=== PATIENT | female | born 1950 | race Caucasian/White ===

== ENCOUNTER 2016-11-14 11:24 | Outpatient (RCR) ==
[2015-09-01 20:41] VITALS: BMI 50.4
--- NOTE | 2016-11-14 13:02 | RS.OPPTEV2 ---
Date of Note: 11/14/16 Visit #: 1 Date of Evaluation: 11/14/16 Payer Source: MEDICARE Date of Onset/Injury/Change in Status: 09/30/16 Surgery Performed?: No Treatment Diagnosis: Lower back pain History of Condition/Mechanism of Injury:: Pt has had back problems off and on since she was 18 yrs old. Now it is hurting all the time. 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 Now she states that her legs feel like rubber bands and do very little to support her so she uses a WC or office chair for her mobility and feels that she will fall when walking even in her bathroom. Prior Level of Function.....Patient was independent with: ADL's, Self Care, Work /Vocation, Caregiving, Ambulation/Mobility, Community Integration/Access Functional Limitations: Sleep, Self Care, ADL's, Reaching, Pushing, Pulling, Lifting, Carrying, Sitting, Standing, Bending, Squatting, Ambulation, Community Access/Integration Current Subjective/complaints:: Patient uses WC and desk chairs for her mobility. She walks very little and states her legs are very weak. She denies falling in the past year but states she staggers all the time. Medical History Medical History Comments:: Graves disease, COPD, continuous O2 at 2 L/min, a fib , CHF, DM type II, self reported vascular disease. Surgical History: Thoracic Spine Smoking Status: Never smoker Pain Assessment - Pain Description Pain Location: Lower back and BLEs (not sure if this is venous or radicular pain ) Pain Description: Burning, Throbbing Pain Description: Constant pain Current Pain Intensity: 6/10 Worst Pain Intensity: 9/10 Functional Outcome Measure Tinetti: 16 (43% disability) - G Codes & Severity Modifier G Codes & Modifier: Mobility, Moving & Walking Around. Eval - CK. Goal - CJ Source of G Code score: Tinetti Observation - Observation Inspection: Patient is obese, in WC with O2 via NC at 2 L/min. Posture: Increased Lumbar Lordosis Gait - Gait Pattern General Gait Pattern Observation: Antalgic Gait (Patient has severe SOB with ambulation and walked ~ 50' prior to need for sitting rest. pO2 86% with this distance and O2 supplimented.) General Muscle Strength: BLE strength 3+ - 4-/5 throughout with rapid muscle fatigue. - ROM Lumbar Flexion: Hand reach to Mid-Thighs Sidebending to Left: Reach to Mid-thigh Sidebending to Right: Reach to Mid-thigh Lumbar Spine ROM Limitations: Pain Palpation Palpation Findings: Tenderness (Right lumbar paraspinals. Difficult to palpate due to obesity.) Sensation - Sensation Sensation Description: Burning (BLEs) Balance - Standing Balance Static Standing Balance: Good Dynamic Standing Balance: Fair Interventions - Exercise/Activities/Manual Therapy Exercises/Activities: NA Manual Therapy: NA - Charges Total Direct Minutes: 45 Total Treatment Time: 45 Procedures billed for this date of service:: PT Robert (High) Assessment Assessment: Patient has constant back pain which has led to muscle weakness in her BLEs and trunk along with decreased balance in standing and decreased functional mobility. Patient Education: Education of diagnosis, Activity Modification, Education of Plan of Care Rehab Potential: Good Short Term Goals Goal #1: Pt reports 50% improvement in core stability w/ bathroom transfers Goal to be met by: 11/30/16 Goal #2: Patient reports average back pain 3/10 Goal to be met by: 11/30/16 Goal #3: Independent in basic HEP Goal to be met by: 11/30/16 Jail Goals Goal #1: Intermittent back pain. Goal to be met by: 12/14/16 Goal #2: BLE strength 5/5 to improve stability decrease back strain. Goal to be met by: 12/14/16 Goal #3: Patient is able to ambulate 200' with O2 and min c/o LBP. Goal to be met by: 12/14/16 Goal #4: I with DC HEP Goal to be met by: 12/14/16 Plan - Treatment to be Provided Procedures: Therapeutic Exercises, Therapeutic Activity, Gait Training, Manual Therapy, Patient Education Modalities: Electrical Stimulation, Ultrasound/Phonophoresis, Cryotherapy, Hot Packs - Treatment Plan Frequency: 2-3X/wk Duration: 4 weeks ORDER # VISITS AND/OR THROUGH DATE: 12/14/2016 - Treatment Code (1) Lumbar radiculopathy Comments: .16 (2) Deconditioned low back Comments: 62.81
--- NOTE | 2016-11-19 13:45 | RS.CXNS ---
Date of scheduled appointment: 11/19/16 Type: No Show
--- NOTE | 2017-01-01 14:31 | RS.QUICKDC ---
Discharge from PT Date of Discharge: 11/28/16 Number of Visits: 1 Reason for Discharge: Patient attended the evaluation only. She did not show for her next scheduled appointment and has not contacted the department to schedule further treatment sessions.
== END 2016-11-27 ==
PROVIDERS: ATTEND Pain Medicine Interventional Pain Medicine
DX: M54.16 Radiculopathy, lumbar region (principal)

== ENCOUNTER 2016-11-14 11:27 | Outpatient (CLI) ==
[2015-09-01 20:41] VITALS: BMI 50.4
--- NOTE | 2016-11-14 13:41 | DI ---
EXAM: Five views of the lumbar spine HISTORY: Lumbar radiculopathy. COMPARISON: CT abdomen pelvis 08/13/2013 FINDINGS: Vertebral bodies demonstrate no acute compression fracture. There is 0.3 cm of retrolisth esis of L5 on S1 with an equal amount of anterolisthesis of L4 on L5. No lytic or blastic lesion is identified. Scattered disc osteophytes and facet arthropathy are present. There is narrowing at t he neural foramen at L5-S1. The soft tissues are unremarkable. IMPRESSION: 1. No acute compression fracture with grade 1 retrolisthesis of L5 on S1 and grade 1 anterolisthesi s of L4 on L5. 2. Multilevel scattered degenerative disease of the spine with narrowing of the neural foramen at L5 -S1.
== END 2016-11-14 11:28 | disposition home or self-care (01) ==
LOC: RAD 11:27
PROVIDERS: ATTEND Nurse Practitioner
DX: M54.16 Radiculopathy, lumbar region (principal)

== ENCOUNTER 2016-11-28 18:18 | Outpatient (CLI) ==
[2016-11-28 18:34] VITALS: BMI 48.9
== END 2016-11-28 18:19 ==
LOC: AMBL 18:18
PROVIDERS: ATTEND Internal Medicine
DX: M25.572 Pain in left ankle and joints of left foot (principal); W54.1XXA Struck by dog, initial encounter

== ENCOUNTER 2016-11-28 18:26 | Emergency (ER) | payer OTHER ==
[2016-11-28 18:34] VITALS: BP 152/93; TEMP 99.9; BMI 48.9
--- NOTE | 2016-11-28 18:37 | ED.PDOC ---
General ED Provider: Dr. EVELYN PARDO Chief Complaint: Ankle Pain/Injury Stated Complaint: ankle, foot pain left side Time Seen by Physician: 18:34 (nurse present at all times ) Mode of Arrival: Ambulance Information Source: Patient Primary Care Provider: PATRICIA PICKARD Nursing and Triage Documentation Reviewed and Agree: Yes (injury limited to left foot and ankle) Musculoskeletal Complaint Exam - Ankle/Foot Complaint/Exam Location of Injury: Reports: Left, Ankle, Foot Mechanism of Injury: Reports: Trauma (blunt force dog steppped on her foot) Onset/Duration: 1 hr Symptoms Are: Reports: Still present Initial Severity: Moderate Current Severity: Moderate Character: Reports: Aching, Throbbing Alleviating: Reports: Rest, Position Aggravating: Reports: Movement Able to Bear Weight: Yes Associated Signs and Symptoms: Denies: Swelling, Redness, Bruising, Fever, Weakness, Numbness, Tingling Gout Risk Factors: Reports: >40 years old Related Surgical History: Reports: None Lower Extremity Findings: Absent: Swelling, Abnormal contour, Rotation, Laceration Achilles Tendon Abnormality: No Differential Diagnosis: Closed Fracture Review of Systems - Review Of Systems Constitutional: Reports: No symptoms Eyes: Reports: No symptoms Ears, Nose, Mouth, Throat: Reports: No symptoms Respiratory: Reports: No symptoms Cardiac: Reports: No symptoms GI: Reports: No symptoms : Reports: No symptoms Musculoskeletal: Reports: Joint pain Skin: Reports: No symptoms Neurological: Reports: No symptoms Endocrine: Reports: No symptoms Hematologic/Lymphatic: Reports: No symptoms All Other Systems: Reviewed and Negative Past Medical History - Past Medical History Previously Healthy: No Endocrine: Reports: None Cardiovascular: Reports: Hypertension, CHF Respiratory: Reports: None Hematological: Reports: None Gastrointestinal: Reports: None Genitourinary: Reports: None Neuro/Psych: Reports: None Musculoskeletal: Reports: None Cancer: Reports: None Last Menstrual Period: 1979 - Surgical History General Surgical History: Reports: None - Family History Family History: Reports: None - Social History Smoking Status: Former smoker Hx Substance Use: No Alcohol Screening: None - Immunizations Tetanus Shot up to Date: Yes Physical Exam - Physical Exam Appearance: Well-appearing, No pain distress, Well-nourished Eyes: LOREN, EOMI, Conjunctiva clear ENT: Ears normal, Nose normal, Oropharynx normal Respiratory: Airway patent, Breath sounds clear, Breath sounds equal, Respirations nonlabored Cardiovascular: RRR, Pulses normal, No rub, No murmur GI/: Soft, Nontender, No masses, Bowel sounds normal, No Organomegaly Musculoskeletal: Normal strength, ROM intact, No edema, No calf tenderness Skin: Warm, Dry, Normal color Neurological: Sensation intact, Motor intact, Reflexes intact, Cranial nerves intact, Alert, Oriented Psychiatric: Affect appropriate, Mood appropriate Interpretation - Radiology Interpretation Radiology Interpretation By: ED Physician Critical Care Note - Critical Care Note Total Time (mins): 0 Course - Course Orders, Labs, Meds: Orders Category Date Time Status ANKLE, LEFT MIN 3 VIEWS Stat RADS 11/28/16 18:29 Ordered FOOT, LEFT 3 VIEWS Stat RADS 11/28/16 18:29 Ordered Vital Signs: Temp Pulse Resp BP Pulse Ox 11/28/16 18:27 99.9 F H 88 24 152/93 H 98 Departure - Departure Time of Disposition: 18:37 Disposition: HOME SELF-CARE Discharge Problem: Ankle pain, Left foot pain Instructions: Arthralgia (ED) Condition: Good Pt referred to PMD for follow-up: No Additional Instructions: Please call your Family Physician as soon as possible to schedule a follow-up appointment. Prescriptions: Hydrocodone/Acetaminophen [[place] 5-325 Tablet] 1 each PO Q6HR PRN #7 tablet PRN Reason: PAIN Allergies/Adverse Reactions: Allergies amoxicillin [Amoxicillin] Adverse Reaction (Verified 03/17/14 21:45) azithromycin Adverse Reaction (Verified 03/17/14 21:45) clarithromycin [From Biaxin] Adverse Reaction (Verified 03/17/14 21:45) Macrolide Antibiotics Adverse Reaction (Verified 03/17/14 21:45) Hives telithromycin [From KETEK] Adverse Reaction (Verified 03/17/14 21:45) Home Medications: Ambulatory Orders Albuterol Sulfate [Proair Hfa] 2 puff IH Q4H 03/17/14 Levothyroxine Sodium [Synthroid] 175 mcg PO DAILY 03/17/14 Aspirin [Adult Low Dose Aspirin EC] 81 mg PO BID 09/04/15 Digoxin [Lanoxin] 125 mcg PO DAILY #30 tablet 09/04/15 Diltiazem HCl [Cardizem] 45 mg PO Q12HR tablet 09/04/15 Fluticasone Propionate [Flonase] 1 spray LAYLA DAILY btl 09/04/15 Furosemide [Lasix] 20 mg PO DAILY #30 tablet 09/04/15 Hydrocodone Bit/Acetaminophen [[place] 7.5-325] 1 tab PO Q6HR PRN 09/04/15 Levofloxacin [Levaquin] 500 mg PO QDAC #5 tablet 09/04/15 Lisinopril [Zestril] 5 mg PO DAILY #30 tablet 09/04/15 Metformin HCl [Glucophage] 500 mg PO BIDWM #60 tablet 09/04/15 Hydrocodone/Acetaminophen [[place] 5-325 Tablet] 1 each PO Q6HR PRN #7 tablet 10/16
--- NOTE | 2016-11-29 07:15 | DI ---
EXAM: Radiographs, left ankle HISTORY: Left ankle pain. COMPARISON: None available. TECHNIQUE: Three views. FINDINGS: Bone mineralization is decreased. There is no fracture or dislocation. The joint spaces are maintained. Small plantar calcaneal spur noted. Diffuse subcutaneous edema noted. Subcutaneo us calcifications seen in the lower leg.. IMPRESSION: No fracture or dislocation.
--- NOTE | 2016-11-29 07:17 | DI ---
EXAM: Radiographs, left foot HISTORY: Left foot pain. COMPARISON: None available. TECHNIQUE: Three views. FINDINGS: Bone mineralization is decreased. There is no fracture or dislocation. The joint spaces are maintained. Mild marginal osteophyte formation seen at the talonavicular and first MTP joints, consistent with osteoarthritis. Small plantar calcaneal spur noted. No focal soft tissue abnormal ity is seen. IMPRESSION: No fracture or dislocation.
== END 2016-11-28 20:33 | disposition home or self-care (01) ==
LOC: ED 18:26
DX: M25.572 Pain in left ankle and joints of left foot (principal); W54.1XXA Struck by dog, initial encounter
CPT/HCPCS: 99283

== ENCOUNTER 2017-01-29 06:41 | Outpatient (CLI) ==
[2017-01-29 09:26] LABS: BILIRUBIN,URINE Negative (NEGATIVE); KETONES,URINE Negative (NEGATIVE); LEUKOCYTE ESTERASE ,URINE 3+ (NEGATIVE); NITRITE,URINE Positive (NEGATIVE); PH,URINE 5.5 (5-9); PROTEIN,URINE 1+ (NEGATIVE); URINE, BLOOD 2+ (NEGATIVE)
[2017-01-29 09:34] LABS: ADD URINE MICROSCOPIC YES
--- NOTE | 2017-01-30 12:24 | ECHO2D ---
Date of Exam: 01/29/17 Ordering Physician: PATRICIA PICKARD Reason for Echo: LVH, A-FIB, SOB M-Mode Normal Adult Results LV Dimensions Normal Adult Results AoV Opening excursions >1.6 >1.6 LVEDD-base- 3.5-5.8 5.0 Ao root dimensions 2.0-3.7 3.3 LVESD-base- 3.1-4.6 L. Atrium dimensions 1.9-3.8 6.2 Post. Wall thickness 0.8-1.1 1.4 IV septum (thickness) 0.7-1.2 1.4 Post. Wall excursion 0.72-1.3 NORMAL Septal motion 0.4 Systolic motion R. Ventricular cavity 1.5-2.0 NORMAL LVEF 60% 48% Paradoxical septal wall motion NORMAL 2-D : ENLARGED LEFT ATRIAL CAVITY--NORMAL VALVES--NO EFFUSION, NO THROMBUS, STIFF HYPOKINETIC SEPTUM--MAYBE PARADOXICAL SEPTAL WALL. M-MODE: MV: NORMAL--POSSIBLE MITRAL VALVE PROLAPSE AV: NORMAL TV: NORMAL PV: CHAMBER SIZE: ENLARGED LEFT ATRIAL CAVITY WALL MOTION: STIFF HYPOKINETIC/MAYBE PARADOXICAL SEPTAL WALL PERICARDIUM: NORMAL INTERPRETATION: 1. PARADOXICAL/HYPOKINETIC STIFF SEPTUM LEFT VENTRICULAR EJECTION FRACTION 45 TO 50% 2. LEFT VENTRICLE HYPERTROPHY 3. ENLARGED LEFT ATRIAL CAVITY MTDD
== END 2017-01-29 06:42 | disposition home or self-care (01) ==
LOC: CAR 06:41
PROVIDERS: ATTEND Internal Medicine
DX: R30.0 Dysuria (principal); R06.02 Shortness of breath; I48.91 Unspecified atrial fibrillation; I51.7 Cardiomegaly
CPT/HCPCS: 81001; 87086; 87186; 93005; 93010

== ENCOUNTER 2017-03-18 11:22 | Outpatient (CLI) | payer OTHER ==
--- NOTE | 2017-03-18 12:24 | DI ---
Exam: Five views lumbar spine including bilateral oblique. Clinical indication: Low back pain with radiculopathy. Findings: There is a mild lumbar scoliosis convex left. There is also mild anterolisthesis of L4 on L5 of mau roximately 0.4 cm. The remainder the alignment is within normal limits. There is mild multilevel degenerative disc disease throughout the lumbar spine with moderate degener ative disc disease at the L5-S1 level. The remainder the visualized bony structures are grossly unr emarkable. There is aortoiliac atherosclerotic vascular calcifications. Impression: 1. Mild lumbar scoliosis convex left. 2. Mild anterolisthesis of L4 on L5. 3. Multilevel degenerative disc disease which is moderate at the L5-S1 level.
== END 2017-03-18 11:23 | disposition home or self-care (01) ==
LOC: RAD 11:22
PROVIDERS: ATTEND Nurse Practitioner
DX: M54.16 Radiculopathy, lumbar region (principal); M51.36 Other intervertebral disc degeneration, lumbar region; M54.40 Lumbago with sciatica, unspecified side

== ENCOUNTER 2017-09-23 10:53 | Inpatient (IN) | payer OTHER ==
[2017-09-23] MEDS ORDERED: XOPENEX 0.63 MG NEB STA (10:55)
[2017-09-23] MEDS ORDERED: SODIUM CHLORIDE 1,000 ML IV STA ×3 (10:57→12:14)
[2017-09-23] MEDS ORDERED: LEVAQUIN 500 MG in PREMIX 100 ML D5W 1 BAG IV STA (10:58)
--- NOTE | 2017-09-23 11:21 | ED.PDOC ---
General ED Provider: Dr. FADUMO CHARLTON-ER Chief Complaint: Respiratory Complaint Stated Complaint: tal been sick for a week with cough, chest congestion and fever Time Seen by Physician: 11:00 Mode of Arrival: Ambulance Information Source: Patient Exam Limitations: No limitations Primary Care Provider: PATRICIA KAUR Nursing and Triage Documentation Reviewed and Agree: Yes Reviewed sepsis parameters & appropriate labs ordered?: Yes System Inflammatory Response Syndrome: Temp 101F or Greater Sepsis Protocol: For patient's 13 years and over: Temp is 96.8 and below OR 101 and greater Pulse >90 BPM Resp >20/minute Acutely Altered Mental Status Are patient's symptoms suggestive of a new infection, such as: -Pneumonia -Skin, Soft Tissue -Endocarditis -UTI -Bone, Joint Infection -Implantable Device -Acute Abdominal Infection -Wound Infection -Meningitis -Blood Stream Catheter Infection -Unknown Respiratory Complaint Exam - Shortness of Air Complaint/Exam Onset/Duration: several days Symptoms Are: Still present Timing: Constant Initial Severity: Moderate Current Severity: Moderate Character: Reports: Dyspnea at rest Aggravating: Reports: None Alleviating: Reports: None Associated Signs and Symptoms: Reports: Cough, Chest pain with cough, Fever, Chills, Nasal congestion, Labored breathing History of Healthcare-Acquired Pneumonia: No Pseudomonas Risk Factors: Reports: Chronic Lung Disease Tuberculosis Risk Factors: Reports: Chronic Resp. Faliure Home Oxygen Use: Yes Recent Stress Test: No Recent Echo/LV Function: No Respiratory Distress: None Stridor Present: No Tracheal Deviation: No Subcutaneous Emphysema: No Accessory Muscle Use: No Retractions: Not Present Diminished Breath Sounds: No Prolonged Expiratory Phase: No Unable to Speak Full Sentences: No Fatigue: Yes Leg Swelling: No Devyn's Sign Present: No Grunting Respirations: No Kussmaul Respirations: No Differential Diagnoses: Pneumonia Quality Indicator For Non-Traumatic Chest Pain/Syncope: EKG Performed Review of Systems - Review Of Systems Constitutional: Reports: Chills, Fever, Weakness Eyes: Reports: No symptoms Ears, Nose, Mouth, Throat: Reports: No symptoms Respiratory: Reports: Cough Cardiac: Reports: No symptoms GI: Reports: No symptoms : Reports: No symptoms Musculoskeletal: Reports: No symptoms Skin: Reports: No symptoms Neurological: Reports: No symptoms Endocrine: Reports: No symptoms Hematologic/Lymphatic: Reports: No symptoms All Other Systems: Reviewed and Negative Past Medical History - Past Medical History Previously Healthy: No Endocrine: Reports: None Cardiovascular: Reports: Hypertension, CHF Respiratory: Reports: COPD Hematological: Reports: None Gastrointestinal: Reports: None Genitourinary: Reports: None Neuro/Psych: Reports: None Musculoskeletal: Reports: None Cancer: Reports: None Last Menstrual Period: n/a - Surgical History General Surgical History: Reports: None - Family History Family History: Reports: None - Social History Smoking Status: Former smoker Hx Substance Use: No Alcohol Screening: None Lives: With family Physical Exam - Physical Exam Appearance: Ill-appearing Ill-appearing: Mild Eyes: LOREN, EOMI, Conjunctiva clear ENT: Ears normal Neck: Supple Respiratory: Crackles, Rhonchi Cardiovascular: RRR, Pulses normal, No rub, No murmur GI/: Soft Musculoskeletal: Normal strength Skin: Warm, Dry, Normal color Neurological: Sensation intact, Motor intact, Reflexes intact, Cranial nerves intact, Alert, Oriented Psychiatric: Affect appropriate, Mood appropriate Interpretation - Radiology Interpretation Radiology Interpretation By: Radiologist Radiology Results: Positive Exam Interpreted: CT Scan ("bilateral pneumonia") Re-Evaluation - Re-Evaluation Time of Re-Evaluation: 13:32 Status: Improved Vital Signs Stable: Yes Pain Level: 0 Appearance: NAD Lungs: Clear Skin: Warm and Dry Neuro: Alert and Oriented X3 CV: RRR Physician Notification - Case Discussed Physician Notified: dr kaur Time of Notification: 13:32 Critical Care Note - Critical Care Note Total Time (mins): 30 Course - Course Hematology/Chemistry: 09/23/17 11:30 09/23/17 11:30 Orders, Labs, Meds: Lab Review 09/23/17 09/23/17 09/23/17 10:54 11:10 11:30 WBC 17.44 H RBC 3.33 L Hgb 8.3 L Hct 27.7 L MCV 83.2 MCH 24.9 L MCHC 30.0 L RDW Coeff of Taylor 17.6 H Plt Count 381 Immature Gran % (Auto) 0.6 Neut % (Auto) 77.0 Lymph % (Auto) 15.8 [place] % (Auto) 5.6 Eos % (Auto) 0.9 Baso % (Auto) 0.1 Immature Gran # (Auto) 0.1 Neut # 13.4 H Lymph # 2.8 [place] # 1.0 Eos # 0.2 Baso # 0.0 Puncture Site Rr O2 Saturation 89.0 L ABG pH 7.425 ABG pCO2 32.6 L ABG pO2 55.0 L* ABG HCO3 21.4 L ABG Total CO2 22 ABG Base Excess -3 L Scooby Test + O2 Delivery Device Nc Oxygen Liter Flow 2.00 FiO2 % 28.0 Sodium Potassium Chloride Carbon Dioxide Anion Gap BUN Creatinine Estimated GFR (MDRD) BUN/Creatinine Ratio Glucose Calcium Total Bilirubin AST ALT Alkaline Phosphatase Total Creatine Kinase Troponin I B-Natriuretic Peptide Total Protein Albumin Globulin Albumin/Globulin Ratio Procalcitonin Urine Color Urine Clarity Urine pH Ur Specific [place] Urine Protein Urine Glucose (UA) Urine Ketones Urine Blood Urine Nitrite Urine Bilirubin Urine Urobilinogen Ur Leukocyte Esterase Urine Microscopic RBC Urine Microscopic WBC Ur Squamous Epith Cells Urine Bacteria Digoxin Influenza A (Rapid) Negative by naat Influenza B (Rapid) Positive by naat H 09/23/17 09/23/17 09/23/17 11:30 11:30 11:30 WBC RBC Hgb Hct MCV MCH MCHC RDW Coeff of Taylor Plt Count Immature Gran % (Auto) Neut % (Auto) Lymph % (Auto) [place] % (Auto) Eos % (Auto) Baso % (Auto) Immature Gran # (Auto) Neut # Lymph # [place] # Eos # Baso # Puncture Site O2 Saturation ABG pH ABG pCO2 ABG pO2 ABG HCO3 ABG Total CO2 ABG Base Excess Scooby Test O2 Delivery Device Oxygen Liter Flow FiO2 % Sodium 134 L Potassium 4.6 Chloride 104 Carbon Dioxide 21 L Anion Gap 13.6 BUN 28 H Creatinine 1.65 H Estimated GFR (MDRD) 31.00 BUN/Creatinine Ratio 16.96 Glucose 260 H Calcium 8.4 Total Bilirubin 0.4 AST 16 ALT 10 L Alkaline Phosphatase 71 Total Creatine Kinase 12 Troponin I 0.0450 B-Natriuretic Peptide 124 H Total Protein 9.3 H Albumin 2.4 L Globulin 6.9 Albumin/Globulin Ratio 0.35 Procalcitonin Urine Color Urine Clarity Urine pH Ur Specific [place] Urine Protein Urine Glucose (UA) Urine Ketones Urine Blood Urine Nitrite Urine Bilirubin Urine Urobilinogen Ur Leukocyte Esterase Urine Microscopic RBC Urine Microscopic WBC Ur Squamous Epith Cells Urine Bacteria Digoxin 0.40 L Influenza A (Rapid) Influenza B (Rapid) 09/23/17 09/23/17 11:30 12:07 WBC RBC Hgb Hct MCV MCH MCHC RDW Coeff of Taylor Plt Count Immature Gran % (Auto) Neut % (Auto) Lymph % (Auto) [place] % (Auto) Eos % (Auto) Baso % (Auto) Immature Gran # (Auto) Neut # Lymph # [place] # Eos # Baso # Puncture Site O2 Saturation ABG pH ABG pCO2 ABG pO2 ABG HCO3 ABG Total CO2 ABG Base Excess Scooby Test O2 Delivery Device Oxygen Liter Flow FiO2 % Sodium Potassium Chloride Carbon Dioxide Anion Gap BUN Creatinine Estimated GFR (MDRD) BUN/Creatinine Ratio Glucose Calcium Total Bilirubin AST ALT Alkaline Phosphatase Total Creatine Kinase Troponin I B-Natriuretic Peptide Total Protein Albumin Globulin Albumin/Globulin Ratio Procalcitonin 0.24 Urine Color Yellow Urine Clarity Cloudy Urine pH 5.5 Ur Specific [place] 1.020 Urine Protein 2+ Urine Glucose (UA) Negative Urine Ketones Negative Urine Blood 2+ Urine Nitrite Positive Urine Bilirubin Negative Urine Urobilinogen 0.2 Ur Leukocyte Esterase 2+ Urine Microscopic RBC 5-10 Urine Microscopic WBC 10-20 Ur Squamous Epith Cells 5-10 Urine Bacteria 3+ Digoxin Influenza A (Rapid) Influenza B (Rapid) Orders Category Date Time Status ABG DRAW REQUEST Stat CARDIO 09/23/17 10:54 Completed EKG-(ED ONLY) Stat CARDIO 09/23/17 10:54 Completed NEBULIZER TREATMENT Stat CARDIO 09/23/17 10:55 Completed Manager Government [ED TRANSMISSION MAINTENANCE SUPERVISOR APPLIED] .ONCE EMERGENCY 09/23/17 10:56 Active IV [ED IV/MEDIPORT/POWERPORT] .ONCE EMERGENCY 09/23/17 10:55 Active ABG Stat LAB 09/23/17 10:54 Completed B-TYPE NATRIURETIC PEPTIDE Stat LAB 09/23/17 11:30 Completed BLOOD CULTURE (ED ONLY) Stat LAB 09/23/17 11:30 Received CBC W/ AUTO DIFF Stat LAB 09/23/17 11:30 Completed COMPREHENSIVE METABOLIC PANEL Stat LAB 09/23/17 11:30 Completed CREATINE KINASE Stat LAB 09/23/17 11:30 Completed DIGOXIN Stat LAB 09/23/17 11:30 Completed PROCALCITONIN Stat LAB 09/23/17 11:30 Completed RAPID FLU A/B Stat LAB 09/23/17 11:10 Completed TROPONIN I Stat LAB 09/23/17 11:30 Completed URINALYSIS C & S IF INDICATED Stat LAB 09/23/17 12:07 Completed URINE CULTURE Routine LAB 09/23/17 12:00 Received 0.9 % Sodium Chloride [Saline Flush] MEDS 12/25/17 10:55 Ordered 1 syr IVF PRN PRN Acetaminophen [Tylenol] MEDS 09/23/17 11:27 Discontinued 650 mg PO ONCE STA Digoxin Inj [Lanoxin] MEDS 09/23/17 12:49 Discontinued 125 mcg IVP ONCE STA Levalbuterol HCl [Xopenex 0.63 mg] MEDS 09/23/17 10:55 Discontinued 1 vial NEB ONCE STA Levofloxacin/D5w [Levaquin] 100 ml MEDS 09/23/17 11:55 Discontinued IV .STK-MED Levofloxacin/D5w [Levaquin] 500 mg MEDS 09/23/17 10:58 Discontinued Premix 100 ml D5w 1 bag IV ONCE Oseltamivir Phosphate [Tamiflu] MEDS 09/23/17 12:02 Discontinued 75 mg PO ONCE STA Sodium Chloride 0.9% [Sodium Chloride] 1,000 ml MEDS 09/23/17 10:57 Discontinued IV 100 mls/hr Sodium Chloride 0.9% [Sodium Chloride] 1,000 ml MEDS 09/23/17 12:14 Discontinued IV 500 mls/hr CT CHEST W/O CONTRAST Stat RADS 09/23/17 10:57 Completed Medications Generic Name Dose Route Start Last Admin Trade Name Freq PRN Reason Stop Dose Admin Sodium Chloride 1 syr 09/23/17 10:55 09/23/17 13:27 Saline Flush IVF 1 syr PRN PRN Administration To flush IV Discontinued Medications Generic Name Dose Route Start Last Admin Trade Name Freq PRN Reason Stop Dose Admin Acetaminophen 650 mg 09/23/17 11:27 09/23/17 12:04 Tylenol PO 09/23/17 11:28 650 mg ONCE STA Administration Digoxin 125 mcg 09/23/17 12:49 09/23/17 13:26 Lanoxin IVP 09/23/17 12:50 125 mcg ONCE STA Administration Sodium Chloride 1,000 mls @ 100 mls/hr 09/23/17 10:57 09/23/17 12:06 Sodium Chloride IV 09/23/17 20:56 100 mls/hr .Q10H STA Administration Levofloxacin/Dextrose 500 mg/ 100 mls @ 100 mls/hr 09/23/17 10:58 09/23/17 12 :02 Dextrose IV 09/23/17 11:57 100 mls/hr ONCE STA Administration Sodium Chloride 1,000 mls @ 500 mls/hr 09/23/17 12:14 09/23/17 12:22 Sodium Chloride IV 09/23/17 12:56 500 mls/hr .Q2H STA Administration Levalbuterol HCl 1 vial 09/23/17 10:55 09/23/17 11:30 Xopenex 0.63 Mg NEB 09/23/17 10:56 1 vial ONCE STA Administration Oseltamivir Phosphate 75 mg 09/23/17 12:02 09/23/17 12:21 Tamiflu PO 09/23/17 12:03 75 mg ONCE STA Administration Vital Signs: Temp Pulse Resp BP Pulse Ox 09/23/17 13:26 143 H 09/23/17 10:57 101.7 F H 135 H 28 H 132/88 90 L Departure - Departure Time of Disposition: 13:32 Disposition: ADMITTED INPATIENT Discharge Problem: Influenza B Acute respiratory failure Qualifiers: Respiratory failure complication: hypoxia Qualified Code(s): J96.01 - Acute respiratory failure with hypoxia Pneumonia Qualifiers: Pneumonia type: due to unspecified organism Laterality: bilateral Lung location : unspecified part of lung Qualified Code(s): J18.9 - Pneumonia, unspecified organism Instructions: Influenza (ED) Condition: Stable Pt referred to PMD for follow-up: Yes Allergies/Adverse Reactions: Allergies amoxicillin [Amoxicillin] Adverse Reaction (Verified 09/23/17 11:12) azithromycin Adverse Reaction (Verified 09/23/17 11:12) clarithromycin [From Biaxin] Adverse Reaction (Verified 09/23/17 11:12) Macrolide Antibiotics Adverse Reaction (Verified 09/23/17 11:12) Hives telithromycin [From KETEK] Adverse Reaction (Verified 09/23/17 11:12) Home Medications: Ambulatory Orders Albuterol Sulfate [Proair Hfa] 2 puff IH Q4H 03/17/14 Levothyroxine Sodium [Synthroid] 175 mcg PO DAILY 03/17/14 Aspirin [Adult Low Dose Aspirin EC] 81 mg PO BID 09/04/15 Digoxin [Lanoxin] 125 mcg PO DAILY #30 tablet 09/04/15 Diltiazem HCl [Cardizem] 45 mg PO Q12HR tablet 09/04/15 Fluticasone Propionate [Flonase] 1 spray LAYLA DAILY btl 09/04/15 Furosemide [Lasix] 20 mg PO DAILY #30 tablet 09/04/15 Hydrocodone Bit/Acetaminophen [Delta 7.5-325] 1 tab PO Q6HR PRN 09/04/15 Lisinopril [Zestril] 5 mg PO DAILY #30 tablet 09/04/15 Metformin HCl [Glucophage] 500 mg PO BIDWM #60 tablet 09/04/15 Transfer Form Completed: Yes Disposition Discussed With: Patient
[2017-09-23] MEDS ORDERED: TYLENOL PO STA (11:27)
[2017-09-23] MEDS ORDERED: LEVAQUIN 100 ML IV ONE (11:55)
[2017-09-23] MEDS ORDERED: TAMIFLU PO STA (12:02)
[2017-09-23] MEDS ORDERED: LANOXIN IVP STA (12:49)
--- NOTE | 2017-09-23 13:01 | CT ---
EXAM: CT THORAX HISTORY: Cough, congestion. TECHNIQUE: CT thorax without intravenous contrast. Multiplanar images presented. Coronal and sagit jemima re-formations. COMPARISON: 03/23/2014 FINDINGS: Mild cardiac enlargement. There is moderate atherosclerotic disease. The mediastinal and hilar stru ctures are poorly evaluated without the administration of intravenous contrast. There are multiple m ediastinal and hilar lymph nodes much greater number than normally seen extending to a minimal degree to the supraclavicular spaces bilaterally and axilla. Lungs reveal moderate apparent nodular airspace infiltrates mainly in a bronchial distribution and gr eater in the lower lobes of the upper lobe. There is no evidence of active congestive heart failure. No pleural fluid or pneumothorax. The bones reveal no acute abnormality. Bilateral breast implants are noted. Incidental note of mult iple left renal calculi and prominence of the left renal pelvis. There is also a left adrenal mass wh ich is indeterminate in attenuation values at 22 [place]. This measures 2.4 cm per IMPRESSION: 1. Bilateral bronchial pneumonia. Follow-up CT is recommended as some of these infiltrates are nodul ar. 2. Lymphadenopathy or lymphadenitis. Attention to this at follow up recommended. 3. Atherosclerotic disease. 4. Mild cardiac enlargement. 5. Multiple left renal calculi and prominence of the left renal pelvis. This could represent hydron ephrosis. 6. Left adrenal mass possibly an adenoma although indeterminate on the current study. Follow-up adre nal protocol CT is recommended.
[2017-09-23] MEDS ORDERED: NORCO 7.5-325 PO PRN (13:40)
[2017-09-23] MEDS ORDERED: XOPENEX 0.63 MG NEB SCH (15:00)
[2017-09-23] MEDS: SODIUM CHLORIDE 1,000 ML IV SCH (15:14)
[2017-09-23] MEDS ORDERED: VANCOMYCIN 1,000 MG in SODIUM CHLORIDE 200 ML IV STA (15:51)
[2017-09-23] MEDS ORDERED: TORADOL IVP STA (18:24)
[2017-09-23] MEDS ORDERED: SOLU-MEDROL 125 MG IVP STA (18:25)
[2017-09-23] MEDS: SOLU-MEDROL 40 MG IVP SCH (21:38)
[2017-09-23] MEDS: TAMIFLU PO SCH (21:38)
[2017-09-23] MEDS: VANCOMYCIN 500 MG in SODIUM CHLORIDE 100 ML IV SCH (21:38)
[2017-09-23] MEDS: ASPIRIN EC PO SCH (21:38)
[2017-09-23] MEDS: HUMULIN R SUBCUT PRN (21:39)
[2017-09-23] MEDS: CARDIZEM PO SCH (21:39)
[2017-09-23] MEDS: XOPENEX 0.63 MG NEB SCH (23:16)
[2017-09-24] MEDS: XOPENEX 0.63 MG NEB SCH ×3 (05:22→22:13)
[2017-09-24] MEDS: HUMULIN R SUBCUT PRN ×3 (06:05→21:15)
[2017-09-24] MEDS: LASIX TAB PO SCH (06:06)
[2017-09-24] MEDS: SYNTHROID PO SCH ×2 (06:06)
[2017-09-24] MEDS: TORADOL IVP SCH ×3 (06:06→20:49)
[2017-09-24] MEDS ORDERED: NON-FORMULARY MEDICATION (Levothyroxine Sodium [Synthroid] 175 MCG) PO SCH (09:00)
[2017-09-24] MEDS ORDERED: VANCOMYCIN 1,000 MG in SODIUM CHLORIDE 200 ML IV SCH (09:00)
[2017-09-24] MEDS: ZESTRIL PO SCH (09:50)
[2017-09-24] MEDS: LEVAQUIN 500 MG in PREMIX 100 ML D5W 1 BAG IV SCH (09:50)
[2017-09-24] MEDS: LANOXIN PO SCH (09:50)
[2017-09-24] MEDS: CARDIZEM PO SCH ×2 (09:50→20:48)
[2017-09-24] MEDS: ASPIRIN EC PO SCH ×2 (09:51→17:22)
[2017-09-24] MEDS: TAMIFLU PO SCH ×2 (09:51→20:49)
[2017-09-24] MEDS: LOVENOX SUBCUT SCH (09:51)
[2017-09-24] MEDS: SOLU-MEDROL 40 MG IVP SCH ×2 (09:52→20:48)
--- NOTE | 2017-09-24 10:50 | PCM.PROG ---
Attending Provider: ATTENDING PROVIDER: Dr. PATRICIA PICKARD DATE OF SERVICE: 09/24/17 SUBJECTIVE: This 66 year old WHITE/ F was hospitalized 09/23/17. Hospitalized with acute respiratory failure, bilateral pneumonia, Influenza A positive. The patient also had atrial fibrillation with rapid ventricular response, anemia with hemoglobin of 8.3 and HCT of 27.7; she was symptomatic of anemia with anemia with shortness of breath and pneumonia. The patient has been given 2 units of PRBCs. Hemoglobin has gone up 9.3 with hematocrit of 30. She is feeling better and in no distress. REVIEW OF SYSTEMS: CONSTITUTIONAL: The patient is feeling better. No night sweats. No fatigue, malaise, lethargy. No fever or chills. HEENT: Eyes: No visual changes. No eye pain. No eye discharge. ENT: No runny nose. No epistaxis. No sinus pain. No odynophagia. No congestion. RESPIRATORY: Mild cough and congestion. No hemoptysis. No shortness of breath. CARDIOVASCULAR: No angina symptoms. No CHF symptoms. No atypical chest pain for CAD. No palpitations. No orthopnea.. GASTROINTESTINAL: Appetite is improving. No abdominal pain. No nausea or vomiting. No diarrhea or constipation. No hematemesis. No hematochezia. GENITOURINARY: No urgency. No frequency. No dysuria. No hematuria. No obstructive symptoms. No discharge. No pain. No significant abnormal bleeding. MUSCULOSKELETAL: Less pain with less flu-type symptoms. NEUROLOGICAL: Awake, alert, oriented to time, place and person. No headache. No neck pain. No syncope. No seizures. No dizziness. PSYCHIATRIC: Not anxious. No depression. No suicidal thoughts. No homicidal thoughts. SKIN: No rash. No lesions. No wounds. ENDOCRINE: No unexplained weight loss. No weight gain. HEMATOLOGIC/LYMPHATIC: No anemia. No purpura. No petechiae. No prolonged or excessive bleeding. No palpable lymph nodes. PHYSICAL EXAMINATION: GENERAL: The patient is awake, alert and oriented, lying/sitting in bed in no distress. VITAL SIGNS: Temperature 97.4 F, Pulse 88, Respiratory Rate 18, BP 139/66, Pulse Ox 96% HEENT: Head normocephalic, atraumatic. Eyes: Extraocular muscles are intact. Pupils are equal, round and reactive to light and accommodation. Ears: No lesions. Nose appeared normal. Throat: No exudate or erythema. NECK: Supple. No JVD, no carotid bruit. No lymphadenopathy or thyromegaly. LUNGS: Decreased breath sounds with mild wheeze. Percussion note normal. Chest symmetrical. HEART: S1, S2, no S3. No murmurs. No cyanosis or clubbing. No ascites. Pulses: Dorsalis pedis and posterior tibial pulses +1 to +2 both sides. ABDOMEN: Soft. Non-tender. Bowel sounds active. No CVA tenderness. No mass felt. EXTREMITIES: No edema. Full range of motion of all extremities, equal. NEUROLOGIC: No focal deficit. Cranial nerves II through XII are grossly intact. No headache, no double vision or headache. SKIN: Not dry. Intact. Turgor-normal. LYMPHATIC: No palpable lymph nodes/no lymphedema. MUSCULOSKELETAL: Normal joints with no swelling. Muscle tone is normal. LAB REVIEW: 09/24/17 07:50 09/24/17 07:50 09/24/17 07:50: Sodium 134 L, Potassium 4.3, Chloride 106, Carbon Dioxide 20 L, Anion Gap 12.3, BUN 29 H, Creatinine 1.77 H, Estimated GFR (MDRD) 29.00, BUN/ Creatinine Ratio 16.38, Glucose 417 H D, Calcium 8.2, Total Bilirubin 0.7, AST 14 L, ALT 11 L, Alkaline Phosphatase 61, Total Protein 8.8 H, Albumin 2.2 L, Globulin 6.6, Albumin/Globulin Ratio 0.33 09/24/17 07:50: WBC 21.81 H, RBC 3.65 L, Hgb 9.3 L, Hct 30.0 L, MCV 82.2, MCH 25.5 L, MCHC 31.0 L, RDW Coeff of Taylor 16.8 H, Plt Count 323, Immature Gran % ( Auto) 2.4, Neut % (Auto) 83.8, Lymph % (Auto) 11.0, [place] % (Auto) 2.7, Eos % ( Auto) 0.0, Baso % (Auto) 0.1, Immature Gran # (Auto) 0.5, Neut # 18.3 H, Lymph # 2.4, [place] # 0.6, Eos # 0.0, Baso # 0.0 09/23/17 19:10: Blood Type O POSITIVE, Antibody Screen Negative, Crossmatch (AHG ) See Detail ASSESSMENT: 1. Acute respiratory failure seems to be under control. 2. Pneumonia clinically improving. 3. Anemia - 2 units PRBCs given with no evidence of active GI bleed. 4. Atrial fib with acceptable rapid ventricular response. 5. Influenza A treated with Tamiflu. 6. Restless leg syndrome. PLAN: 1. Regular diet 2. Monitor for fluid overload 3. D/C IV fluids after current bag finishes 4. Continue IV antibiotics 5. Continue nebs and steroids 6. Requip 7. Monitor CBC, CMP 8. Monitor telemetry Plan and coordination of the patient's care discussed in the presence of Bb Shot Packer and nurse. CONDITION: Stable SCRIBED BY: JOSE CARLOS ORTEGA Electronic Court Recorder scribed while in presence of service performed by Dr. PATRICIA PICKARD on 09/24/17 ([id number])
[2017-09-24] MEDS: VANCOMYCIN 500 MG in SODIUM CHLORIDE 100 ML IV SCH ×2 (11:55→20:47)
[2017-09-24] MEDS: SODIUM CHLORIDE 1,000 ML IV SCH (20:04)
[2017-09-24] MEDS ORDERED: VANCOMYCIN ONE (20:10)
[2017-09-24] MEDS: REQUIP PO SCH (20:48)
[2017-09-25] MEDS: XOPENEX 0.63 MG NEB SCH ×4 (05:00→23:00)
[2017-09-25] MEDS: LASIX TAB PO SCH (05:41)
[2017-09-25] MEDS: TORADOL IVP SCH ×3 (05:41→21:11)
[2017-09-25] MEDS: SYNTHROID PO SCH ×2 (05:41)
[2017-09-25] MEDS: SODIUM CHLORIDE 1,000 ML IV SCH ×2 (05:52→12:49)
[2017-09-25] MEDS: HUMULIN R SUBCUT PRN ×4 (06:31→21:07)
[2017-09-25] MEDS: LANTUS SUBCUT SCH ×2 (08:46→21:07)
[2017-09-25] MEDS: REQUIP PO SCH (08:47)
[2017-09-25] MEDS: LOVENOX SUBCUT SCH (08:47)
[2017-09-25] MEDS: VANCOMYCIN 500 MG in SODIUM CHLORIDE 100 ML IV SCH ×2 (08:47→21:08)
[2017-09-25] MEDS: CARDIZEM PO SCH ×2 (08:47→21:06)
[2017-09-25] MEDS: LANOXIN PO SCH (08:48)
[2017-09-25] MEDS: TAMIFLU PO SCH ×2 (08:48→21:06)
[2017-09-25] MEDS: ASPIRIN EC PO SCH ×2 (08:48→18:39)
[2017-09-25] MEDS: ZESTRIL PO SCH (08:49)
[2017-09-25] MEDS: LEVAQUIN 500 MG in PREMIX 100 ML D5W 1 BAG IV SCH (10:41)
--- NOTE | 2017-09-25 11:00 | PCM.PROG ---
Attending Provider: ATTENDING PROVIDER: Dr. PATRICIA PICKARD This patient is seen with Lacey Gipson, Nurse Practitioner. DATE OF SERVICE: 09/25/17 SUBJECTIVE: This 66 year old WHITE/ F was hospitalized 09/23/17. The patient is sitting in chair, alert, has congested cough. She is not sleeping at night. REVIEW OF SYSTEMS: CONSTITUTIONAL: Fatigue. No night sweats. No fever or chills. HEENT: Eyes: No visual changes. No eye pain. No eye discharge. ENT: No runny nose. No epistaxis. No sinus pain. No odynophagia. No congestion. RESPIRATORY: Shortness of breath. Cough and congestion. No hemoptysis. CARDIOVASCULAR: No angina symptoms. No CHF symptoms. No atypical chest pain for CAD. No palpitations. No orthopnea.. GASTROINTESTINAL: No abdominal pain. No nausea or vomiting. No diarrhea or constipation. No hematemesis. No hematochezia. GENITOURINARY: No urgency. No frequency. No dysuria. No hematuria. No obstructive symptoms. No discharge. No pain. No significant abnormal bleeding. MUSCULOSKELETAL: No musculoskeletal pain; no joint swelling. NEUROLOGICAL: Awake, alert, oriented to time, place and person. No headache. No neck pain. No syncope. No seizures. No dizziness. PSYCHIATRIC: Not anxious. No depression. No suicidal thoughts. No homicidal thoughts. SKIN: No rash. No lesions. No wounds. ENDOCRINE: No unexplained weight loss. No weight gain. HEMATOLOGIC/LYMPHATIC: No anemia. No purpura. No petechiae. No prolonged or excessive bleeding. No palpable lymph nodes. PHYSICAL EXAMINATION: GENERAL: The patient is awake, alert and oriented, sitting in chair in no distress. VITAL SIGNS: Temperature 97.3 F, Pulse 94, Respiratory Rate 16, BP 149/82, Pulse Ox 97% HEENT: Head normocephalic, atraumatic. Eyes: Extraocular muscles are intact. Pupils are equal, round and reactive to light and accommodation. Ears: No lesions. Nose appeared normal. Throat: No exudate or erythema. NECK: Supple. No JVD, no carotid bruit. No lymphadenopathy or thyromegaly. LUNGS: Bilateral rhonchi. Percussion note normal. Chest symmetrical. HEART: Irregular heart rate. S1, S2, no S3. No murmurs. No cyanosis or clubbing. No ascites. Pulses: Dorsalis pedis and posterior tibial pulses +1 to +2 both sides. ABDOMEN: Soft. Non-tender. Bowel sounds active. No CVA tenderness. No mass felt. EXTREMITIES: No edema. Full range of motion of all extremities, equal. NEUROLOGIC: No focal deficit. Cranial nerves II through XII are grossly intact. No headache, no double vision or headache. SKIN: Not dry. Intact. Turgor-normal. LYMPHATIC: No palpable lymph nodes/no lymphedema. MUSCULOSKELETAL: Normal joints with no swelling. Muscle tone is normal. LAB REVIEW: 09/25/17 05:20 09/25/17 05:20 09/25/17 05:20: Sodium 136, Potassium 4.5, Chloride 110 H, Carbon Dioxide 19 L, Anion Gap 11.5, BUN 40 H, Creatinine 1.82 H, Estimated GFR (MDRD) 28.00, BUN/ Creatinine Ratio 21.97, Glucose 512 H* D, Calcium 8.8, Total Bilirubin 0.4, AST 16, ALT 14, Alkaline Phosphatase 72, Total Protein 8.7 H, Albumin 2.2 L, Globulin 6.5, Albumin/Globulin Ratio 0.34 09/25/17 05:20: WBC 19.37 H, RBC 3.69 L, Hgb 9.6 L, Hct 30.2 L, MCV 81.8, MCH 26.0 L, MCHC 31.8, RDW Coeff of Taylor 17.2 H, Plt Count 340, Neutrophils % (Manual ) 89.0 H, Band Neutrophils % 2.0, Lymphocytes % (Manual) 5.0 L, Monocytes % ( Manual) 4.0, Anisocytosis Not present 09/24/17 07:50: Sodium 134 L, Potassium 4.3, Chloride 106, Carbon Dioxide 20 L, Anion Gap 12.3, BUN 29 H, Creatinine 1.77 H, Estimated GFR (MDRD) 29.00, BUN/ Creatinine Ratio 16.38, Glucose 417 H D, Calcium 8.2, Total Bilirubin 0.7, AST 14 L, ALT 11 L, Alkaline Phosphatase 61, Total Protein 8.8 H, Albumin 2.2 L, Globulin 6.6, Albumin/Globulin Ratio 0.33 09/24/17 07:50: WBC 21.81 H, RBC 3.65 L, Hgb 9.3 L, Hct 30.0 L, MCV 82.2, MCH 25.5 L, MCHC 31.0 L, RDW Coeff of Taylor 16.8 H, Plt Count 323, Immature Gran % ( Auto) 2.4, Neut % (Auto) 83.8, Lymph % (Auto) 11.0, [place] % (Auto) 2.7, Eos % ( Auto) 0.0, Baso % (Auto) 0.1, Immature Gran # (Auto) 0.5, Neut # 18.3 H, Lymph # 2.4, [place] # 0.6, Eos # 0.0, Baso # 0.0 ASSESSMENT: 1. Acute respiratory failure seems to be under control. 2. Pneumonia, bilateral bronchial, clinically improving. 3. Anemia - 2 units PRBCs given with no evidence of active GI bleed. 4. Atrial fib with acceptable rapid ventricular response. 5. Influenza B treated with Tamiflu. 6. Restless leg syndrome. PLAN: 1. Lantus 15 units b.i.d. 2. Ativan 1 mg at night to help with sleep 3. Xopenex q.6hr 4. Solu-Medrol 125 q.8 5. Digoxin level Plan and coordination of the patient's care discussed in the presence of Special Needs Librarian and nurse. CONDITION: Stable SCRIBED BY: Tatyana DURÁN scribed while in presence of service performed by Dr. Pickard/Lacey Gipson APRN on 09/25/17 ([id number])
[2017-09-25] MEDS: SOLU-MEDROL 125 MG IVP SCH ×2 (12:00→21:11)
[2017-09-25] MEDS ORDERED: VASOTEC IV IVP STA (15:05)
[2017-09-25] MEDS ORDERED: LASIX IVP STA (18:49)
[2017-09-25] MEDS ORDERED: MORPHINE 4 MG/ML VIAL IVP STA (18:49)
[2017-09-25] MEDS ORDERED: LANOXIN IVP STA (18:50)
[2017-09-25] MEDS ORDERED: LOVENOX SUBCUT STA (18:53)
[2017-09-25] MEDS ORDERED: LOVENOX ONE (19:10)
[2017-09-25] MEDS ORDERED: MORPHINE 2 MG/ML SYRINGE IVP PRN (19:30)
[2017-09-25] MEDS: ATIVAN PO SCH (21:07)
[2017-09-26] MEDS: XOPENEX 0.63 MG NEB SCH ×4 (04:38→22:39)
[2017-09-26] MEDS: SYNTHROID PO SCH ×2 (05:54→05:55)
[2017-09-26] MEDS: SOLU-MEDROL 125 MG IVP SCH ×3 (05:54→21:34)
[2017-09-26] MEDS: LASIX TAB PO SCH (05:54)
[2017-09-26] MEDS: TORADOL IVP SCH ×3 (05:54→21:34)
[2017-09-26] MEDS: HUMULIN R SUBCUT PRN ×4 (05:55→22:28)
[2017-09-26] MEDS ORDERED: LASIX IVP STA (08:25)
[2017-09-26] MEDS ORDERED: LOVENOX SUBCUT SCH ×2 (08:37→09:00)
--- NOTE | 2017-09-26 09:46 | PCM.PROG ---
Attending Provider: ATTENDING PROVIDER: Dr. PATRICIA PICKARD This patient is seen with Lacey Gipson, Nurse Practitioner. DATE OF SERVICE: 09/26/17 SUBJECTIVE: This 67 year old WHITE/ F was hospitalized 09/23/17. The patient is sitting in chair resting comfortably on Venti mask at 35%. REVIEW OF SYSTEMS: CONSTITUTIONAL: No night sweats. No fatigue, malaise, lethargy. No fever or chills. HEENT: Eyes: No visual changes. No eye pain. No eye discharge. ENT: No runny nose. No epistaxis. No sinus pain. No odynophagia. No congestion. RESPIRATORY: Positive for cough, congestion. Positive for shortness of breath. No hemoptysis. CARDIOVASCULAR: No angina symptoms. No CHF symptoms. No atypical chest pain for CAD. No palpitations. No orthopnea.. GASTROINTESTINAL: No abdominal pain. No nausea or vomiting. No diarrhea or constipation. No hematemesis. No hematochezia. GENITOURINARY: No urgency. No frequency. No dysuria. No hematuria. No obstructive symptoms. No discharge. No pain. No significant abnormal bleeding. MUSCULOSKELETAL: No musculoskeletal pain; no joint swelling. NEUROLOGICAL: Awake, alert, oriented to time, place and person. No headache. No neck pain. No syncope. No seizures. No dizziness. PSYCHIATRIC: Not anxious. No depression. No suicidal thoughts. No homicidal thoughts. SKIN: No rash. No lesions. No wounds. ENDOCRINE: No unexplained weight loss. No weight gain. HEMATOLOGIC/LYMPHATIC: No anemia. No purpura. No petechiae. No prolonged or excessive bleeding. No palpable lymph nodes. PHYSICAL EXAMINATION: GENERAL: The patient is awake, alert and oriented, sitting in chair in no distress. VITAL SIGNS: Temperature 97.3 F, Pulse 84, Respiratory Rate 22, BP 157/72, Pulse Ox 95% HEENT: Head normocephalic, atraumatic. Eyes: Extraocular muscles are intact. Pupils are equal, round and reactive to light and accommodation. Ears: No lesions. Nose appeared normal. Throat: No exudate or erythema. NECK: Supple. No JVD, no carotid bruit. No lymphadenopathy or thyromegaly. LUNGS: Diminished breath sounds bilaterally. Clear to auscultation. Percussion note normal. Chest symmetrical. HEART: Irregular heart rate. S1, S2, no S3. No murmurs. No cyanosis or clubbing. No ascites. Pulses: Dorsalis pedis and posterior tibial pulses +1 to +2 both sides. ABDOMEN: Soft. Non-tender. Bowel sounds active. No CVA tenderness. No mass felt. EXTREMITIES: No edema. Full range of motion of all extremities, equal. NEUROLOGIC: No focal deficit. Cranial nerves II through XII are grossly intact. No headache, no double vision or headache. SKIN: Not dry. Intact. Turgor-normal. LYMPHATIC: No palpable lymph nodes/no lymphedema. MUSCULOSKELETAL: Normal joints with no swelling. Muscle tone is normal. LAB REVIEW: 09/26/17 05:00 09/26/17 05:00 09/26/17 05:00: Sodium 136, Potassium 4.6, Chloride 107, Carbon Dioxide 21 L, Anion Gap 12.6, BUN 47 H, Creatinine 1.90 H, Estimated GFR (MDRD) 26.00, BUN/ Creatinine Ratio 24.73, Glucose 593 H* D, Calcium 8.7, Total Bilirubin 0.4, AST 9 L, ALT 14, Alkaline Phosphatase 65, Total Protein 8.4 H, Albumin 2.2 L, Globulin 6.2, Albumin/Globulin Ratio 0.35 09/26/17 05:00: WBC 11.79 H D, RBC 3.58 L, Hgb 9.2 L, Hct 29.7 L, MCV 83.0, MCH 25.7 L, MCHC 31.0 L, RDW Coeff of Taylor 17.6 H, Plt Count 315, Neutrophils % ( Manual) 87.0 H, Lymphocytes % (Manual) 9.0 L, Monocytes % (Manual) 4.0, Anisocytosis Not present 09/25/17 17:58: D-Dimer (Manual) 2175.59 09/25/17 17:54: Puncture Site Rb, O2 Saturation 97.0, ABG pH 7.367, ABG pCO2 33.3 L, ABG pO2 89.0, ABG HCO3 19.1 L, ABG Total CO2 20 L, ABG Base Excess -6 L , Scooby Test +, O2 Delivery Device Bnc, Oxygen Liter Flow 5.00, FiO2 % 40.0 ASSESSMENT: 1. Acute respiratory failure seems to be under control. 2. Pneumonia, bilateral bronchial, clinically improving. 3. Anemia - 2 units PRBCs given with no evidence of active GI bleed. 4. Atrial fib with acceptable rapid ventricular response. 5. Influenza B treated with Tamiflu. 6. Restless leg syndrome. PLAN: 1. Check previous echo to see when done 2. Wean off venti mask 3. Repeat chest x-ray 4. Lovenox 120 daily 5. Repeat chest x-ray Plan and coordination of the patient's care discussed in the presence of Coding Specialist and nurse. CONDITION: Stable SCRIBED BY: JOSE CARLOS ORTEGA Cheerleading Coach scribed while in presence of service performed by Dr. Pickard/Lacey Gipson APRN on 09/26/17 ([id number])
[2017-09-26] MEDS: LOVENOX SUBCUT SCH (10:05)
[2017-09-26] MEDS: LEVAQUIN 500 MG in PREMIX 100 ML D5W 1 BAG IV SCH (10:05)
[2017-09-26] MEDS: LANOXIN PO SCH (10:05)
[2017-09-26] MEDS: ZESTRIL PO SCH (10:06)
[2017-09-26] MEDS: CARDIZEM PO SCH ×2 (10:06→21:42)
[2017-09-26] MEDS: TAMIFLU PO SCH ×2 (10:06→21:43)
[2017-09-26] MEDS: REQUIP PO SCH (10:06)
[2017-09-26] MEDS: ASPIRIN EC PO SCH ×2 (10:06→16:54)
[2017-09-26] MEDS: LANTUS SUBCUT SCH ×2 (10:06→22:08)
[2017-09-26] MEDS: VANCOMYCIN 500 MG in SODIUM CHLORIDE 100 ML IV SCH ×2 (11:20→22:08)
--- NOTE | 2017-09-26 13:48 | DI ---
EXAM: CHEST FRONTAL VIEW HISTORY: Respiratory failure. COMPARISON: 09/02/2015 FINDINGS / IMPRESSION: Stable cardiomegaly. Limited image quality. There may be subtle vascular co ngestion. Mild hazy bibasilar density probably related to superimposed soft tissues. No well-define d lobar consolidation, visible pleural fluid or pneumothorax.
--- NOTE | 2017-09-26 14:03 | US ---
EXAM: Bilateral lower extremity venous doppler. HISTORY: Bilateral leg weakness, pain. COMPARISON: None available. TECHNIQUE: Multiple grayscale and color doppler images were obtained. FINDINGS: There is normal flow, compressibility and augmentation of flow within the right and left c ommon femoral, greater saphenous, profunda, femoral, popliteal, posterior tibial, anterior tibial and peroneal veins. IMPRESSION: No evidence for right or left lower extremity deep vein thrombosis at the levels examined.
[2017-09-26] MEDS: ATIVAN PO SCH (21:43)
[2017-09-27] MEDS: XOPENEX 0.63 MG NEB SCH (04:51)
[2017-09-27] MEDS: SOLU-MEDROL 125 MG IVP SCH ×3 (05:20→22:08)
[2017-09-27] MEDS: TORADOL IVP SCH ×3 (05:20→22:09)
[2017-09-27] MEDS: SYNTHROID PO SCH ×2 (05:58→06:18)
[2017-09-27] MEDS: LASIX TAB PO SCH (05:58)
[2017-09-27] MEDS: HUMULIN R SUBCUT PRN ×4 (05:59→22:08)
[2017-09-27] MEDS ORDERED: LASIX TAB PO STA (08:44)
[2017-09-27] MEDS ORDERED: CARDIZEM PO SCH (09:00)
[2017-09-27] MEDS ORDERED: ZESTRIL PO SCH ×2 (09:00→09:25)
[2017-09-27] MEDS: LANOXIN PO SCH (09:16)
[2017-09-27] MEDS: VANCOMYCIN 500 MG in SODIUM CHLORIDE 100 ML IV SCH ×2 (09:16→22:09)
[2017-09-27] MEDS: ASPIRIN EC PO SCH ×2 (09:17→17:19)
[2017-09-27] MEDS: CARDIZEM PO SCH ×2 (09:18→22:09)
[2017-09-27] MEDS: TAMIFLU PO SCH ×2 (09:18→22:09)
[2017-09-27] MEDS: LOVENOX SUBCUT SCH (09:18)
[2017-09-27] MEDS: LANTUS SUBCUT SCH ×2 (09:23→22:07)
[2017-09-27] MEDS: REQUIP PO SCH (09:34)
[2017-09-27] MEDS: LEVAQUIN 500 MG in PREMIX 100 ML D5W 1 BAG IV SCH (10:29)
[2017-09-27] MEDS: XOPENEX 1.25 MG NEB SCH ×3 (11:23→22:50)
[2017-09-27] MEDS: ZESTRIL PO SCH (22:09)
[2017-09-27] MEDS: ATIVAN PO SCH (22:09)
[2017-09-28] MEDS: XOPENEX 1.25 MG NEB SCH ×3 (04:46→17:23)
[2017-09-28] MEDS: TORADOL IVP SCH ×3 (06:39→22:23)
[2017-09-28] MEDS: HUMULIN R SUBCUT PRN ×3 (06:39→22:27)
[2017-09-28] MEDS: LASIX TAB PO SCH (06:40)
[2017-09-28] MEDS: SYNTHROID PO SCH ×2 (06:40)
[2017-09-28] MEDS ORDERED: ZESTRIL PO SCH (09:00)
[2017-09-28] MEDS: LEVAQUIN 500 MG in PREMIX 100 ML D5W 1 BAG IV SCH (09:48)
[2017-09-28] MEDS: LANTUS SUBCUT SCH ×2 (09:52→22:24)
[2017-09-28] MEDS: SOLU-MEDROL 125 MG IVP SCH ×2 (09:53→22:23)
[2017-09-28] MEDS: ZESTRIL PO SCH ×2 (09:55→22:23)
[2017-09-28] MEDS: ASPIRIN EC PO SCH ×2 (09:55→18:32)
[2017-09-28] MEDS: REQUIP PO SCH (09:55)
[2017-09-28] MEDS: TAMIFLU PO SCH ×2 (09:56→22:23)
[2017-09-28] MEDS: LANOXIN PO SCH (09:56)
[2017-09-28] MEDS: CARDIZEM PO SCH ×2 (09:56→22:23)
[2017-09-28] MEDS: LOVENOX SUBCUT SCH (09:57)
[2017-09-28] MEDS: VANCOMYCIN 500 MG in SODIUM CHLORIDE 100 ML IV SCH ×2 (11:17→22:29)
[2017-09-28] MEDS ORDERED: HUMULIN R SUBCUT STA (12:31)
[2017-09-28] MEDS: ATIVAN PO SCH (22:23)
[2017-09-29] MEDS: XOPENEX 1.25 MG NEB SCH ×5 (00:16→23:04)
[2017-09-29] MEDS: SYNTHROID PO SCH ×2 (07:47)
[2017-09-29] MEDS: TORADOL IVP SCH ×3 (07:47→21:07)
[2017-09-29] MEDS: LASIX TAB PO SCH (07:47)
[2017-09-29] MEDS: HUMULIN R SUBCUT PRN ×4 (07:55→21:21)
[2017-09-29] MEDS: CARDIZEM PO SCH ×3 (09:37→21:08)
[2017-09-29] MEDS: LANOXIN PO SCH (09:37)
[2017-09-29] MEDS: ASPIRIN EC PO SCH ×2 (09:37→17:42)
[2017-09-29] MEDS: LANTUS SUBCUT SCH ×2 (09:38→21:09)
[2017-09-29] MEDS: LEVAQUIN 500 MG in PREMIX 100 ML D5W 1 BAG IV SCH (09:39)
[2017-09-29] MEDS: SOLU-MEDROL 125 MG IVP SCH ×2 (09:41→21:09)
[2017-09-29] MEDS: TAMIFLU PO SCH ×2 (09:43→21:08)
[2017-09-29] MEDS: REQUIP PO SCH (09:43)
[2017-09-29] MEDS: ZESTRIL PO SCH ×2 (09:44→21:07)
[2017-09-29] MEDS: LOVENOX SUBCUT SCH (09:44)
[2017-09-29] MEDS ORDERED: CARDIZEM PO SCH ×2 (10:37→11:00)
--- NOTE | 2017-09-29 11:23 | CT ---
EXAM: CT brain without contrast HISTORY: Change in level of consciousness TECHNIQUE: Multi-slice sequential. Coronal and sagittal reformations were performed. COMPARISON: None FINDINGS: There is no acute intracranial hemorrhage, extraxial fluid collection, mass affect, or midlineshift. There is mild to moderate diffuse sulcal prominence. Ventricular prominence is consistent with the d egree of parenchymal volume loss. Periventricular white matter hypodensity is seen. There is a part ially empty sella. The basal cisterns are patent. No large vascular territory area of hypodensity i s seen within the brain. The calvarium is unremarkable. Mild mucosal thickening in the bilateral eth moid sinuses is present. Mastoid air cells are clear. IMPRESSION: 1. No acute intracranial findings. 2. Chronic findings of mild to moderate parenchymal volume loss and small vessel ischemic disease. 3. Mild bilateral ethmoid sinus disease.
[2017-09-29] MEDS: VANCOMYCIN 500 MG in SODIUM CHLORIDE 100 ML IV SCH ×2 (13:40→21:07)
[2017-09-29] MEDS: MINOXIDIL PO SCH ×2 (13:40→21:08)
[2017-09-29] MEDS: K-DUR PO SCH (17:42)
[2017-09-29] MEDS: ATIVAN PO SCH (21:08)
[2017-09-29] MEDS: ZOFRAN 4 MG/2 ML IVP PRN (21:21)
[2017-09-30] MEDS: XOPENEX 1.25 MG NEB SCH ×4 (03:58→23:22)
[2017-09-30] MEDS: TORADOL IVP SCH ×3 (06:16→22:13)
[2017-09-30] MEDS: HUMULIN R SUBCUT PRN ×4 (06:16→22:14)
[2017-09-30] MEDS: ZOFRAN 4 MG/2 ML IVP PRN (06:16)
[2017-09-30] MEDS: LASIX TAB PO SCH (06:17)
[2017-09-30] MEDS: SYNTHROID PO SCH ×2 (06:17)
[2017-09-30] MEDS: LOVENOX SUBCUT SCH (09:22)
[2017-09-30] MEDS: LANTUS SUBCUT SCH ×2 (09:23→22:14)
[2017-09-30] MEDS: MINOXIDIL PO SCH ×2 (09:24→22:19)
[2017-09-30] MEDS: REQUIP PO SCH (09:24)
[2017-09-30] MEDS: K-DUR PO SCH ×2 (09:24→17:01)
[2017-09-30] MEDS: TAMIFLU PO SCH ×2 (09:24→22:19)
[2017-09-30] MEDS: CARDIZEM PO SCH ×2 (09:24→22:18)
[2017-09-30] MEDS: LANOXIN PO SCH (09:25)
[2017-09-30] MEDS: ASPIRIN EC PO SCH ×2 (09:25→17:01)
[2017-09-30] MEDS: LEVAQUIN 500 MG in PREMIX 100 ML D5W 1 BAG IV SCH (09:31)
[2017-09-30] MEDS: ZESTRIL PO SCH ×2 (09:33→22:19)
[2017-09-30] MEDS: SOLU-MEDROL 125 MG IVP SCH ×2 (09:50→22:13)
[2017-09-30] MEDS: VANCOMYCIN 500 MG in SODIUM CHLORIDE 100 ML IV SCH ×2 (10:55→22:21)
[2017-09-30] MEDS: ATIVAN PO SCH (22:18)
[2017-10-01] MEDS: XOPENEX 1.25 MG NEB SCH ×2 (03:50→11:16)
[2017-10-01] MEDS: TORADOL IVP SCH ×2 (06:01→12:12)
[2017-10-01] MEDS: LASIX TAB PO SCH (06:02)
[2017-10-01] MEDS: SYNTHROID PO SCH ×2 (06:02)
[2017-10-01] MEDS: HUMULIN R SUBCUT PRN ×2 (06:02→12:09)
[2017-10-01] MEDS: VANCOMYCIN 500 MG in SODIUM CHLORIDE 100 ML IV SCH (09:02)
[2017-10-01] MEDS: LANTUS SUBCUT SCH (09:03)
[2017-10-01] MEDS: K-DUR PO SCH (09:03)
[2017-10-01] MEDS: REQUIP PO SCH (09:04)
[2017-10-01] MEDS: MINOXIDIL PO SCH (09:05)
[2017-10-01] MEDS: ZESTRIL PO SCH (09:05)
[2017-10-01] MEDS: LANOXIN PO SCH (09:05)
[2017-10-01] MEDS: ASPIRIN EC PO SCH (09:05)
[2017-10-01] MEDS: CARDIZEM PO SCH (09:05)
[2017-10-01] MEDS: LOVENOX SUBCUT SCH (09:06)
[2017-10-01] MEDS: TAMIFLU PO SCH (09:07)
[2017-10-01] MEDS: LEVAQUIN 500 MG in PREMIX 100 ML D5W 1 BAG IV SCH (10:14)
[2017-10-01 10:51] VITALS: BP 122/51; TEMP 96.4
--- NOTE | 2017-10-01 11:16 | PN ---
DATE OF SERVICE: 09/30/17 SUBJECTIVE: The patient was hospitalized with respiratory failure. The patient's condition has slowly improved. She is laying in an easy chair stretched out in no distress. REVIEW OF SYSTEMS: CONSTITUTIONAL: No night sweats. No fatigue, malaise, lethargy. No fever or chills. HEENT: Eyes: No visual changes. No eye pain. No eye discharge. ENT: No runny nose. No epistaxis. No sinus pain. No sore throat. No odynophagia. No congestion. RESPIRATORY: No cough, no congestion. No hemoptysis. No shortness of breath. CARDIOVASCULAR: No angina symptoms. No CHF symptoms. No atypical chest pain for CAD. No palpitations. No orthopnea. GASTROINTESTINAL: No abdominal pain. No nausea or vomiting. No diarrhea or constipation. No hematemesis. No hematochezia. GENITOURINARY: No urgency. No frequency. No dysuria. No hematuria. No obstructive symptoms. No discharge. No pain. No significant abnormal bleeding. MUSCULOSKELETAL: No musculoskeletal pain; no joint swelling. NEUROLOGICAL: No headache. No neck pain. No syncope. No seizures. No dizziness. PSYCHIATRIC: Not anxious. No depression. No suicidal thoughts. No homicidal thoughts. SKIN: No rash. No lesions. No wounds. ENDOCRINE: No unexplained weight loss. No weight gain. HEMATOLOGIC/LYMPHATIC: No anemia. No purpura. No petechiae. No prolonged or excessive bleeding. No palpable lymph nodes. PHYSICAL EXAMINATION: VITAL SIGNS: Temperature 98, pulse 85, respiratory rate 15, blood pressure 130/ 80. HEENT: Head normocephalic, atraumatic. Eyes: Extraocular muscles are intact. Pupils are equal, round and reactive to light and accommodation. Ears: No lesions. Nose appeared normal. Throat: No exudate or erythema. NECK: Supple. No JVD, no carotid bruit. No lymphadenopathy or thyromegaly. LUNGS: Decreased breath sounds but clear to auscultation. The patient had a few crepitation at the bases. Percussion note normal. Chest symmetrical. HEART: S1, S2, no S3. No murmurs. No cyanosis or clubbing. No ascites. Pulses: Dorsalis pedis and posterior tibial pulses +1 to +2 both sides. ABDOMEN: Soft. Nontender. Bowel sounds active. No CVA tenderness. No mass felt. EXTREMITIES: No edema. Full range of motion of all extremities, equal. NEUROLOGIC: No focal deficit. Cranial nerves II through XII are grossly intact. No headache, no double vision or headache. SKIN: Not dry. Intact. Turgor - normal. LYMPHATIC: No palpable lymph nodes/no lymphedema. MUSCULOSKELETAL: Normal joints with no swelling. Muscle tone is normal. ASSESSMENT: 1. Respiratory failure, seems to be under control with evidence of hypoxemia 2. Atrial fibrillation with normal ventricular response 3. Blood pressure is fairly well controlled 4. Chronic lung disease is stable 5. Obese and advised to lose weight. PLAN: 1. Advised pulmonary rehab and cardiac rehab with evidence of CHF. 2. She may need another echo. CONDITION: Stable TIME SPENT: More than 30 minutes. Plan and coordination of the patient's care discussed in the presence of nurse. LICO
--- NOTE | 2017-10-01 11:22 | PN ---
DATE OF SERVICE: 09/29/17 SUBJECTIVE: The patient examined while sitting in her chair. She was sleeping, resting comfortably. Shortness of breath and breathing have both improved. Her kidney function is steadily improving. She is still having some bouts of confusion here in the hospital and elevated blood pressures. REVIEW OF SYSTEMS: CONSTITUTIONAL: Weakness. No night sweats. No fever or chills. HEENT: Eyes: No visual changes. No eye pain. No eye discharge. ENT: No runny nose. No epistaxis. No sinus pain. No sore throat. No odynophagia. No congestion. RESPIRATORY: Positive for cough. No hemoptysis. No shortness of breath. CARDIOVASCULAR: No angina symptoms. No CHF symptoms. No atypical chest pain for CAD. No palpitations. No orthopnea. GASTROINTESTINAL: No abdominal pain. No nausea or vomiting. No diarrhea or constipation. No hematemesis. No hematochezia. GENITOURINARY: No urgency. No frequency. No dysuria. No hematuria. No obstructive symptoms. No discharge. No pain. No significant abnormal bleeding. MUSCULOSKELETAL: No musculoskeletal pain; no joint swelling. NEUROLOGICAL: Bouts of confusion. No headache. No neck pain. No syncope. No seizures. No dizziness. PSYCHIATRIC: Not anxious. No depression. No suicidal thoughts. No homicidal thoughts. SKIN: No rash. No lesions. No wounds. ENDOCRINE: No unexplained weight loss. No weight gain. HEMATOLOGIC/LYMPHATIC: No anemia. No purpura. No petechiae. No prolonged or excessive bleeding. No palpable lymph nodes. PHYSICAL EXAMINATION: VITAL SIGNS: Temperature 97.6, pulse 89, respiratory rate 20, BP 165/102. HEENT: Head normocephalic, atraumatic. Eyes: Extraocular muscles are intact. Pupils are equal, round and reactive to light and accommodation. Ears: No lesions. Nose appeared normal. Throat: No exudate or erythema. NECK: Supple. No JVD, no carotid bruit. No lymphadenopathy or thyromegaly. LUNGS: Diminished breath sounds bilaterally. Clear to auscultation. Percussion note normal. Chest symmetrical. HEART: S1, S2, no S3. No murmurs. No cyanosis or clubbing. No ascites. Pulses: Dorsalis pedis and posterior tibial pulses +1 to +2 both sides. ABDOMEN: Soft. Nontender. Bowel sounds active. No CVA tenderness. No mass felt. EXTREMITIES: No edema. Full range of motion of all extremities, equal. NEUROLOGIC: Alert and oriented to person however not place or time. No focal deficit. Cranial nerves II through XII are grossly intact. No headache, no double vision or headache. SKIN: Not dry. Intact. Turgor - normal. LYMPHATIC: No palpable lymph nodes/no lymphedema. MUSCULOSKELETAL: Normal joints with no swelling. Muscle tone is normal. LABS: Hemoglobin 9.9, hematocrit 30.9, white count 10.96. Sodium 133, potassium 3.3, BUN 53, creatinine 1.58. Sugar 473. ABGs this morning on room air, p02 54 with 02 sat of 89. She generally uses oxygen 2L at home. ASSESSMENT: 1. ACUTE RESPIRATORY FAILURE, WHICH HAS RESOLVED 2. PNEUMONIA, WHICH IS IMPROVING 3. INFLUENZA A WHICH IS IMPROVING 4. COPD 5. CONFUSION LIKELY RELATED TO HYPOXEMIA 6. HYPERTENSION 7. HYPOKALEMIA 8. ACUTE RENAL FAILURE WHICH IS IMPROVING PLAN: 1. Continue slow IV fluids; kidney function is steadily improving each day 2. Potassium 3.3 today 3. Will start potassium 40 mEq b.i.d. 4. Blood pressure is elevated, will increase Cardizem to 90 mg b.i.d. and start Minoxidil 2.[address] of the brain without contrast today TIME SPENT: More than 30 minutes. Plan and coordination of the patient's care discussed in the presence of nurse. LICO
[2017-10-01] MEDS: SOLU-MEDROL 125 MG IVP SCH (12:02)
--- NOTE | 2017-10-01 13:32 | PN ---
DATE OF SERVICE: 09/29/17 SUBJECTIVE: The patient was hospitalized with respiratory failure with bilateral pneumonia and increased ventricular rate with atrial fibrillation. The patient has CHF with fluid overload which was successful treated. The patient seems to be somewhat forgetful at times. She has been on Lovenox, antibiotics, steroids, Lasix. Her condition it otherwise stable. We will do CT scan. CONDITION: Stable The patient was seen and examined with the Nurse Practitioner. TIME SPENT: More than 30 minutes. Plan and coordination of the patient's care discussed in the presence of nurse. LICO
--- NOTE | 2017-10-01 15:18 | PN ---
DATE OF SERVICE: 09/27/17 SUBJECTIVE: The patient was seen and examined with the Nurse Practitioner. The patient's Cardizem dose has been increased to 60mg twice a day, Zestril increased to 20mg twice a day, Lantus 3mg twice a day with sliding scale. Will monitor blood sugar. Kidney functions are improving. TIME SPENT: More than 30 minutes. Plan and coordination of the patient's care discussed in the presence of nurse. WALLYD
--- NOTE | 2017-10-02 08:41 | PN ---
DATE OF SERVICE: 09/28/17 SUBJECTIVE: 67 year old white female hospitalized with shortness of breath and acute respiratory failure. The patient also has pneumonia and atrial fibrillation with increased ventricular rate. The patient has been put on Lovenox 120mg SUBCUT daily along with Lanoxin off and on. Lanoxin level has been monitored. Her rate is now 90-100 per minute. The patient is feeling a lot better. Her oxygen saturation is 95% with 2 liters. She is feeling somewhat better. REVIEW OF SYSTEMS: CONSTITUTIONAL: No night sweats. No fatigue, malaise, lethargy. No fever or chills. HEENT: Eyes: No visual changes. No eye pain. No eye discharge. ENT: No runny nose. No epistaxis. No sinus pain. No sore throat. No odynophagia. No congestion. RESPIRATORY: No cough, no congestion. No hemoptysis. No shortness of breath. CARDIOVASCULAR: No angina symptoms. No CHF symptoms. No atypical chest pain for CAD. No palpitations. No orthopnea. GASTROINTESTINAL: No abdominal pain. No nausea or vomiting. No diarrhea or constipation. No hematemesis. No hematochezia. Appetite has improved. GENITOURINARY: No urgency. No frequency. No dysuria. No hematuria. No obstructive symptoms. No discharge. No pain. No significant abnormal bleeding. MUSCULOSKELETAL: No musculoskeletal pain; no joint swelling. NEUROLOGICAL: No headache. No neck pain. No syncope. No seizures. No dizziness. PSYCHIATRIC: Not anxious. No depression. No suicidal thoughts. No homicidal thoughts. SKIN: No rash. No lesions. No wounds. ENDOCRINE: No unexplained weight loss. No weight gain. HEMATOLOGIC/LYMPHATIC: No anemia. No purpura. No petechiae. No prolonged or excessive bleeding. No palpable lymph nodes. PHYSICAL EXAMINATION: GENERAL: The patient is oriented to time, place and person. HEENT: Head normocephalic, atraumatic. Eyes: Extraocular muscles are intact. Pupils are equal, round and reactive to light and accommodation. Ears: No lesions. Nose appeared normal. Throat: No exudate or erythema. NECK: Supple. No JVD, no carotid bruit. No lymphadenopathy or thyromegaly. LUNGS: Clear to auscultation. Percussion note normal. Chest symmetrical. HEART: S1, S2, no S3. Irregular. No murmurs. No cyanosis or clubbing. No ascites. Pulses: Dorsalis pedis and posterior tibial pulses +1 to +2 both sides. ABDOMEN: Soft. Nontender. Bowel sounds active. No CVA tenderness. No mass felt. EXTREMITIES: No edema. Full range of motion of all extremities, equal. NEUROLOGIC: No focal deficit. Cranial nerves II through XII are grossly intact. No headache, no double vision or headache. SKIN: Not dry. Intact. Turgor - normal. LYMPHATIC: No palpable lymph nodes/no lymphedema. MUSCULOSKELETAL: Normal joints with no swelling. Muscle tone is normal. LABS: creatinine 1.7, BUN 61, sugar 546, hgb 9.5, hct 29. ASSESSMENT: 1. Pneumonia seems to be resolving 2. CHF, resolved 3. Atrial fibrillation under control 4. Renal azotemia seems to be stable and improving very slowly PLAN: 1. Blood sugar is high, more than 500. Will increase the Lantus 40mg twice a day and change the sliding scale with more insulin when the sugar goes more than 500 to 600. 2. Will do BNP 3. Daily CBC and CMP 4. T4, TSH and ABG on room air in the morning. 5. Advised to be up and about. She goes to the bathroom at home on her own. CONDITION: Stable PROGNOSIS: Guarded. TIME SPENT: More than 30 minutes. Plan and coordination of the patient's care discussed in the presence of nurse. LICO
--- NOTE | 2017-10-02 08:45 | PN ---
DATE OF SERVICE: 09/27/17 SUBJECTIVE: The patient was seen with the Nurse Practitioner. PHYSICAL EXAMINATION: HEENT: Head normocephalic, atraumatic. Eyes: Extraocular muscles are intact. Pupils are equal, round and reactive to light and accommodation. Ears: No lesions. Nose appeared normal. Throat: No exudate or erythema. NECK: Supple. No JVD, no carotid bruit. No lymphadenopathy or thyromegaly. LUNGS: Decreased breath sounds with few dry creps at the bases. Percussion note normal. Chest symmetrical. HEART: S1, S2, no S3. Irregular. No murmurs. No cyanosis or clubbing. No ascites. Pulses: Dorsalis pedis and posterior tibial pulses +1 to +2 both sides. ABDOMEN: Soft. Nontender. Bowel sounds active. No CVA tenderness. No mass felt. EXTREMITIES: No edema. Full range of motion of all extremities, equal. NEUROLOGIC: No focal deficit. Cranial nerves II through XII are grossly intact. No headache, no double vision or headache. SKIN: Not dry. Intact. Turgor - normal. LYMPHATIC: No palpable lymph nodes/no lymphedema. MUSCULOSKELETAL: Normal joints with no swelling. Muscle tone is normal. PLAN: 1. We will probably do echocardiogram because the patient's condition has changed. She is extremely short of breath at times with minimal exertion but at rest her condition has improved remarkably. 2. The patient's renal azotemia and the patient was taken off IV fluids because she went into overload. CONDITION: Stabilizing. TIME SPENT: More than 30 minutes. Plan and coordination of the patient's care discussed in the presence of nurse. LICO
--- NOTE | 2017-10-04 13:32 | ECHO2D ---
Date of Exam: 10/01/17 Ordering Physician: PATRICIA PICKARD Room #: SCU3 Reason for Echo: RESPIRATORY FAILURE, PNEUMONIA, A-FIB, SOB, CHF M-Mode Normal Adult Results LV Dimensions Normal Adult Results AoV Opening excursions >1.6 >1.6 LVEDD-base- 3.5-5.8 5.1 Ao root dimensions 2.0-3.7 3.5 LVESD-base- 3.1-4.6 L. Atrium dimensions 1.9-3.8 5.9 Post. Wall thickness 0.8-1.1 1.3 IV septum (thickness) 0.7-1.2 1.3 Post. Wall excursion 0.72-1.3 NORMAL Septal motion 0.6 Systolic motion R. Ventricular cavity 1.5-2.0 NORMAL LVEF 60% 60% Paradoxical septal wall motion NORMAL 2-D : MITRAL VALVE PROLAPSE LEFT PARASTERNAL LONG AXIS AND APICAL FOUR CHAMBER VIEW--NORMAL LEFT VENTRICULAR CONTRACTILITY--NORMAL VALVES--NO EFFUSION, NO THROMBUS, ENLARGED LEFT ATRIAL CAVITY M-MODE: MV: NORMAL AV: NORMAL TV: NORMAL PV: CHAMBER SIZE: ENLARGED LEFT ATRIAL CAVITY WALL MOTION: NORMAL PERICARDIUM: NORMAL INTERPRETATION: 1. LEFT VENTRICULAR HYPERTROPHY WITH ENLARGED LEFT ATRIAL CAVITY 2. NORMAL LEFT VENTRICULAR CAVITY SIZE 3. NORMAL VALVES 4. NORMAL LEFT VENTRICULAR EJECTION FRACTION 5. MITRAL VALVE PROLAPSE MTDD
--- NOTE | 2017-10-17 14:57 | HP ---
DATE OF SERVICE: 09/23/17 REASON FOR HOSPITALIZATION: Respiratory failure, pneumonia, influenza HISTORY OF PRESENT ILLNESS: This 66-year-old white female came in with complaint of being short of breath, cough, congestion, fatigue and tired feeling. The patient had Influenza A positive along with evidence of pneumonia and respiratory failure. Duration of symptoms 2 to 3 days but in fact it started probably 7 days prior to hospitalization. The patient's oxygen saturation was 89% on room air. She was in atrial fibrillation with rapid ventricular response. Her other problem is anemia with hemoglobin of 8.3, hematocrit of 27. Blood sugar was noted to be 260. PAST MEDICAL HISTORY: Chronic kidney disease Obesity Diabetes mellitus Type 2 Congestive heart failure Dilated cardiomyopathy Chronic lung disease (restrictive) Hypertension Dyslipidemia Hypothyroidism Atrial fibrillation (DIG level 0.41 on 09/23/17) Generalized arthritis Graves Disease History of kidney stones PAST SURGICAL HISTORY: Tubal ligation Kidney stent placement 11/13 REVIEW OF SYSTEMS: CONSTITUTIONAL: Fatigue and tired feeling. No night sweats. No fever or chills. HEENT: Eyes: No visual changes. No eye pain. No eye discharge. ENT: No runny nose. No epistaxis. No sinus pain. No sore throat. No odynophagia. No ear pain. No congestion. RESPIRATORY: Cough and congestion. No hemoptysis. Shortness of breath with minimal exertion. CARDIOVASCULAR: No angina symptoms. No CHF symptoms. No atypical chest pain for CAD. No palpitations. No orthopnea. GASTROINTESTINAL: No abdominal pain. No nausea or vomiting. No diarrhea or constipation. No hematemesis. No hematochezia. GENITOURINARY: No urgency. No frequency. No dysuria. No hematuria. No obstructive symptoms. No discharge. No pain. No significant abnormal bleeding. MUSCULOSKELETAL: Generalized aches and pains with moderate to severe back pain. NEUROLOGICAL: No headache. No neck pain. No syncope. No seizures. No dizziness. PSYCHIATRIC: Not anxious. No depression. No suicidal thoughts. No homicidal thoughts. SKIN: No rash. No lesions. No wounds. ENDOCRINE: No unexplained weight loss. No weight gain. HEMATOLOGIC/LYMPHATIC: No anemia. No purpura. No petechiae. No prolonged or excessive bleeding. No palpable lymph nodes. PERSONAL/FAMILY/SOCIAL HISTORY: No illicit drug use. No alcohol use. Nonsmoker. , lives by herself, being taken care of by her sister, who is also power of senior attorney for health. She is able to do all activities of daily living. MEDICATIONS: Albuterol ProAir HFA two puffs twice a day Synthroid 175 p.o. daily Aspirin one a day Lanoxin 125 mcg p.o. daily Cardizem 45 mg q.12 Flonase one spray Lasix 20 mg p.o. daily [place] 7.5/325 mg q.6 Restoril 5 mg p.o. daily Metformin 500 mg p.o. daily b.i.d. ALLERGIES: MACROLIDE ANTIBIOTICS, CLARITHROMYCIN (FROM [facility]), AZITHROMYCIN, AMOXICILLIN, TELITHROMYCIN (FROM KETEK) PHYSICAL EXAMINATION: GENERAL: The patient is oriented to time, place and person. VITAL SIGNS: Temperature 97.6, pulse 103 regular, respiratory rate 20, BP 130/ 88, pulse ox 89% on room air. Looks pale. HEENT: Head normocephalic, atraumatic. Eyes: Extraocular muscles are intact. Pupils are equal, round and reactive to light and accommodation. Ears: No lesions. Nose appeared normal. Throat: No exudate or erythema. Mucous membranes dry. NECK: Supple. No JVD, no carotid bruit. No lymphadenopathy or thyromegaly. LUNGS: Clear to auscultation. Percussion note normal. Chest symmetrical. HEART: Irregularly irregular rate 110 to 20 per minute. S1, S2, no S3. No murmurs. No cyanosis or clubbing. No ascites. Pulses: Dorsalis pedis and posterior tibial pulses +1 to +2 both sides. ABDOMEN: Soft. Nontender. Bowel sounds active. No CVA tenderness. No mass felt. EXTREMITIES: +1 bilateral pitting edema. Full range of motion of all extremities, equal. NEUROLOGIC: Normal with normal mental status with normal reflexes. No focal deficit. Cranial nerves II through XII are grossly intact. No headache, no double vision or headache. SKIN: Dry. Intact. Turgor - poor. . LYMPHATIC: No palpable lymph nodes/no lymphedema. MUSCULOSKELETAL: Normal joints with no swelling. Muscle tone is normal. LABS: Hemoglobin 8.3, hematocrit 27, WBC 12,000, creatinine 1.6, BUN 28, potassium 4.6 , BNP 124, glucose 260. EKG - atrial fib with rapid ventricular response. No acute changes. ASSESSMENT: 1. ACUTE RESPIRATORY FAILURE 2. PNEUMONIA, BILATERAL 3. INFLUENZA A 4. SEVERE ANEMIA SYMPTOMATIC 5. THE PATIENT HAS BEEN IN ATRIAL FIB WITH RAPID VENTRICULAR RESPONSE, SHORTNESS OF BREATH AND ALSO PNEUMONIA. 6. CHRONIC KIDNEY DISEASE 7. DIABETES MELLITUS 8. MORBID OBESITY 9. HYPERTENSION 10. HYPOTHYROIDISM PLAN: 1. Admit the patient. Couldn't find a Special Care bed so the patient will be on the floor with telemetry. 2. Daily CBC and CMP. 3. Type and crossmatch as soon as possible and 2 units of PRBCs for symptomatic anemia. The patient has atrial fib with rapid ventricular response and pneumonia with shortness of breath. 4. Vancomycin 500 mg q.12. 5. Levofloxacin 500 mg IV daily 6. Methylprednisone 40 q.12 7. Continue Synthroid, Zestril 8. Tamiflu 75 twice a day 9. Xopenex q.6 10. Lovenox 30 mg subcut 11. The patient again discussed about atrial fib and need for Walt blood thinners and Coumadin - she declined. The patient has been on Aspirin 81 mg twice a day and may have to discontinue because of the patient's severe anemia. The patient has no evidence of active GI bleed. 12. Toradol 30 mg IV 13. Tenormin q.8 because of severe back pain 14. 125 Solu-Cortef IV now extra dose 15. Monitor arterial blood gases 16. Monitor oximetry CONDITION: Critical but stable TIME SPENT: More than 70 minutes. MTDD
--- NOTE | 2017-10-20 12:25 | PN ---
DATE OF SERVICE: 10/01/17 SUBJECTIVE: 67-year-old white female hospitalized with respiratory failure, pneumonia and influenza. The patient has improved. She is feeling better. Oxygen saturation 90 % on room air. She is still weak, usually nephew helps her a lot. She wants to go back home. REVIEW OF SYSTEMS: (All negative at rest except for weakness) CONSTITUTIONAL: Weakness. No night sweats. No malaise, lethargy. No fever or chills. HEENT: Eyes: No visual changes. No eye pain. No eye discharge. ENT: No runny nose. No epistaxis. No sinus pain. No sore throat. No odynophagia. No congestion. RESPIRATORY: No cough, no congestion. No hemoptysis. No shortness of breath. CARDIOVASCULAR: No angina symptoms. No CHF symptoms. No atypical chest pain for CAD. No palpitations. No orthopnea. GASTROINTESTINAL: No abdominal pain. No nausea or vomiting. No diarrhea or constipation. No hematemesis. No hematochezia. GENITOURINARY: No urgency. No frequency. No dysuria. No hematuria. No obstructive symptoms. No discharge. No pain. No significant abnormal bleeding. MUSCULOSKELETAL: No musculoskeletal pain; no joint swelling. NEUROLOGICAL: No headache. No neck pain. No syncope. No seizures. No dizziness. PSYCHIATRIC: Not anxious. No depression. No suicidal thoughts. No homicidal thoughts. SKIN: No rash. No lesions. No wounds. ENDOCRINE: No unexplained weight loss. No weight gain. HEMATOLOGIC/LYMPHATIC: No anemia. No purpura. No petechiae. No prolonged or excessive bleeding. No palpable lymph nodes. PHYSICAL EXAMINATION: GENERAL: The patient is oriented to time, place and person. VITAL SIGNS: Temperature 97.6, pulse 72, respiratory rate 20, BP 110/60, pulse ox 95% on 2L. HEENT: Head normocephalic, atraumatic. Eyes: Extraocular muscles are intact. Pupils are equal, round and reactive to light and accommodation. Ears: No lesions. Nose appeared normal. Throat: No exudate or erythema. NECK: Supple. No JVD, no carotid bruit. No lymphadenopathy or thyromegaly. LUNGS: Decreased breath sounds with mild wheeze which is expiratory, very few dry creps. Good air entry. Percussion note normal. Chest symmetrical. HEART: S1, S2, no S3. No murmurs. No cyanosis or clubbing. No ascites. Pulses: Dorsalis pedis and posterior tibial pulses +1 to +2 both sides. ABDOMEN: Soft. Nontender. Bowel sounds active. No CVA tenderness. No mass felt. EXTREMITIES: No edema. Full range of motion of all extremities, equal. NEUROLOGIC: No focal deficit. Cranial nerves II through XII are grossly intact. No headache, no double vision or headache. SKIN: Not dry. Intact. Turgor - normal. LYMPHATIC: No palpable lymph nodes/no lymphedema. MUSCULOSKELETAL: Normal joints with no swelling. Muscle tone is normal. ASSESSMENT: 1. RESPIRATORY FAILURE SEEMS TO HAVE RESOLVED. 2. ATRIAL FIBRILLATION WITH RATE OF 80/MIN. 3. CHF HAS RESOLVED. 4. INFLUENZA HAS RESOLVED. PLAN: 1. Will discharge the patient home. 2. Atrial fibrillation with ventricular rate of 80/min. The patient has declined any Walt blood thinners and Coumadin. She wants to be on aspirin. She was given 2 units of packed red cells during this hospitalization. She does not want EGD or colonoscopy. There is no evidence of active GI bleed. Hemoglobin and hematocrit have stayed stable. Kidney functions are abnormal 1.7 and 74 from aggressive diuretic therapy. Her estimated GFR has hovered around 30 cc/min. Will monitor that. She is advised to have liquids and her normal regular food three times a day as usual. She will be on home oxygen as usual. Prednisone, Levaquin. Also is going to have Home Health Care to monitor her oximetry, lung functions, congestive heart failure, her medications. CONDITION: Stable PROGNOSIS: Not good considering patient's noncompliance, inactivity, sedentary lifestyle and BMI which is more than 35. TIME SPENT: More than 30 minutes. Plan and coordination of the patient's care discussed in the presence of nurse. LICO
--- NOTE | 2017-10-20 13:25 | DS ---
DATE OF SERVICE: 10/01/17 FINAL DIAGNOSIS: 1. ACUTE RESPIATORY FAILURE 2. INFLUENZA WITH BRONCHITIS 3. RENAL FAILURE 4. CONGESTIVE HEART FAILURE WITH FLUID OVERLOAD 5. ATRIAL FIBRILLATION WITH RAPID VENTRICULAR RESPONSE 6. ANEMIA REQUIRING BLOOD TRANSFUSION 7. UNCONTROLLED DIABETES FROM INACTIVITY, NONCOMPLIANCE OF DIET AND STEROIDS 8. HYPERTENSION 9. DYSLIPIDEMIA 10. COPD 11. OBESITY WITH BMI MORE THAN 35 12. CHRONIC KIDNEY DISEASE 13. NONCOMPLIANCE DISCHARGE INSTRUCTIONS: 1. Followup appointment with Dr. Hollins in his office on 10/08/17 at 2 p.m. 2. Home Health Care to follow the patient for blood pressure monitoring, congestive heart failure monitoring, diet, medications, oximetry. 3. It is to be noted that the patient does not want any blood thinner except for coated aspirin, Baby Aspirin 81 mg. She does not want Walt blood thinners like Pradaxa, Xarelto, Eliquis or Coumadin. 4. Anemia - she was needing 2 units of packed red cells and was afraid of bleeding out. 5. Also she declined colonoscopy, EGD or any anemia workup for now. MEDICATIONS AT DISCHARGE: ProAir two puff IH q.4h Synthroid 175 mcg p.o. daily 81 mg Aspirin p.o. b.i.d. [place] 7.5-325 mg one tablet p.o. q.6h p.r.n. Lanoxin 125 mcg p.o. daily Lasix 20 mg p.o. daily Flonase one spray LAYLA daily Home oxygen 2L which she already has MEDICATION CHANGES: Diltiazem (Cardizem) has been increased to 90 mg twice daily Lisinopril (Zestril) has been increased to 20 mg twice daily Metformin (Glucophage) until instructed by Dr. Hollins NEW PRESCRIPTIONS: Prednisone 10 mg take two tabs (20 mg) daily for 5 days, then take one tab (10 mg) daily for 5 days Levaquin 250 mg one p.o. daily for 5 days Minoxidil 2.5 mg take one tablet p.o. daily K-Dur 20 mEq one p.o. daily Ropinirole (Requip) 0.5 mg one tablet p.o. daily Lantus 40 units, administer subcutaneously twice daily DIET INSTRUCTIONS: As the patient tolerates. ACTIVITY: As the patient tolerates. SMOKING: N/A DISEASE SPECIFIC EDUCATION: Medications Followup Home Health Care Complications of atrial fibrillation discussed Anemia HOSPITAL COURSE: 67-year-old white female was hospitalized with cough, congestion, influenza type of symptoms with generalized aches and pains. The patient had atrial fib with rapid ventricular response. The patient was treated with IV antibiotics, steroids, nebs treatment, IV fluids. The patient went into fluid overload with congestive heart failure. She went into respiratory failure which treated with IV Lasix. The patient is on Lanoxin 0.125 mcg daily. Several Lanoxin levels were below normal. Cardizem is 90 mg twice a day, Lasix 20 mg p.o. daily. She was discharged on Levafloxacin to be taken for 5 days with tapering dose of steroids. Synthroid needs to be continued same as before. Zestril 20 mg p.o. twice a day. Minoxidil 2.5 to control her heart rate was added. The patient was on Tamiflu 75 mg twice a day. The patient's conditions has improved. Her oxygen saturatin 90% on room air with p02 of 54. The patient is mildly short of breath on exertion but at rest she has no orthopnea, no PND, no fever, no chills. Her appetite has improved. Condition at time of discharge is stable. Prognosis is poor. LABS ON DISCHARGE: Hemoglobin 9.9, hematocrit 30, WBC 22,000, normal differential. Creatinine 1.7, BUN 74, potassium 4.7. Glucose 470. Of note, the patient has estimated GFR close to 30 during the stay in the hospital. With aggressive diuretic therapy she has stayed around that. Of Note: The patient is strongly advised to drink fluids and eat her meals regularly three times a day. She doesn't have any help except for a young nephew she has that helps her. She declines to go to skilled nursing or assisted living. With her multiple medical problems and her inability to walk she walks from bed to bathroom even when she is practically close to normal. I wonder how long she will keep out of the hospital. I expect her to come back with any of her multiple medical problems she has at anytime back to the emergency room. The patient has [id number] score more than 4. She was explained about complications of atrial fibrillation and complications of Walt blood thinners and Coumadin. After long consideration she has decided not to be on it for fear of having low blood count and bleeding is well-founded because she required 2 units of packed red cells and she has declined any GI workup of any kind like esophagoscopy, colonoscopy or GI referral to a specialist. TIME SPENT: More than 60 minutes. LICO
--- NOTE | 2017-10-20 13:28 | PN ---
CODING FOR BILLIN09/23/17 LEVEL 5 09/24/17 INTERMEDIATE 09/25/17 EXTENSIVE 09/26/17 EXTENSIVE 09/27/17 EXTENSIVE 09/28/17 INTERMEDIATE 09/29/17 INTERMEDIATE 09/30/17 INTERMEDIATE 10/01/17 DISCHARGE MTDD
--- NOTE | 2017-10-21 09:38 | PN ---
DATE OF SERVICE: 09/26/17 SUBJECTIVE: 67-year-old white female seen with nurse practitioner. The patient has respiratory failure which has improved remarkably. Yesterday the patient went into acute respiratory distress with increased RVR. The patient had severe hypoxemia, all hs resolved. She is feeling better. She is up and about. Rate is 80 to 90/min. The blood pressure is under control. Kidney functions have deteriorated some from aggressive diuretic therapy. The sugar was 593 because of steroid, extra dose that was given, coverage with Accu-Check. Will do chest x -ray today, Lovenox 120 mg daily. Echo to be done if not done in the past several months. By reviewing her previous record, the patient had an Echo done in January or February with paradoxical septal wall motion and LVH with enlarged LA cavity. The patient definitely has pulmonary hypertension with severe chronic lung disease which is more restrictive, moderate to severe with PFT done around January or February,. The patient was explained about this finding. The patient yesterday had CHF bout likely from fluid overload and hypertension. The blood pressure is well controlled. The RVR with atrial fibrillation well-controlled. PHYSICAL EXAMINATION: HEENT: Head normocephalic, atraumatic. Eyes: Extraocular muscles are intact. Pupils are equal, round and reactive to light and accommodation. Ears: No lesions. Nose appeared normal. Throat: No exudate or erythema. NECK: Supple. No JVD, no carotid bruit. No lymphadenopathy or thyromegaly. LUNGS: Few creps at the bases but good air entry. Oxygen saturation 92% on room air. Percussion note normal. Chest symmetrical. HEART: S1, S2, no S3. No murmurs. No cyanosis or clubbing. No ascites. Pulses: Dorsalis pedis and posterior tibial pulses +1 to +2 both sides. ABDOMEN: Soft. Nontender. Bowel sounds active. No CVA tenderness. No mass felt. EXTREMITIES: No edema. Full range of motion of all extremities, equal. NEUROLOGIC: No focal deficit. Cranial nerves II through XII are grossly intact. No headache, no double vision or headache. SKIN: Not dry. Intact. Turgor - normal. LYMPHATIC: No palpable lymph nodes/no lymphedema. MUSCULOSKELETAL: Normal joints with no swelling. Muscle tone is normal. The diagnoses discussed with the patient in detail. CONDITION: Stable. TIME SPENT: More than 30 minutes. Plan and coordination of the patient's care discussed in the presence of nurse. LICO
--- NOTE | 2017-10-21 09:39 | PN ---
CODING FOR BILLIN09/26/17 CODE THIS DAY EXTENSIVE MTDD
--- NOTE | 2017-10-21 09:47 | PN ---
DATE OF SERVICE: 09/25/17 SUBJECTIVE: The patient went into respiratory distress around 6 p.m. I was called by the nurse. The patient had saturation drop to 88% on 30 to 40% Venti-Mask with atrial fib with rate of 130/min. The blood pressure systolic was 160. The patient at that point was given Morphine Sulfate 3 mg, IV Lasix 80 mg, Solu- Cortef 125 mg IV and Lanoxin 0.25 mg IV and then later on the patient was transferred to the [facility]. Also the patient had a D. dimer which was high. The patient is unable to get any pulmonary workup in the way of CT scan because of her abnormal kidney function. The patient will have venous scan. If it is negative and if the patient's condition stays the same and improves remarkably within a couple of hours, IV Lasix and Morphine very likely the patient had fluid overload with CHF. The IV fluids have already been discontinued now so I don't think the patient had pulmonary embolus. There is no need to pursue it further. The patient likely had fluid overload with CHF. She is feeling better. After she was moved to [facility], by then the effects of medication had already taken place. Of note: The patient is a full code. The patient was seen in [facility]. TIME SPENT: More than 30 minutes. Plan and coordination of the patient's care discussed in the presence of nurse. LICO
== END 2017-10-01 13:40 | disposition home health service (06) | DRG 152 ==
LOC: ED 10:53 → MEDSURG B 13:38 → SCU 09-25 21:35
PROVIDERS: ADMIT Internal Medicine; ATTEND Internal Medicine
PROC: 30233N1 Transfusion of Nonautologous Red Blood Cells into Peripheral Vein, Percutaneous Approach (ICD-10-PCS; principal; 2017-09-23)
PROC: 30233N1 Transfusion of Nonautologous Red Blood Cells into Peripheral Vein, Percutaneous Approach (ICD-10-PCS; 2017-09-24)
DX: J11.1 Influenza due to unidentified influenza virus with other respiratory manifestations (principal); J96.01 Acute respiratory failure with hypoxia; J44.0 Chronic obstructive pulmonary disease with (acute) lower respiratory infection; N17.9 Acute kidney failure, unspecified; Z68.41 Body mass index [BMI] 40.0-44.9, adult; J20.9 Acute bronchitis, unspecified; J18.9 Pneumonia, unspecified organism; I51.7 Cardiomegaly; I48.0 Paroxysmal atrial fibrillation; E11.65 Type 2 diabetes mellitus with hyperglycemia; N18.9 Chronic kidney disease, unspecified; I50.9 Heart failure, unspecified; D64.9 Anemia, unspecified; I10 Essential (primary) hypertension; E87.6 Hypokalemia; E66.9 Obesity, unspecified; M79.662 Pain in left lower leg; M79.661 Pain in right lower leg; M62.81 Muscle weakness (generalized); E78.5 Hyperlipidemia, unspecified; G25.81 Restless legs syndrome; R41.0 Disorientation, unspecified; R07.9 Chest pain, unspecified; R06.02 Shortness of breath; R23.1 Pallor; R40.2411 Glasgow coma scale score 13-15, in the field [EMT or ambulance]; R00.0 Tachycardia, unspecified; R63.1 Polydipsia; Z79.84 Long term (current) use of oral hypoglycemic drugs; Z79.899 Other long term (current) drug therapy; Z91.19 Patient's noncompliance with other medical treatment and regimen
CPT/HCPCS: 36415; 36430; 80053; 80162; 80202; 81001; 82550; 82803; 82947; 82962; 83880; 84145; 84165; 84439; 84443; 84484; 85007; 85025; 85379; 86850; 86900; 86922; 87040; 87086; 87186; 87502; 93005; 93010; 94640; 96365; 96375; 99284

== ENCOUNTER 2017-10-04 19:01 | Emergency (ER) ==
[2017-10-04] MEDS ORDERED: URO-JET MUCOUSMEMB STA (19:04)
[2017-10-04] MEDS ORDERED: SODIUM CHLORIDE 1,000 ML IV STA ×2 (19:08→22:57)
[2017-10-04 19:40] VITALS: BP 86/38; TEMP 96.3; BMI 39.3
--- NOTE | 2017-10-04 20:02 | ED.PDOC ---
Procedures - IV/Art Line Insertion Location: Rt thumb Type of Line: Peripheral IV Invasive Line/IV Catheter Gauge: 24 Number of Attempts: 1 Blood Return Positive: Yes Invasive Line/IV Flushes Without Difficulty: Yes Conscious Sedation - Pre-op Assessment Weight: 251 lb 5.231 oz - Medical History Past Medical History: Hypertension, Diabetes, Thyroid, CHF, A-FIb, COPD, GERD, Kidney Stones, Depression, Anxiety, Arthritis Other History: A-FIB - Physical Exam Heart Rate/Rhythm: Regular Rhythm
--- NOTE | 2017-10-04 20:19 | DI ---
EXAM: Single view chest. HISTORY: Cough. Prior history of pneumonia. COMPARISON: 09/18/2017 FINDINGS: A single portable AP view of the chest. LUNGS: The lung volumes are low. There is no lobar consolidation or effusion. The pulmonary interst itium is normal. There are no suspicious nodules. MEDIASTINUM: The heart is enlarged. The pulmonary vasculature is normal. The aorta is tortuous an d calcified. OSSEOUS STRUCTURES: The osseous structures show mild degenerative changes consistent with age. The so ft tissues are unremarkable. IMPRESSION: 1. Low lung volumes. No definite lobar consolidation. 2. Cardiomegaly.
[2017-10-04] MEDS ORDERED: VANCOMYCIN 1,000 MG in SODIUM CHLORIDE 200 ML IV STA (20:21)
[2017-10-04] MEDS ORDERED: VANCOMYCIN ONE (20:25)
[2017-10-04] MEDS ORDERED: KAYEXALATE SUSP PO STA (20:51)
--- NOTE | 2017-10-04 21:21 | ED.PDOC ---
General ED Provider: Dr. FADUMO CHARLTON-ER Chief Complaint: Weakness Stated Complaint: was just here for pneumonia and flu--got acall her bp is low Time Seen by Physician: 21:19 Mode of Arrival: Ambulance Information Source: Patient, Family Exam Limitations: No limitations Primary Care Provider: PATRICIA KAUR Seen Within Last 72 Hours for Same Complaint By: In-Patient Facility Nursing and Triage Documentation Reviewed and Agree: Yes Reviewed sepsis parameters & appropriate labs ordered?: Yes System Inflammatory Response Syndrome: Not Applicable Sepsis Protocol: For patient's 13 years and over: Temp is 96.8 and below OR 101 and greater Pulse >90 BPM Resp >20/minute Acutely Altered Mental Status Are patient's symptoms suggestive of a new infection, such as: -Pneumonia -Skin, Soft Tissue -Endocarditis -UTI -Bone, Joint Infection -Implantable Device -Acute Abdominal Infection -Wound Infection -Meningitis -Blood Stream Catheter Infection -Unknown Miscellaneous Complaint Exam - Complex/Multi-System Complaint/Exam Onset/Duration: 2-3 days Symptoms Are: Still present Initial Severity: Mild Current Severity: Mild Associated Signs and Symptoms: Reports: Decreased responsiveness, Weakness, Decreased oral intake. Denies: Confusion, Agitation, Dizziness, Syncope, Headache, Short of air, Cough, Wheezing, Hemoptysis, Chest pain, Palpitations, Edema, Nausea, Vomiting, Diarrhea, Abdominal pain, Back pain, Dysuria, Hematemesis, Melena Recent Echo/LV Function: No JVD Present: No Tachypnea Present: No Stridor Present: No Abdominal Findings: Present: Normal findings Meningeal Signs Positive: No Focal Sensory Loss: Present: None Gait: Unable Gag Reflex Present: Yes Skin Findings: Present: Normal findings Joint Swelling Present: No In-Dwelling Device Present: No Differential Diagnosis: Sepsis, UTI Quality Indicator For Non-Traumatic Chest Pain/Syncope: EKG Performed Review of Systems - Review Of Systems Constitutional: Reports: No symptoms Eyes: Reports: No symptoms Ears, Nose, Mouth, Throat: Reports: No symptoms Respiratory: Reports: No symptoms Cardiac: Reports: No symptoms GI: Reports: No symptoms : Reports: No symptoms Musculoskeletal: Reports: No symptoms Skin: Reports: No symptoms Neurological: Reports: No symptoms Endocrine: Reports: No symptoms Hematologic/Lymphatic: Reports: No symptoms All Other Systems: Reviewed and Negative Past Medical History - Past Medical History Previously Healthy: No Endocrine: Reports: None Cardiovascular: Reports: Hypertension, CHF Respiratory: Reports: COPD Hematological: Reports: None Gastrointestinal: Reports: None Genitourinary: Reports: None Neuro/Psych: Reports: None Musculoskeletal: Reports: None Cancer: Reports: None Last Menstrual Period: na - Surgical History General Surgical History: Reports: None - Family History Family History: Reports: None - Social History Smoking Status: Former smoker Hx Substance Use: No Alcohol Screening: None Lives: With family Physical Exam - Physical Exam Appearance: Ill-appearing Ill-appearing: Moderate Eyes: LOREN, EOMI, Conjunctiva clear ENT: Ears normal, Nose normal, Oropharynx normal Neck: Supple Respiratory: Airway patent, Breath sounds clear, Breath sounds equal, Respirations nonlabored Cardiovascular: RRR, Pulses normal, No rub, No murmur GI/: Soft, Nontender, No masses, Bowel sounds normal, No Organomegaly Musculoskeletal: Normal strength, ROM intact, No edema, No calf tenderness Skin: Warm, Dry, Normal color Neurological: Sensation intact, Motor intact, Reflexes intact, Cranial nerves intact, Alert, Oriented Psychiatric: Affect appropriate, Mood appropriate Interpretation - Radiology Interpretation Radiology Interpretation By: Radiologist Radiology Results: Negative Exam Interpreted: Portable CXR - EKG Interpretation Time of EKG #1: 21:21 Rate: Tachy Rhythm: Other Ectopy: None [place]: [place] ST Segment: Normal Physician Notification - Case Discussed Physician Notified: dr kaur--asked for the patient to be transferred under my service Time of Notification: 21:15 Critical Care Note - Critical Care Note Total Time (mins): 45 Course - Course Hematology/Chemistry: 10/04/17 19:48 10/04/17 19:48 Orders, Labs, Meds: Lab Review 10/04/17 10/04/17 10/04/17 19:04 19:40 19:40 WBC RBC Hgb Hct MCV MCH MCHC RDW Coeff of Taylor Plt Count Immature Gran % (Auto) Neut % (Auto) Lymph % (Auto) [place] % (Auto) Eos % (Auto) Baso % (Auto) Immature Gran # (Auto) Neut # Lymph # [place] # Eos # Baso # Puncture Site Lr O2 Saturation 95.0 ABG pH 7.316 L ABG pCO2 36.3 ABG pO2 82.0 L ABG HCO3 18.6 L ABG Total CO2 20 L ABG Base Excess -8 L Scooby Test + O2 Delivery Device bnc Oxygen Liter Flow 2.00 FiO2 % 28.0 Sodium Potassium Chloride Carbon Dioxide Anion Gap BUN Creatinine Estimated GFR (MDRD) BUN/Creatinine Ratio Glucose Lactic Acid Calcium Total Bilirubin AST ALT Alkaline Phosphatase Total Creatine Kinase Troponin I Total Protein Albumin Globulin Albumin/Globulin Ratio Procalcitonin Urine Color Yellow Urine Clarity Cloudy Urine pH 5.0 Ur Specific [place] 1.025 Urine Protein Trace Urine Glucose (UA) Negative Urine Ketones Negative Urine Blood 2+ Urine Nitrite Negative Urine Bilirubin Negative Urine Urobilinogen 0.2 Ur Leukocyte Esterase 2+ Urine Microscopic RBC 10-20 Urine Microscopic WBC 30-50 Ur Squamous Epith Cells Not present Amorphous Sediment 1+ Urine Bacteria 3+ Influenza A (Rapid) Negative by naat Influenza B (Rapid) Negative by naat 10/04/17 10/04/17 10/04/17 19:48 19:48 19:48 WBC 25.90 H RBC 3.18 L Hgb 8.3 L Hct 26.6 L MCV 83.6 MCH 26.1 L MCHC 31.2 L RDW Coeff of Taylor 18.2 H Plt Count 303 Immature Gran % (Auto) 1.5 Neut % (Auto) 93.5 Lymph % (Auto) 2.5 L [place] % (Auto) 2.3 Eos % (Auto) 0.1 Baso % (Auto) 0.1 Immature Gran # (Auto) 0.4 Neut # 24.2 H Lymph # 0.7 [place] # 0.6 Eos # 0.0 Baso # 0.0 Puncture Site O2 Saturation ABG pH ABG pCO2 ABG pO2 ABG HCO3 ABG Total CO2 ABG Base Excess Scooby Test O2 Delivery Device Oxygen Liter Flow FiO2 % Sodium 135 L Potassium 7.2 H* Chloride 108 H Carbon Dioxide 19 L Anion Gap 15.2 BUN 130 H* Creatinine 3.39 H Estimated GFR (MDRD) 13.00 BUN/Creatinine Ratio 38.34 Glucose 449 H Lactic Acid 14.9 Calcium 8.8 Total Bilirubin 0.3 AST 10 L ALT 8 L Alkaline Phosphatase 66 Total Creatine Kinase 13 Troponin I 0.0670 Total Protein 5.9 Albumin 2.0 L Globulin 3.9 Albumin/Globulin Ratio 0.51 Procalcitonin Urine Color Urine Clarity Urine pH Ur Specific [place] Urine Protein Urine Glucose (UA) Urine Ketones Urine Blood Urine Nitrite Urine Bilirubin Urine Urobilinogen Ur Leukocyte Esterase Urine Microscopic RBC Urine Microscopic WBC Ur Squamous Epith Cells Amorphous Sediment Urine Bacteria Influenza A (Rapid) Influenza B (Rapid) 10/04/17 19:48 WBC RBC Hgb Hct MCV MCH MCHC RDW Coeff of Taylor Plt Count Immature Gran % (Auto) Neut % (Auto) Lymph % (Auto) [place] % (Auto) Eos % (Auto) Baso % (Auto) Immature Gran # (Auto) Neut # Lymph # [place] # Eos # Baso # Puncture Site O2 Saturation ABG pH ABG pCO2 ABG pO2 ABG HCO3 ABG Total CO2 ABG Base Excess Scooby Test O2 Delivery Device Oxygen Liter Flow FiO2 % Sodium Potassium Chloride Carbon Dioxide Anion Gap BUN Creatinine Estimated GFR (MDRD) BUN/Creatinine Ratio Glucose Lactic Acid Calcium Total Bilirubin AST ALT Alkaline Phosphatase Total Creatine Kinase Troponin I Total Protein Albumin Globulin Albumin/Globulin Ratio Procalcitonin 0.16 Urine Color Urine Clarity Urine pH Ur Specific [place] Urine Protein Urine Glucose (UA) Urine Ketones Urine Blood Urine Nitrite Urine Bilirubin Urine Urobilinogen Ur Leukocyte Esterase Urine Microscopic RBC Urine Microscopic WBC Ur Squamous Epith Cells Amorphous Sediment Urine Bacteria Influenza A (Rapid) Influenza B (Rapid) Orders Category Date Time Status ABG DRAW REQUEST Stat CARDIO 10/04/17 19:04 Ordered EKG-(ED ONLY) Stat CARDIO 10/04/17 19:04 Ordered TRANSFER TO OUTSIDE FACILITY .TO [facility] 10/04/17 21:23 Active ([place], [place]) WRITE TRANSFER/SBAR NOTE ONCE CARE 10/04/17 21:23 Active DISCHARGE ASSESSMENT ONCE DISCHARGE 10/04/17 21:23 Active WRITE DISCHARGE NOTE ONCE DISCHARGE 10/04/17 21:23 Active Uranium Processing Supervisor [ED PLATE DRYING MACHINE TENDER APPLIED] .ONCE EMERGENCY 10/04/17 19:09 Active Catheter [ED CATHETER INSERTION AND CARE] .ONCE EMERGENCY 10/04/17 19:04 Active ED IV/MEDIPORT/POWERPORT .ONCE EMERGENCY 10/04/17 19:08 Active IV [ED IV/MEDIPORT/POWERPORT] .ONCE EMERGENCY 10/04/17 19:07 Active ABG Stat LAB 10/04/17 19:04 Completed BLOOD CULTURE (ED ONLY) Stat LAB 10/04/17 19:48 Received CBC W/ AUTO DIFF Stat LAB 10/04/17 19:48 Completed COMPREHENSIVE METABOLIC PANEL Stat LAB 10/04/17 19:48 Completed CREATINE KINASE Stat LAB 10/04/17 19:48 Completed LACTIC ACID Stat LAB 10/04/17 19:48 Completed MOLECULAR FLU A/B Stat LAB 10/04/17 19:40 Completed MOLECULAR GROUP A STREP Stat LAB 10/04/17 19:40 Completed PROCALCITONIN Stat LAB 10/04/17 19:48 Completed TROPONIN I Stat LAB 10/04/17 19:48 Completed UA [URINALYSIS C & S IF INDICATED] Stat LAB 10/04/17 19:40 Completed URINE CULTURE Stat LAB 10/04/17 19:40 Received 0.9 % Sodium Chloride [Saline Flush] MEDS 10/04/17 19:07 Ordered 1 syr IVF PRN PRN Lidocaine HCl [Uro-Jet] MEDS 10/04/17 19:04 Discontinued 10 ml [id number] ONCE STA Sodium Chloride 0.9% [Sodium Chloride] 1,000 ml MEDS 10/04/17 19:08 Discontinued IV BOLUS Sodium Polystyrene Sulfonate [Kayexalate Susp] MEDS 10/04/17 20:51 Discontinued 30 gm PO ONCE STA Vancomycin HCl [Vancomycin] MEDS 10/04/17 20:25 Discontinued 1,000 mg .ROUTE .STK-MED ONE Vancomycin HCl [Vancomycin] 1,000 mg MEDS 10/04/17 20:21 Active 0.9 % Sodium Chloride [Sodium Chloride] 200 ml IV ONCE CXR [CHEST, 1V AP ONLY] Stat RADS 10/04/17 19:09 Completed Medications Generic Name Dose Route Start Last Admin Trade Name Freq PRN Reason Stop Dose Admin Vancomycin HCl 1,000 mg/ 200 mls @ 100 mls/hr 10/04/17 20:21 10/04/17 20:30 Sodium Chloride IV 10/04/17 22:20 100 mls/hr ONCE STA Administration Sodium Chloride 1 syr 10/04/17 19:07 10/04/17 20:04 Saline Flush IVF 1 syr PRN PRN Administration To flush IV Discontinued Medications Generic Name Dose Route Start Last Admin Trade Name Freq PRN Reason Stop Dose Admin Sodium Chloride 1,000 mls @ 1,000 mls/hr 10/04/17 19:08 10/04/17 20:04 Sodium Chloride IV 10/04/17 20:07 500 mls/hr BOLUS STA Administration Lidocaine HCl 10 ml 10/04/17 19:04 10/04/17 20:05 Uro-Jet MUCOUSMEMB 10/04/17 19:05 Not Given ONCE STA Sodium Polystyrene Sulfonate 30 gm 10/04/17 20:51 10/04/17 21:29 Kayexalate Susp PO 10/04/17 20:52 30 gm ONCE STA Administration Vital Signs: Temp Pulse Resp BP Pulse Ox 10/04/17 19:03 96.3 F L 79 18 86/38 L 98 Departure - Departure Time of Disposition: 21:22 Disposition: TSF SHORT-TRM HOSP Discharge Problem: Hyperkalemia, SELINA (acute kidney injury) Sepsis Qualifiers: Sepsis type: sepsis due to unspecified organism Qualified Code(s): A41.9 - Sepsis, unspecified organism UTI (urinary tract infection) Qualifiers: Urinary tract infection type: site unspecified Hematuria presence: without hematuria Qualified Code(s): N39.0 - Urinary tract infection, site not specified Instructions: Sepsis (GEN) Condition: Poor Pt referred to PMD for follow-up: Yes Allergies/Adverse Reactions: Allergies amoxicillin [Amoxicillin] Adverse Reaction (Verified 09/23/17 11:12) azithromycin Adverse Reaction (Verified 09/23/17 11:12) clarithromycin [From Biaxin] Adverse Reaction (Verified 09/23/17 11:12) Macrolide Antibiotics Adverse Reaction (Verified 09/23/17 11:12) Hives telithromycin [From KETEK] Adverse Reaction (Verified 09/23/17 11:12) Home Medications: Ambulatory Orders Albuterol Sulfate [Proair Hfa] 2 puff IH Q4H 03/17/14 Levothyroxine Sodium [Synthroid] 175 mcg PO DAILY 03/17/14 Aspirin [Adult Low Dose Aspirin EC] 81 mg PO BID 09/04/15 Digoxin [Lanoxin] 125 mcg PO DAILY #30 tablet 09/04/15 Fluticasone Propionate [Flonase] 1 spray LAYLA DAILY btl 09/04/15 Furosemide [Lasix] 20 mg PO DAILY #30 tablet 09/04/15 Hydrocodone Bit/Acetaminophen [[place] 7.5-325] 1 tab PO Q6HR PRN 09/04/15 Diltiazem HCl [Cardizem] 90 mg PO Q12HR #90 tablet 10/01/17 Insulin Glargine,Hum.rec.anlog [Lantus] 40 unit SUBCUT BID #30 ml 10/01/17 Levofloxacin [Levaquin] 250 mg PO QDAC #5 tablet 10/01/17 Lisinopril 20 mg PO BID #60 tablet 10/01/17 Potassium Chloride [K-Dur] 20 meq PO DAILY #30 tab 10/01/17 Prednisone 10 mg PO DIRECTED #15 tablet 10/01/17 Ropinirole HCl [Requip] 0.5 mg PO DAILY #30 tablet 10/01/17 Disposition Discussed With: Patient, Family
== END 2017-10-05 00:25 | disposition short-term general hospital (02) ==
LOC: ED 19:01
DX: E87.5 Hyperkalemia (principal); A41.9 Sepsis, unspecified organism; N39.0 Urinary tract infection, site not specified; R03.1 Nonspecific low blood-pressure reading; N17.9 Acute kidney failure, unspecified; R53.1 Weakness; I48.91 Unspecified atrial fibrillation; R41.0 Disorientation, unspecified; R40.4 Transient alteration of awareness; I50.9 Heart failure, unspecified; J44.9 Chronic obstructive pulmonary disease, unspecified; Z79.899 Other long term (current) drug therapy
CPT/HCPCS: 36415; 80053; 81001; 82550; 82803; 83605; 84145; 84484; 85025; 87040; 87086; 87186; 87502; 87651; 93005; 93010; 96361; 96365; 96366; 99285

== ENCOUNTER 2017-10-23 21:10 | Inpatient (IN) | payer OTHER ==
[2017-10-23 22:16] VITALS: BMI 43.1
[2017-10-23] MEDS ORDERED: ALBUTEROL 0.083% NEB NEB PRN (23:28)
[2017-10-24] MEDS ORDERED: SYNTHROID ONE (06:22)
[2017-10-24] MEDS ORDERED: NON-FORMULARY MEDICATION (Levothyroxine Sodium [Synthroid] 200 MCG) PO SCH (06:30)
[2017-10-24] MEDS: PROTONIX PO SCH ×2 (06:31→17:51)
[2017-10-24] MEDS ORDERED: NON-FORMULARY MEDICATION (Metformin Hcl [Metformin Hcl] 1,000 MG) PO SCH (08:00)
[2017-10-24] MEDS: SANTYL TP SCH (08:28)
[2017-10-24] MEDS: NYSTATIN CREAM TP SCH ×2 (08:28→20:41)
[2017-10-24] MEDS: ASPIRIN EC PO SCH ×2 (08:29→17:51)
[2017-10-24] MEDS: LANOXIN PO SCH (08:35)
[2017-10-24] MEDS: K-DUR PO SCH (08:35)
[2017-10-24] MEDS: MINOXIDIL PO SCH ×2 (08:35→20:42)
[2017-10-24] MEDS: GLUCOPHAGE PO SCH ×2 (08:35→11:18)
[2017-10-24] MEDS: PREDNISONE PO SCH (08:36)
--- NOTE | 2017-10-24 10:18 | PN ---
DATE OF SERVICE: 10/23/17 SUBJECTIVE: The patient was admitted to swing bed after being discharged from [facility]. At [facility] the patient was treated for sepsis, acute kidney injury, hyperkalemia and urinary tract infection with hematuria, chronic atrial fibrillation, sepsis due to e-coli, hydronephrosis due to obstruction of ureter on the left bowel perforation, gastric hemorrhage associate with peptic ulcer disease, hypernatremia and melena. Other problems are chronic lung disease, congestive heart failure, atrial fibrillation, anemia, dyslipidemia, obesity, chronic kidney disease and noncompliance. The patient is DNR. REVIEW OF SYSTEMS: CONSTITUTIONAL: No night sweats. No fatigue, malaise, lethargy. No fever or chills. HEENT: Eyes: No visual changes. No eye pain. No eye discharge. ENT: No runny nose. No epistaxis. No sinus pain. No sore throat. No odynophagia. No congestion. RESPIRATORY: No cough, no congestion. No hemoptysis. Mild shortness of breath. CARDIOVASCULAR: No angina symptoms. No CHF symptoms. No atypical chest pain for CAD. No palpitations. No orthopnea. GASTROINTESTINAL: No abdominal pain. No nausea or vomiting. No diarrhea or constipation. No hematemesis. No hematochezia. GENITOURINARY: No urgency. No frequency. No dysuria. No hematuria. No obstructive symptoms. No discharge. No pain. No significant abnormal bleeding. MUSCULOSKELETAL: No musculoskeletal pain; no joint swelling. NEUROLOGICAL: No headache. No neck pain. No syncope. No seizures. No dizziness. PSYCHIATRIC: Not anxious. No depression. No suicidal thoughts. No homicidal thoughts. SKIN: No rash. No lesions. No wounds. ENDOCRINE: No unexplained weight loss. No weight gain. HEMATOLOGIC/LYMPHATIC: No anemia. No purpura. No petechiae. No prolonged or excessive bleeding. No palpable lymph nodes. PHYSICAL EXAMINATION: GENERAL: The patient is oriented to time, place and person. HEENT: Head normocephalic, atraumatic. Eyes: Extraocular muscles are intact. Pupils are equal, round and reactive to light and accommodation. Ears: No lesions. Nose appeared normal. Throat: No exudate or erythema. NECK: Supple. No JVD, no carotid bruit. No lymphadenopathy or thyromegaly. LUNGS: Decreased breath sounds but clear to auscultation. Percussion note normal. Chest symmetrical. HEART: S1, S2, no S3. No murmurs. No cyanosis or clubbing. No ascites. Pulses: Dorsalis pedis and posterior tibial pulses +1 to +2 both sides. ABDOMEN: Soft. Nontender. Bowel sounds active. No CVA tenderness. No mass felt. EXTREMITIES: No edema. Full range of motion of all extremities, equal. NEUROLOGIC: No focal deficit. Cranial nerves II through XII are grossly intact. No headache, no double vision or headache. SKIN: Not dry. Intact. Turgor - normal. LYMPHATIC: No palpable lymph nodes/no lymphedema. MUSCULOSKELETAL: Normal joints with no swelling. Muscle tone is normal. ASSESSMENT: 1. Acute kidney injury with renal failure has resolved 2. Ureter calculus left side 3. Hydronephrosis with stent placement by Dr. Herring 4. Chronic atrial fibrillation 5. COPD 6. Congestive heart failure 7. Obesity 8. Chronic lung disease 9. Dyslipidemia 10.Hypertension 11.Non-compliance CONDITION: Stable at present time. PLAN: 1. Physical therapy. The patient needs ambulation and the patient needs to be motivated 2. Evaluate her day to day basis TIME SPENT: More than 30 minutes. Plan and coordination of the patient's care discussed in the presence of nurse. LICO
[2017-10-24] MEDS: NYSTOP POWDER TP SCH ×2 (10:42→20:41)
--- NOTE | 2017-10-24 11:11 | PCM.PROG ---
Attending Provider: ATTENDING PROVIDER: Dr. PATRICIA PICKARD This patient is seen with Lacey Gipson, Nurse Practitioner. DATE OF SERVICE: 10/24/17 SUBJECTIVE: This 67 year old WHITE/ F was hospitalized 10/23/17. The patient is lying in bed, resting comfortably. She arrived last night from [facility] here for PT/OT due to generalized weakness. The patient was treated for head lice at [facility]; nits still present. REVIEW OF SYSTEMS: CONSTITUTIONAL: Weakness. No night sweats. No malaise, lethargy. No fever or chills. HEENT: Eyes: No visual changes. No eye pain. No eye discharge. ENT: No runny nose. No epistaxis. No sinus pain. No odynophagia. No congestion. RESPIRATORY: No cough, no congestion. No hemoptysis. No shortness of breath. CARDIOVASCULAR: No angina symptoms. No CHF symptoms. No atypical chest pain for CAD. No palpitations. No orthopnea.. GASTROINTESTINAL: No abdominal pain. No nausea or vomiting. No diarrhea or constipation. No hematemesis. No hematochezia. GENITOURINARY: No urgency. No frequency. No dysuria. No hematuria. No obstructive symptoms. No discharge. No pain. No significant abnormal bleeding. MUSCULOSKELETAL: No musculoskeletal pain; no joint swelling. NEUROLOGICAL: Sleeping, resting comfortably. No headache. No neck pain. No syncope. No seizures. No dizziness. PSYCHIATRIC: Not anxious. No depression. No suicidal thoughts. No homicidal thoughts. SKIN: No rash. No lesions. Decubitus to gluteal fold and left inner thigh, present on admission. ENDOCRINE: No unexplained weight loss. No weight gain. HEMATOLOGIC/LYMPHATIC: No anemia. No purpura. No petechiae. No prolonged or excessive bleeding. No palpable lymph nodes. PHYSICAL EXAMINATION: GENERAL: The patient is resting comfortably lying in bed in no distress. VITAL SIGNS: Temperature 98.0 F, Pulse 107, Respiratory Rate 17, BP 135/85, Pulse Ox 91% HEENT: Head normocephalic, atraumatic. Scalp - positive for nits. Eyes: Extraocular muscles are intact. Pupils are equal, round and reactive to light and accommodation. Ears: No lesions. Nose appeared normal. Throat: No exudate or erythema. NECK: Supple. No JVD, no carotid bruit. No lymphadenopathy or thyromegaly. LUNGS: Clear to auscultation. Percussion note normal. Chest symmetrical. HEART: Irregular heart rate with atrial fib. S1, S2, no S3. No murmurs. No cyanosis or clubbing. No ascites. Pulses: Dorsalis pedis and posterior tibial pulses +1 to +2 both sides. ABDOMEN: Soft. Non-tender. Bowel sounds active. No CVA tenderness. No mass felt. EXTREMITIES: No edema. Full range of motion of all extremities, equal. NEUROLOGIC: No focal deficit. Cranial nerves II through XII are grossly intact. No headache, no double vision or headache. SKIN: Warm and dry. Turgor-normal. Stage 2 decubitus, 6 cm x 2 cm gluteal fold , left inner thigh present on admission LYMPHATIC: No palpable lymph nodes/no lymphedema. MUSCULOSKELETAL: Normal joints with no swelling. Muscle tone is normal. LAB REVIEW: 10/24/17 04:30 10/24/17 04:30 10/24/17 04:30: Sodium 144, Potassium 4.5, Chloride 106, Carbon Dioxide 32 H, Anion Gap 10.5, BUN 15, Creatinine 1.30, Estimated GFR (MDRD) 41.00, BUN/ Creatinine Ratio 11.53, Glucose 52 L, Calcium 7.8 L, Total Bilirubin 0.4, AST 13 L, ALT 8 L, Alkaline Phosphatase 78, Total Protein 5.8, Albumin 1.6 L, Globulin 4.2, Albumin/Globulin Ratio 0.38 10/24/17 04:30: WBC 5.77, RBC 3.11 L, Hgb 9.3 L, Hct 30.3 L, MCV 97.4, MCH 29.9 , MCHC 30.7 L, RDW Coeff of Taylor 21.4 H, Plt Count 247, Immature Gran % (Auto) 0.5, Neut % (Auto) 53.1, Lymph % (Auto) 30.5, [place] % (Auto) 11.4 H, Eos % (Auto ) 4.2, Baso % (Auto) 0.3, Immature Gran # (Auto) 0.0, Neut # 3.1, Lymph # 1.8, [place] # 0.7, Eos # 0.2, Baso # 0.0 ASSESSMENT: 1. GENERALIZED WEAKNESS 2. RESOLVING SEPSIS DUE TO E. COLI 3. ATRIAL FIBRILLATION 4. OBESITY 5. COPD 6. DM TYPE 2 7. HYPERTENSION 8. DYSLIPIDEMIA 9. HEAD LICE PLAN: 1. CBC, CMP daily 2. EKG 3. Chest x-ray 4. Digoxin level 5. Will investigate previous treatment for head lice, may need treatment again. Plan and coordination of the patient's care discussed in the presence of Radiology Technician and nurse. CONDITION: Stable SCRIBED BY: JOSE CARLOS ORTEGA [employer] scribed while in presence of service performed by Dr. Pickard/Lacey Gipson APRN on 10/24/17 ([id number])
[2017-10-24] MEDS: HUMULIN R SUBCUT PRN ×2 (11:18→17:50)
[2017-10-24] MEDS ORDERED: NIX LICE TREATMENT TP STA (11:21)
--- NOTE | 2017-10-24 14:32 | DI ---
EXAM: CHEST FRONTAL VIEW HISTORY: Cough. COMPARISON: 10/04/2017 FINDINGS: Cardiomegaly is stable. At least mild aortic atherosclerosis. Subtle central vascular co ngestion. No obvious consolidated pneumonia, pleural fluid or pneumothorax. IMPRESSION: Cardiomegaly and subtle central vascular congestion similar that previously seen without noticeable c hange.
[2017-10-24] MEDS: LOVENOX SUBCUT SCH (15:48)
[2017-10-24] MEDS: LEVEMIR SUBCUT SCH (20:41)
[2017-10-24] MEDS: ZOCOR PO SCH (20:42)
[2017-10-24] MEDS: REQUIP PO SCH (20:42)
[2017-10-24] MEDS: NORCO 7.5-325 PO PRN (20:42)
[2017-10-24] MEDS ORDERED: NON-FORMULARY MEDICATION (Ropinirole Hcl [Requip] 0.5 MG) PO SCH (21:00)
[2017-10-25] MEDS: SYNTHROID PO SCH (05:35)
[2017-10-25] MEDS: PROTONIX PO SCH ×2 (05:35→17:27)
[2017-10-25] MEDS: LOVENOX SUBCUT SCH (08:44)
[2017-10-25] MEDS: ASPIRIN EC PO SCH ×2 (08:45→17:28)
[2017-10-25] MEDS: MINOXIDIL PO SCH ×2 (08:45→21:04)
[2017-10-25] MEDS: PREDNISONE PO SCH (08:45)
[2017-10-25] MEDS: LANOXIN PO SCH (08:45)
[2017-10-25] MEDS: K-DUR PO SCH (08:45)
[2017-10-25] MEDS: GLUCOPHAGE PO SCH ×2 (08:46→17:28)
[2017-10-25] MEDS: NYSTATIN CREAM TP SCH ×2 (08:46→21:05)
[2017-10-25] MEDS: SANTYL TP SCH (08:46)
[2017-10-25] MEDS: NYSTOP POWDER TP SCH ×2 (08:47→21:05)
--- NOTE | 2017-10-25 10:46 | RS.PTINEVL ---
Subjective - Patient information Date of Evaluation: 10/25/17 Date of Arrival on Unit: 10/23/17 Admitted From:: Facility Transfer Diagnosis: sepsis due to ecoli, afib, acute kidney injury, UTI, gastric hemorrhage Usual Living Arrangement: With Others Living Arrangement Comments: 12 year old nephew is in her custody, and she has been staying with her sister. Home Environment: House, Stairs (few), Rail Medical History: Hypertension, COPD, Diabetes, CHF, Arthritis Medical History Comments:: peptic ulcers, anxiety, chronic afib, breast implants , graves disease, hypothyroid, kidney stones, dilated cardiomyopathy Medications: see chart Subjective Information/ Patient Comments:: pt states "you people will not let me sleep" - Level of function Prior to this admission, the patient could do the following:: Independent Ambulation Abilities prior to this admission: pt amb short distances independently,sister helps with bathing. Current Level of Function: Partially Dependent Current Equipment Used at Home: rwx Interventions - Objective Patient Orientation: Person, Place, Time Current Interventions: Oxygen Range of Motion - ROM Right Upper Extremity AROM: WFL's Left Upper Extremity AROM: WFL's Right Lower Extremity AROM: WFL's Left Lower Extremity AROM: WFL's Muscle Strength - Muscle Strength Right Upper Extremity Strength: Mild Weakness (shld flex 4-/5, elbow flex/ext 4/ 5,decreased vessel slagman strength) Left Upper Extremity Strength: Mild Weakness (shld flex 4-/5, elbow flex/ext 4/5 ,decreased vessel slagman strength) Right Lower Extremity Strength: Mild Weakness (hip flex 4-/5, knee flex/ext 4/5 , ankle df/PF 4/5) Left Lower Extremity Strength: Mild Weakness (hip flex 4-/5, knee flex/ext 4/5, ankle df/PF 4/5) Sensation - Sensation Right Upper Extremity Sensation: Intact/Normal Left Upper Extremity Sensation: Intact/Normal Right Lower Extremity Sensation: Intact/Normal Left Lower Extremity Sensation: Intact/Normal Palpation Palpation Findings: None/Normal Balance - Sitting Balance and Reactions Static Sitting Balance: Good Dynamic Sitting Balance: Good Sitting Equilibrium Reactions: Within Normal Limits Left, Within Normal Limit Right Sitting Protective Reactions: Within Normal Limits Left, Within Normal Limit Right - Standing Balance and Reactions Static Standing Balance: Fair Dynamic Standing Balance: Poor Standing Equilibrium Reactions: Delayed Left, Delayed Right Standing Protective Reactions: Delayed Left, Delayed Right - Comments Balance Assessment Comments: pt with increased lat sway Functional Mobility - Bed Mobility Rolling R/L: Supervision Supine to Sit: CGA - Transfers Sit to Stand: CGA Stand to Sit: CGA - Safety Awareness Safety Awareness: Fair Ambulation - Ambulation Assistive Device Used: Rolling Walker Orthotic/Prosthetic Device: No Distance: 10ft Assistance needed with Ambulation: CGA, 1 person assist Gait Deviations: Forward posture, Short stride Ambulation Comments: pt amb with increased lat sway, decreased step length, flexed posture. Factors Affecting Ambulation: Decreased Balance, Weakness, Decreased Safety, Limited Endurance Treatment time - Time with patient Total treatment time: 28 Patient Education - Education Patient Education: Education of diagnosis, Education of Plan of Care Teaching Recipient: Patient Teaching Methods: Discussion (Discussion with patient regarding importance of participating in PT.) Assessment - Assessment Problem List:: Decreased level of function, Requires training/education, Decreased safety/Risk of falls, Weakness Rehab Potential: Good Further Therapy Indicated?: Yes Comments: lisa index 7/20 Short Term Goals GOAL #1: pt transfer sup to/from sit independently, sit to/from stand SBA Goal to be met by: 10/30/17 GOAL #2: pt amb with rwx 50ft with no LOB with CGA Goal to be met by: 10/30/17 GOAL #3: pt demonstrate improved strength BLE 4- to 4/5 Goal to be met by: 10/30/17 Custodial Goals GOAL #1: pt transfer sit to/from stand independently Goal to be met by: 11/04/17 GOAL #2: pt amb functional household distances with rwx with supervision Goal to be met by: 11/04/17 GOAL #3: pt independent with HEP Goal to be met by: 11/04/17 Plan Plan of Care: Therapeutic EX, Therapeutic Activity Other:: gait training Frequency of Treatment: 1-2 X day, as tolerated Duration of Treatment: 10 days Anticipated Discharge Destination: Home Has the Physician been added for Co-signature?: Yes
--- NOTE | 2017-10-25 15:38 | RS.OTINEVL ---
Subjective - Patient information Date of Evaluation: 10/25/17 Date of Arrival on Unit: 10/23/17 Admitted From:: Facility Transfer Usual Living Arrangement: With Others Living Arrangement Comments: 12 year old nephew is in her custody, and she has been staying with her sister. Home Environment: House, Stairs (few), Rail Medical History: Hypertension, COPD, Diabetes, CHF, Arthritis Medical History Comments:: peptic ulcers, anxiety, chronic afib, breast implants , graves disease, hypothyroid, kidney stones, dilated cardiomyopathy Medications: see chart Subjective Information/ Patient Comments:: "I need to go home. I am ready to go home." "Can't you do this at another time. " - Level of function Prior to this admission, the patient could do the following:: Independent Ambulation Abilities prior to this admission: Pt is living at home with her 12 year old nephew. Her sister is having to help her get a bath at this time. Pt uses a rollator walker. Current Level of Function: Partially Dependent Current Equipment Used at Home: rwx and BSC, Reports she needs a shower chair when she goes home. Interventions - Objective Patient Orientation: Person, Place, Time, Situation Current Interventions: Oxygen Observation: Pt is a large female that uses 2 Liters of O2 at all times. She walks with a rolling walker and becomes short of air when walking, sit to stand , and talking on the telephone. Pt has redness around her eyes and on her gluteus héctor. Interventions - ROM Right Upper Extremity AROM: WFL's Left Upper Extremity AROM: WFL's - Strength Right Upper Extremity Strength: Mild Weakness Left Upper Extremity Strength: Mild Weakness - Sensation Right Upper Extremity Sensation: Intact/Normal Left Upper Extremity Sensation: Intact/Normal Balance - Sitting Balance Static Sitting Balance: Good Dynamic Sitting Balance: Good - Standing Balance Static Standing Balance: Fair Dynamic Standing Balance: Fair ADL Skills - Self Feeding Self Feeding: Independent - Grooming Grooming: Min Assist - Bathing Bathing UE: Min Assist Bathing LE: Mod Assist - Dressing Dressing UE: Min Assist Dressing LE: Mod Assist - Toilet Management Toileting Management: Min Assist Functional Mobility - Bed Mobility Rolling R/L: Independent Scooting: Independent Supine to Sit: Independent Sit to Supine: Independent - Transfers Sit to Stand: CGA Stand to Sit: CGA Stand Pivot Transfers: CGA - Ambulation Weight Bearing Status: FWB Assistive Device Used: Rolling Walker Assistance needed with Ambulation: CGA - Safety Awareness Safety Awareness: Good Additional Treatment Performed - Time with patient Total treatment time: 29 Activities Patient Interests:: Watching Television, Visiting/Socializing Patient Education Patient Education: Education of Plan of Care Teaching Recipient: Patient, Family Teaching Methods: Discussion Assessment Problem List:: Decreased level of function, Requires training/education, Decreased safety/Risk of falls, Weakness Rehab Potential: Good Further Therapy Indicated?: Yes Short Term Goals - Goals GOAL 1: Pt to tolerate 10 minutes of standing activity. Goal to be met by: 11/01/17 GOAL 2: Pt to be SUP for sink level ADLS. Goal to be met by: 11/01/17 GOAL 3: Pt to increase BUE strength to 4/5. Goal to be met by: 11/01/17 Vacuum Worker Goals GOAL 1: Pt to tolerate 15 minutes of standing activity. Goal to be met by: 11/08/17 GOAL 2: Pt to be Mod-I for sink level ADLS. Goal to be met by: 11/08/17 GOAL 3: Pt to increase BUE strength to 4+/5. Goal to be met by: 11/08/17 Plan Plan of Care: Therapeutic EX, Neuromuscular Re-Educ, Therapeutic Activity, Self- Care/Home Management Frequency of Treatment: 1-2 X day, as tolerated Duration of Treatment: 2 Weeks Anticipated Discharge Destination: Home Has the Physician been added for Co-signature?: Yes
[2017-10-25] MEDS: NORCO 7.5-325 PO PRN (17:27)
[2017-10-25] MEDS ORDERED: REQUIP ONE (19:43)
[2017-10-25] MEDS: LEVEMIR SUBCUT SCH (21:03)
[2017-10-25] MEDS: ZOCOR PO SCH (21:04)
[2017-10-25] MEDS: REQUIP PO SCH (21:05)
[2017-10-26] MEDS: SYNTHROID PO SCH (05:57)
[2017-10-26] MEDS: PROTONIX PO SCH ×2 (05:57→16:45)
[2017-10-26] MEDS: K-DUR PO SCH (09:21)
[2017-10-26] MEDS: PREDNISONE PO SCH (09:21)
[2017-10-26] MEDS: MINOXIDIL PO SCH ×2 (09:21→21:18)
[2017-10-26] MEDS: ASPIRIN EC PO SCH ×2 (09:21→16:45)
[2017-10-26] MEDS: LANOXIN PO SCH (09:22)
[2017-10-26] MEDS: SANTYL TP SCH (09:23)
[2017-10-26] MEDS: NYSTOP POWDER TP SCH ×2 (09:23→21:18)
[2017-10-26] MEDS: NYSTATIN CREAM TP SCH ×2 (09:23→21:18)
[2017-10-26] MEDS: LOVENOX SUBCUT SCH (09:24)
[2017-10-26] MEDS: BACTROBAN TP SCH ×2 (09:24→21:17)
[2017-10-26] MEDS: GLUCOPHAGE PO SCH (10:25)
[2017-10-26] MEDS: HUMULIN R SUBCUT PRN (16:44)
[2017-10-26] MEDS: NORCO 7.5-325 PO PRN (16:52)
[2017-10-26] MEDS: LEVEMIR SUBCUT SCH (21:15)
[2017-10-26] MEDS: ZOCOR PO SCH (21:18)
[2017-10-26] MEDS: REQUIP PO SCH (21:18)
[2017-10-27] MEDS: NORCO 7.5-325 PO PRN ×3 (02:06→20:45)
[2017-10-27] MEDS: SYNTHROID PO SCH (05:59)
[2017-10-27] MEDS: PROTONIX PO SCH ×2 (05:59→16:38)
[2017-10-27] MEDS: NYSTOP POWDER TP SCH ×2 (09:29→20:46)
[2017-10-27] MEDS: NYSTATIN CREAM TP SCH ×2 (09:29→20:46)
[2017-10-27] MEDS: LOVENOX SUBCUT SCH (09:30)
[2017-10-27] MEDS: BACTROBAN TP SCH ×2 (09:30→20:45)
[2017-10-27] MEDS: LANOXIN PO SCH (09:30)
[2017-10-27] MEDS: MINOXIDIL PO SCH ×2 (09:31→20:45)
[2017-10-27] MEDS: ASPIRIN EC PO SCH ×2 (09:31→16:38)
[2017-10-27] MEDS: K-DUR PO SCH (09:31)
[2017-10-27] MEDS: SANTYL TP SCH (11:30)
[2017-10-27] MEDS: ZOCOR PO SCH (20:45)
[2017-10-27] MEDS: REQUIP PO SCH (20:45)
[2017-10-27] MEDS: LEVEMIR SUBCUT SCH (20:53)
[2017-10-28] MEDS: PROTONIX PO SCH ×2 (05:56→17:00)
[2017-10-28] MEDS: SYNTHROID PO SCH (05:57)
[2017-10-28] MEDS: NORCO 7.5-325 PO PRN ×2 (05:58→20:49)
[2017-10-28] MEDS ORDERED: LASIX IVP ONE (08:25)
[2017-10-28] MEDS: LANOXIN PO SCH (09:09)
[2017-10-28] MEDS: BACTROBAN TP SCH ×2 (09:10→20:55)
[2017-10-28] MEDS: ASPIRIN EC PO SCH ×2 (09:10→17:00)
[2017-10-28] MEDS: MINOXIDIL PO SCH ×2 (09:11→20:49)
[2017-10-28] MEDS: K-DUR PO SCH (09:11)
[2017-10-28] MEDS: NYSTOP POWDER TP SCH ×2 (09:14→20:51)
[2017-10-28] MEDS: NYSTATIN CREAM TP SCH ×2 (09:14→20:50)
[2017-10-28] MEDS: SANTYL TP SCH (12:23)
--- NOTE | 2017-10-28 13:27 | PCM.PROG ---
Attending Provider: ATTENDING PROVIDER: Dr. PATRICIA PICKARD This patient is seen with Lacey Gipson, Nurse Practitioner. DATE OF SERVICE: 10/28/17 SUBJECTIVE: This 67 year old WHITE/ F was hospitalized 10/23/17. The patient is lying in bed, alert. She is pale, weak, mildly short of breath. Hemoglobin dropped to 7.4 today. The patient reports no blood in stool. REVIEW OF SYSTEMS: CONSTITUTIONAL: Positive for weakness. Pallor positive. No night sweats. No malaise, lethargy. No fever or chills. HEENT: Eyes: No visual changes. No eye pain. No eye discharge. ENT: No runny nose. No epistaxis. No sinus pain. No odynophagia. No congestion. RESPIRATORY: No cough, no congestion. No hemoptysis. Shortness of breath. CARDIOVASCULAR: No angina symptoms. No CHF symptoms. No atypical chest pain for CAD. No palpitations. No orthopnea.. GASTROINTESTINAL: No abdominal pain. No nausea or vomiting. No diarrhea or constipation. No hematemesis. No hematochezia. GENITOURINARY: No urgency. No frequency. No dysuria. No hematuria. No obstructive symptoms. No discharge. No pain. No significant abnormal bleeding. MUSCULOSKELETAL: No musculoskeletal pain; no joint swelling. NEUROLOGICAL: Awake, alert, oriented to time, place and person. No headache. No neck pain. No syncope. No seizures. No dizziness. PSYCHIATRIC: Not anxious. No depression. No suicidal thoughts. No homicidal thoughts. SKIN: No rash. No lesions. ENDOCRINE: No unexplained weight loss. No weight gain. HEMATOLOGIC/LYMPHATIC: No anemia. No purpura. No petechiae. No prolonged or excessive bleeding. No palpable lymph nodes. PHYSICAL EXAMINATION: GENERAL: The patient is awake, alert and oriented, lying/sitting in bed in no distress. VITAL SIGNS: Temperature 98.3 F, Pulse 68, Respiratory Rate 20, BP 110/60, Pulse Ox 97% HEENT: Head normocephalic, atraumatic. Eyes: Extraocular muscles are intact. Pupils are equal, round and reactive to light and accommodation. Ears: No lesions. Nose appeared normal. Throat: No exudate or erythema. NECK: Supple. No JVD, no carotid bruit. No lymphadenopathy or thyromegaly. LUNGS: Diminished breath sounds bilaterally. Clear to auscultation. Percussion note normal. Chest symmetrical. HEART: Irregular heart rate consistent with atrial fibrillation. S1, S2, no S3. No murmurs. No cyanosis or clubbing. No ascites. Pulses: Dorsalis pedis and posterior tibial pulses +1 to +2 both sides. ABDOMEN: Soft. Non-tender. Bowel sounds active. No CVA tenderness. No rigidity. No mass felt. EXTREMITIES: No edema. Full range of motion of all extremities, equal. NEUROLOGIC: No focal deficit. Cranial nerves II through XII are grossly intact. No headache, no double vision or headache. SKIN: Not dry. Intact. Turgor-normal. LYMPHATIC: No palpable lymph nodes/no lymphedema. MUSCULOSKELETAL: Normal joints with no swelling. Muscle tone is normal. LAB REVIEW: 10/28/17 05:08 10/28/17 05:08 10/28/17 05:08: Sodium 143, Potassium 4.1, Chloride 107, Carbon Dioxide 29, Anion Gap 11.1, BUN 28 H, Creatinine 1.43 H, Estimated GFR (MDRD) 36.00, BUN/ Creatinine Ratio 19.58, Glucose 70 L, Calcium 8.1 L, Total Bilirubin 0.3, AST 14 L, ALT 9 L, Alkaline Phosphatase 74, Total Protein 5.8, Albumin 1.8 L, Globulin 4.0, Albumin/Globulin Ratio 0.45 10/28/17 05:08: WBC 5.78, RBC 2.47 L, Hgb 7.4 L, Hct 23.7 L, MCV 96.0 D, MCH 30.0, MCHC 31.2 L, RDW Coeff of Taylor 19.9 H, Plt Count 267, Immature Gran % (Auto ) 4.3, Neut % (Auto) 44.4, Lymph % (Auto) 40.1, Coffee % (Auto) 8.3, Eos % (Auto) 2.2, Baso % (Auto) 0.7, Immature Gran # (Auto) 0.3, Neut # 2.6, Lymph # 2.3, Coffee # 0.5, Eos # 0.1, Baso # 0.0 10/27/17 05:00: Sodium 141, Potassium 4.4, Chloride 106, Carbon Dioxide 30, Anion Gap 9.4, BUN 29 H, Creatinine 1.36 H, Estimated GFR (MDRD) 39.00, BUN/ Creatinine Ratio 21.32, Glucose 104, Calcium 8.0 L, Total Bilirubin < 0.3, AST 12 L, ALT 9 L, Alkaline Phosphatase 64, Total Protein 5.5 L, Albumin 1.7 L, Globulin 3.8, Albumin/Globulin Ratio 0.45 10/27/17 05:00: WBC 6.31, RBC 2.59 L, Hgb 7.9 L, Hct 26.3 L, MCV 101.5 H, MCH 30.5, MCHC 30.0 L, RDW Coeff of Taylor 19.9 H, Plt Count 294, Immature Gran % (Auto ) 3.5, Neut % (Auto) 47.0, Lymph % (Auto) 38.2, [place] % (Auto) 8.7, Eos % (Auto) 2.1, Baso % (Auto) 0.5, Immature Gran # (Auto) 0.2, Neut # 3.0, Lymph # 2.4, Coffee # 0.6, Eos # 0.1, Baso # 0.0 ASSESSMENT: 1. ANEMIA 1. GENERALIZED WEAKNESS 2. RESOLVING SEPSIS DUE TO E. COLI 3. ATRIAL FIBRILLATION 4. OBESITY 5. COPD 6. DM TYPE 2 7. HYPERTENSION 8. DYSLIPIDEMIA 9. HEAD LICE, RESOLVED PLAN: 1. PRBCs 2 units with Lasix 20 mg IV between units 2. Stool for occult blood 3. Hold Lovenox Plan and coordination of the patient's care discussed in the presence of Patrol Sergeant and nurse. CONDITION: Stable SCRIBED BY: JOSE CARLOS ORTEGA Latin American Studies Professor scribed while in presence of service performed by Dr. Pickard/Lacey Gipson APRN on 10/28/17 ([id number])
[2017-10-28] MEDS: HUMULIN R SUBCUT PRN ×2 (17:27→20:48)
[2017-10-28] MEDS: LEVEMIR SUBCUT SCH (20:48)
[2017-10-28] MEDS: REQUIP PO SCH (20:50)
[2017-10-28] MEDS: ZOCOR PO SCH (20:50)
[2017-10-29] MEDS: PROTONIX PO SCH ×2 (05:48→17:17)
[2017-10-29] MEDS: SYNTHROID PO SCH (05:48)
[2017-10-29] MEDS ORDERED: MILK OF MAGNESIA PO PRN (07:57)
[2017-10-29] MEDS: NORCO 7.5-325 PO PRN ×2 (09:32→17:36)
[2017-10-29] MEDS: LANOXIN PO SCH (09:33)
[2017-10-29] MEDS: MINOXIDIL PO SCH ×2 (09:33→20:29)
[2017-10-29] MEDS: ASPIRIN EC PO SCH ×2 (09:33→17:16)
[2017-10-29] MEDS: NYSTATIN CREAM TP SCH ×2 (09:33→20:28)
[2017-10-29] MEDS: K-DUR PO SCH (09:33)
[2017-10-29] MEDS: NYSTOP POWDER TP SCH ×2 (09:34→20:29)
[2017-10-29] MEDS: BACTROBAN TP SCH ×2 (09:34→20:28)
--- NOTE | 2017-10-29 09:47 | PN ---
DATE OF VISIT: 10/28/17 SUBJECTIVE: The patient has a decubitus ulcer in the coccyx. The ulcer has a better granulation tissue and less amount of necrotic tissue. I did see any 4x4 placed on it. It needs to have one. I will tell the nurses again to put a 4x4 at least three times a day. I'm certain as to how this would heal. It would need a very meticulous care. This patient's buttock are flopping over that even if she is on her side the wound edges still approximated. It looks better however today. MTDTraci
--- NOTE | 2017-10-29 11:28 | HP ---
DATE OF SERVICE: 10/24/17 (ADMITTED 10/23/17 FOR SWING BED) HISTORY OF PRESENT ILLNESS: This is a 67-year-old white female who was discharged from [facility] under Dr. Le's care where she had had E. coli, sepsis, bowel perforation and she has come here for physical therapy and rehabilitation. PAST MEDICAL HISTORY: Hypothyroidis Hypokalemia Chronic kidney disease COPD Obesity Diabetes mellitus Type 2 GERD Dyslipidemia Atrial fibrillation Hypertension Restless leg syndrome PAST SURGICAL HISTORY: Tubal ligation Kidney stent placement, 11/13 REVIEW OF SYSTEMS: CONSTITUTIONAL: Fatigue, weakness. No night sweats. No malaise, lethargy. No fever or chills. HEENT: Eyes: No visual changes. No eye pain. No eye discharge. ENT: No runny nose. No epistaxis. No sinus pain. No sore throat. No odynophagia. No ear pain. No congestion. RESPIRATORY: No cough, no congestion. No hemoptysis. No shortness of breath. CARDIOVASCULAR: No angina symptoms. No CHF symptoms. No atypical chest pain for CAD. No palpitations. No orthopnea. GASTROINTESTINAL: No abdominal pain. No nausea or vomiting. No diarrhea or constipation. No hematemesis. No hematochezia. GENITOURINARY: No urgency. No frequency. No dysuria. No hematuria. No obstructive symptoms. No discharge. No pain. No significant abnormal bleeding. MUSCULOSKELETAL: No musculoskeletal pain. No joint swelling. No arthritis. NEUROLOGICAL: No headache. No neck pain. No syncope. No seizures. No dizziness. PSYCHIATRIC: Not anxious. No depression. No suicidal thoughts. No homicidal thoughts. SKIN: No rash. No lesions. No wounds. ENDOCRINE: No unexplained weight loss. No weight gain. HEMATOLOGIC/LYMPHATIC: No anemia. No purpura. No petechiae. No prolonged or excessive bleeding. No palpable lymph nodes. PERSONAL/FAMILY/SOCIAL HISTORY: When the patient went to [facility] she was currently residing with her sister otherwise she lives at home alone by herself. She is a nonsmoker. No alcohol or ilicit drug use. MEDICATIONS: Synthroid 200 mcg Aspirin 81 mg Peyton 7.5 q.8 p.r.n. Potassium Chloride 20 mEq Albuterol nebs p.r.n. Levemir 30 units at bedtime Metformin 1000 b.i.d. Protonix 40 mg b.i.d. Zocor 10 mg at bedtime Digoxin 125 mcg daily Minoxidil 2.5 mg b.i.d. Requip 0.5 mg at bedtime ALLERGIES: AMOXICILLIN, AZITHROMYCIN, CLARITHROMYCIN, MACROLIDES PHYSICAL EXAMINATION: VITAL SIGNS: Temperature 98, heart rate 107, respirations 17, BP 135/85, pulse ox 92% on room air. HEENT: Head normocephalic, atraumatic. Eyes: Extraocular muscles are intact. Pupils are equal, round and reactive to light and accommodation. Ears: No lesions. Nose appeared normal. Throat: No exudate or erythema. NECK: Supple. No JVD, no carotid bruit. No lymphadenopathy or thyromegaly. LUNGS: Diminished breath sounds bilaterally. Clear to auscultation. Percussion note normal. Chest symmetrical. HEART: Irregular rate and rhythm due to atrial fibrillation. S1, S2, no S3. No murmurs. No cyanosis or clubbing. No ascites. Pulses: Dorsalis pedis and posterior tibial pulses +1 to +2 both sides. ABDOMEN: Soft. Nontender. Bowel sounds active. No CVA tenderness. No mass felt. EXTREMITIES: Trace pedal edema. Full range of motion of all extremities, equal. NEUROLOGIC: No focal deficit. Cranial nerves II through XII are grossly intact. No headache, no double vision or headache. SKIN: Not dry. Intact. Turgor - normal. LYMPHATIC: No palpable lymph nodes/no lymphedema. MUSCULOSKELETAL: Normal joints with no swelling. Muscle tone is normal. LAB VALUES: Hemoglobin 9.3, hematocrit 30.3, platelets 247, white count 5.77. Sodium 144, potassium 4.5, BUN 15, creatinine 1.30, glucose 52. ASSESSMENT: 1. ATRIAL FIBRILLATION 2. HYPERTENSION 3. OBESITY 4. RECENT GI BLEED WHICH IS HEALING 5. ANEMIA 6. RECENT SEPSIS DUE TO E. COLI 7. DIABETES MELLITUS TYPE 2 8. GENERALIZED WEAKNESS 9. ATRIAL FIBRILLATION 10. RECENT HYDRONEPHROSIS DUE TO OBSTRUCTION OF URETER WHICH HAS RESOLVED 11. ACUTE KIDNEY INJURY WHICH IS IMPROVING PLAN: 1. Will admit to swing bed 2. CBC, CMP daily 3. Chest x-ray 4. EKG 5. Continue medications 6. Start on Lovenox 80 mg subcut daily 7. Digoxin level 8. Physical and occupational therapy 9. ADA diet 10. Will follow closely TIME SPENT: More than 70 minutes. LICO
[2017-10-29] MEDS: SANTYL TP SCH (13:00)
--- NOTE | 2017-10-29 15:02 | CT ---
EXAM: CT of the abdomen pelvis without contrast History: Abdominal pain, follow-up gastrointestinal bleeding, anemia. Comparison: Abdominal MRI 03/30/2014, CT abdomen pelvis 08/13/2013 Technique: Multiplanar CT images through the abdomen pelvis were obtained without the administration of IV contrast Findings: Partially visualized bilateral breast implants. There is suspected intracapsular rupture involving the right breast implant. Heart is enlarged. Interlobular septal thickening seen at the simone ng bases. No acute osseous abnormalities. Severe degenerative disc disease at L5-S1. No discrete ga llstones identified by CT. Atherosclerotic vascular calcifications. The liver is mildly enlarged. No focal liver or splenic lesions. No peripancreatic inflammation. Right adrenal gland is unremarka ble. Stable left adrenal adenoma. Left ureteral stent is seen in place. There is mild left hydrone phrosis. There are several calcifications seen within the left kidney with the largest measuring 3 m m. There are calcifications seen along the course of the proximal and mid left ureteral stent. There is moderate right hydronephrosis and hydroureter with 1 cm calculus in the proximal right urete r. No bladder wall thickening. Presacral edema is mild. No bowel obstruction. Scattered colonic st ool. No free air. No ascites. No retroperitoneal hematoma. Atrophic uterus. Impression: 1. 1 cm calculus within the proximal right ureter causing moderate right hydronephrosis. 2. Left ureteral stent with mild left hydronephrosis. There are several small calcifications seen al alisson the course of the left ureteral stent. 3. Left nephrolithiasis. 4. No retroperitoneal hematoma. 5. Cardiomegaly. 6. Stable benign left adrenal adenoma.
[2017-10-29] MEDS: LEVEMIR SUBCUT SCH (20:27)
[2017-10-29] MEDS: REQUIP PO SCH (20:29)
[2017-10-29] MEDS: ZOCOR PO SCH (20:29)
[2017-10-30] MEDS: NORCO 7.5-325 PO PRN ×3 (01:04→18:11)
[2017-10-30] MEDS: SYNTHROID PO SCH (05:52)
[2017-10-30] MEDS: PROTONIX PO SCH ×2 (05:52→18:01)
[2017-10-30] MEDS: LANOXIN PO SCH (09:36)
[2017-10-30] MEDS: MINOXIDIL PO SCH ×2 (09:36→20:42)
[2017-10-30] MEDS: K-DUR PO SCH (09:36)
[2017-10-30] MEDS: NYSTATIN CREAM TP SCH ×2 (09:37→20:41)
[2017-10-30] MEDS: ASPIRIN EC PO SCH ×2 (09:37→18:01)
[2017-10-30] MEDS: BACTROBAN TP SCH ×2 (09:37→20:41)
[2017-10-30] MEDS: NYSTOP POWDER TP SCH ×2 (09:38→20:41)
--- NOTE | 2017-10-30 13:30 | CONS ---
DATE OF CONSULTATION: 10/27/15 REASON FOR CONSULTATION: HISTORY OF PRESENT ILLNESS: I had been making rounds on this patient in the absence of Dr. Hollins. He did come in this evening and I discussed that with him. I told him that the patient does have Staph aureus methicillin resistant and the ulceration of the coccyx. I also did advise him that the patient wanted to go home and continue her physical therapy at home. Because of the presents of the coccygeal ulcer he did ask me to see the patient with regards to this problem. The patient is then seen today for that. The patient is alert and oriented and did advised her of what we are trying to do. We are trying to look at the ulcer in the coccyx as well as in the left thigh. The ulcer in the coccyx is big measuring about 5cm in length and 2cm in it's widest diameter. The skin folds together even when she is even on her left and right side because of the tissue configuration. This is being treated with Bactroban for now. I did inform the nurse to put 4x4 that is dry right on the ulcer to prevent approximation of the tissue edges. This should be done about three times a day which helps with the debridement. The lesion in the anterior medial thigh is very small and superficial. I do believe that it would heal on itself own. The patient was advised of the cause of the ulceration. The patient seemed to understand the importance for her to be on her side. ASSESSMENT: 1. Decubitus ulcer, coccyx 2x5 cm MTDD
[2017-10-30] MEDS: SANTYL TP SCH (13:47)
--- NOTE | 2017-10-30 13:47 | CONS ---
DATE OF CONSULTATION: 10/29/17 REASON FOR CONSULTATION: HISTORY OF PRESENT ILLNESS: The patient is seen by me because of the decubitus ulcer. She is also is in the coccyx and it is quite long about 5cm. This patient probably should be followed by Wound Care when she is discharged from the facility and it is probably possible since the patient doesn't live very far from the hospital. Wound care beginning tomorrow if that is possible. Wound bed looks electrode cleaner and hopefully it will heal. This patient has severe anemia and severe albuminemia. Her TSH is very high at 41.332. She is already receiving 200mcg of Levothyroxine. MTDD
[2017-10-30] MEDS: HUMULIN R SUBCUT PRN (20:42)
[2017-10-30] MEDS: ZOCOR PO SCH (20:42)
[2017-10-30] MEDS: LEVEMIR SUBCUT SCH (20:42)
[2017-10-30] MEDS: REQUIP PO SCH (20:42)
[2017-10-31] MEDS: NORCO 7.5-325 PO PRN ×3 (02:05→21:08)
[2017-10-31] MEDS: SYNTHROID PO SCH (05:31)
[2017-10-31] MEDS: PROTONIX PO SCH ×2 (05:31→17:22)
[2017-10-31] MEDS: LANOXIN PO SCH (09:12)
[2017-10-31] MEDS: ASPIRIN EC PO SCH ×2 (09:12→17:22)
[2017-10-31] MEDS: K-DUR PO SCH (09:12)
[2017-10-31] MEDS: BACTROBAN TP SCH ×2 (09:13→21:04)
[2017-10-31] MEDS: MINOXIDIL PO SCH ×2 (09:13→20:59)
[2017-10-31] MEDS: NYSTATIN CREAM TP SCH ×2 (09:14→21:04)
[2017-10-31] MEDS: NYSTOP POWDER TP SCH ×2 (09:14→21:04)
--- NOTE | 2017-10-31 09:45 | PCM.PROG ---
Attending Provider: ATTENDING PROVIDER: Dr. PATRICIA HOLLINS This patient is seen with Lacey Gipson, Nurse Practitioner. DATE OF SERVICE: 10/31/17 SUBJECTIVE: This 67 year old WHITE/ F was hospitalized 10/23/17. The patient is lying in bed, alert. She states she is ready to go home. The patient has been discharged from PT. The patient is agreeable to PT/OT at home. The patient has been off of blood thinners due to anemia. Despite atrial fib has had two positive occult blood. REVIEW OF SYSTEMS: CONSTITUTIONAL: Weakness. No night sweats. No malaise, lethargy. No fever or chills. HEENT: Eyes: No visual changes. No eye pain. No eye discharge. ENT: No runny nose. No epistaxis. No sinus pain. No odynophagia. No congestion. RESPIRATORY: No cough, no congestion. No hemoptysis. No shortness of breath. CARDIOVASCULAR: No angina symptoms. No CHF symptoms. No atypical chest pain for CAD. No palpitations. No orthopnea.. GASTROINTESTINAL: No abdominal pain. No nausea or vomiting. No diarrhea or constipation. No hematemesis. No hematochezia. GENITOURINARY: No urgency. No frequency. No dysuria. No hematuria. No obstructive symptoms. No discharge. No pain. No significant abnormal bleeding. MUSCULOSKELETAL: No musculoskeletal pain; no joint swelling. NEUROLOGICAL: Awake, alert, oriented to time, place and person. No headache. No neck pain. No syncope. No seizures. No dizziness. PSYCHIATRIC: Not anxious. No depression. No suicidal thoughts. No homicidal thoughts. SKIN: No rash. No lesions. Wound on buttock. ENDOCRINE: No unexplained weight loss. No weight gain. HEMATOLOGIC/LYMPHATIC: No anemia. No purpura. No petechiae. No prolonged or excessive bleeding. No palpable lymph nodes. PHYSICAL EXAMINATION: GENERAL: The patient is awake, alert and oriented, lying in bed in no distress. VITAL SIGNS: Temperature 97.3 F, Pulse 83, Respiratory Rate 16, BP 111/68, Pulse Ox 98% HEENT: Head normocephalic, atraumatic. Eyes: Extraocular muscles are intact. Pupils are equal, round and reactive to light and accommodation. Ears: No lesions. Nose appeared normal. Throat: No exudate or erythema. NECK: Supple. No JVD, no carotid bruit. No lymphadenopathy or thyromegaly. LUNGS: Clear to auscultation. Percussion note normal. Chest symmetrical. HEART: Irregular heart rate. S1, S2, no S3. No murmurs. No cyanosis or clubbing. No ascites. Pulses: Dorsalis pedis and posterior tibial pulses +1 to +2 both sides. ABDOMEN: Soft. Non-tender. Bowel sounds active. No CVA tenderness. No mass felt. EXTREMITIES: No edema. Full range of motion of all extremities, equal. NEUROLOGIC: No focal deficit. Cranial nerves II through XII are grossly intact. No headache, no double vision or headache. SKIN: [place], warm and dry. Intact. Turgor-normal. Wound on buttock. LYMPHATIC: No palpable lymph nodes/no lymphedema. MUSCULOSKELETAL: Normal joints with no swelling. Muscle tone is normal. LAB REVIEW: 10/31/17 04:30 10/31/17 04:30 10/31/17 04:30: Sodium 142, Potassium 4.3, Chloride 107, Carbon Dioxide 28, Anion Gap 11.3, BUN 23 H, Creatinine 1.25, Estimated GFR (MDRD) 42.00, BUN/ Creatinine Ratio 18.40, Glucose 84, Calcium 8.3, Total Bilirubin 0.3, AST 15, ALT 10 L, Alkaline Phosphatase 74, Total Protein 5.9, Albumin 2.0 L, Globulin 3.9, Albumin/Globulin Ratio 0.51 10/31/17 04:30: WBC 7.11, RBC 2.98 L, Hgb 8.9 L, Hct 28.5 L, MCV 95.6, MCH 29.9 , MCHC 31.2 L, RDW Coeff of Taylor 19.9 H, Plt Count 238 D, Immature Gran % (Auto ) 3.5, Neut % (Auto) 58.7, Lymph % (Auto) 28.6, [place] % (Auto) 6.8, Eos % (Auto) 1.7, Baso % (Auto) 0.7, Immature Gran # (Auto) 0.3, Neut # 4.2, Lymph # 2.0, [place] # 0.5, Eos # 0.1, Baso # 0.1 10/30/17 04:30: TSH 11.332 H D, Free T4 0.80 ASSESSMENT: 1. ANEMIA 1. GENERALIZED WEAKNESS 2. RESOLVING SEPSIS DUE TO E. COLI 3. ATRIAL FIBRILLATION 4. OBESITY 5. COPD 6. DM TYPE 2 7. HYPERTENSION 8. DYSLIPIDEMIA 9. HEAD LICE, RESOLVED PLAN: 1. Anticipate discharge home today 2. Home Health for nursing assessment, PT/OT and wound care 3. Digoxin level before discharge 4. Will check on followup appointments with both Dr. Herring and Dr. Snowden Plan and coordination of the patient's care discussed in the presence of Vp Cardiovascular and nurse. CONDITION: Stable SCRIBED BY: Tatyana DURÁN scribed while in presence of service performed by Dr. Hollins/Lacey Gipson APRN on 10/31/17 ([id number])
--- NOTE | 2017-10-31 10:35 | PN ---
DATE OF VISIT: 10/25/17 67 year old female patient of Dr. Hollins's is seen on rounds today. The patient is alert and responsive. This patient has very significant problems. The patient is now on Transitional Care. The patient is able to eat and does still have some abdominal discomfort. She is not short of breath. LUNGS: Clear to auscultation. HEART: Audible and with good tones. ABDOMEN: Some tenderness, but bowel sounds are active. The patient's condition seems to be stable at this time. LICO
[2017-10-31] MEDS: SANTYL TP SCH (12:47)
[2017-10-31] MEDS: ZOCOR PO SCH (20:59)
[2017-10-31] MEDS: REQUIP PO SCH (20:59)
[2017-10-31] MEDS: HUMULIN R SUBCUT PRN (22:01)
[2017-10-31] MEDS: LEVEMIR SUBCUT SCH (22:02)
[2017-11-01] MEDS: PROTONIX PO SCH (05:49)
[2017-11-01] MEDS: SYNTHROID PO SCH (05:49)
[2017-11-01 06:02] VITALS: BP 101/68; TEMP 98
[2017-11-01] MEDS: LANOXIN PO SCH (09:31)
[2017-11-01] MEDS: ASPIRIN EC PO SCH (09:31)
[2017-11-01] MEDS: K-DUR PO SCH (09:31)
[2017-11-01] MEDS: MINOXIDIL PO SCH (09:32)
[2017-11-01] MEDS: NYSTATIN CREAM TP SCH (09:35)
[2017-11-01] MEDS: BACTROBAN TP SCH (09:37)
[2017-11-01] MEDS: NORCO 7.5-325 PO PRN (09:50)
--- NOTE | 2017-11-01 10:20 | PCM.PROG ---
Attending Provider: ATTENDING PROVIDER: Dr. PATRICIA HOLLINS This patient is seen with Lacey Gipson, Nurse Practitioner. DATE OF SERVICE: 11/01/17 SUBJECTIVE: This 67 year old WHITE/ F was hospitalized 10/23/17. The patient is alert, lying in bed. She states she is ready to go home. Today has been discharged from . Case management has arranged followup appointment with Dr. Thompson/Sp and Dr. Herring. The patient is refusing labs today. Yesterday hemoglobin was stable. REVIEW OF SYSTEMS: CONSTITUTIONAL: Weakness and fatigue. No night sweats. No malaise, lethargy. No fever or chills. HEENT: Eyes: No visual changes. No eye pain. No eye discharge. ENT: No runny nose. No epistaxis. No sinus pain. No odynophagia. No congestion. RESPIRATORY: No cough, no congestion. No hemoptysis. No shortness of breath. CARDIOVASCULAR: No angina symptoms. No CHF symptoms. No atypical chest pain for CAD. No palpitations. No orthopnea.. GASTROINTESTINAL: No abdominal pain. No nausea or vomiting. No diarrhea or constipation. No hematemesis. No hematochezia. GENITOURINARY: No urgency. No frequency. No dysuria. No hematuria. No obstructive symptoms. No discharge. No pain. No significant abnormal bleeding. MUSCULOSKELETAL: No musculoskeletal pain; no joint swelling. NEUROLOGICAL: Awake, alert, oriented to time, place and person. No headache. No neck pain. No syncope. No seizures. No dizziness. PSYCHIATRIC: Not anxious. No depression. No suicidal thoughts. No homicidal thoughts. SKIN: No rash. No lesions. Coccygeal wound. ENDOCRINE: No unexplained weight loss. No weight gain. HEMATOLOGIC/LYMPHATIC: No anemia. No purpura. No petechiae. No prolonged or excessive bleeding. No palpable lymph nodes. PHYSICAL EXAMINATION: GENERAL: The patient is awake, alert and oriented, lying in bed in no distress. VITAL SIGNS: Temperature 98.0 F, Pulse 102, Respiratory Rate 16, BP 101/68, Pulse Ox 97% HEENT: Head normocephalic, atraumatic. Eyes: Extraocular muscles are intact. Pupils are equal, round and reactive to light and accommodation. Ears: No lesions. Nose appeared normal. Throat: No exudate or erythema. NECK: Supple. No JVD, no carotid bruit. No lymphadenopathy or thyromegaly. LUNGS: Diminished breath sounds. Clear to auscultation. Percussion note normal. Chest symmetrical. HEART: Irregular heart rate consistent with atrial fibrillation. S1, S2, no S3. No murmurs. No cyanosis or clubbing. No ascites. Pulses: Dorsalis pedis and posterior tibial pulses +1 to +2 both sides. ABDOMEN: Soft. Non-tender. Bowel sounds active. No CVA tenderness. No mass felt. EXTREMITIES: No edema. Full range of motion of all extremities, equal. NEUROLOGIC: No focal deficit. Cranial nerves II through XII are grossly intact. No headache, no double vision or headache. SKIN: Warm and dry. Stage 2 decubitus on coccyx. Turgor-normal. LYMPHATIC: No palpable lymph nodes/no lymphedema. MUSCULOSKELETAL: Normal joints with no swelling. Muscle tone is normal. LAB REVIEW: 10/31/17 04:30 10/31/17 04:30 10/31/17 04:30: Digoxin 0.54 L ASSESSMENT: 1. ANEMIA 1. GENERALIZED WEAKNESS 2. RESOLVING SEPSIS DUE TO E. COLI 3. ATRIAL FIBRILLATION 4. OBESITY 5. COPD 6. DM TYPE 2 7. HYPERTENSION 8. DYSLIPIDEMIA 9. HEAD LICE, RESOLVED 10. STAGE 2 DECUBITUS ON COCCYX 11. RECENT DIVERTICULUM RUPTURE 12. POSITIVE STOOL FOR OCCULT BLOOD PLAN: 1. Discharge home 2. PT/OT 3. Home Health will see for PT/OT and nursing care. The patient is agreeable. 4. The patient will ge going home with the sister. 5. No blood thinners at this time due to recent blood loss, GI bleed. The patient understands the risks. Plan and coordination of the patient's care discussed in the presence of Patent Paralegal and nurse. CONDITION: STABLE SCRIBED BY: JOSE CARLOS ORTEGA Websphere Developer scribed while in presence of service performed by Dr. Hollins/Lacey Gipson APRN on 11/01/17 ([id number])
--- NOTE | 2017-11-01 10:55 | PN ---
DATE OF SERVICE: 10/28/17 SUBJECTIVE: The patient was seen on 10/23/17 when she was admitted to swing bed. The patient was transferred from [facility] under Dr. Le. She was treated there for sepsis which occurred from ureteric stone, which has been treated and she has a stent now treated by Dr. Herring. Her creatinine and BUN are normal. The patient had acute renal failure. The patient's other problems are CHF, COPD, obesity. The patient is noncompliant. The patient is here in the swing bed for physical therapy and ambulation. PHYSICAL EXAMINATION: HEENT: Head normocephalic, atraumatic. Eyes: Extraocular muscles are intact. Pupils are equal, round and reactive to light and accommodation. Ears: No lesions. Nose appeared normal. Throat: No exudate or erythema. NECK: Supple. No JVD, no carotid bruit. No lymphadenopathy or thyromegaly. LUNGS: Clear to auscultation. Percussion note normal. Chest symmetrical. HEART: S1, S2, no S3. No murmurs. No cyanosis or clubbing. No ascites. Pulses: Dorsalis pedis and posterior tibial pulses +1 to +2 both sides. ABDOMEN: Soft. Nontender. Bowel sounds active. No CVA tenderness. No mass felt. EXTREMITIES: No edema. Full range of motion of all extremities, equal. NEUROLOGIC: No focal deficit. Cranial nerves II through XII are grossly intact. No headache, no double vision or headache. SKIN: Not dry. Intact. Turgor - normal. LYMPHATIC: No palpable lymph nodes/no lymphedema. MUSCULOSKELETAL: Normal joints with no swelling. Muscle tone is normal. TIME SPENT: More than 30 minutes. Plan and coordination of the patient's care discussed in the presence of nurse. LICO
--- NOTE | 2017-11-01 11:18 | PN ---
DATE OF SERVICE: 10/27/17 SUBJECTIVE: The patient was seen in the swing bed. The patient is doing better, wants to go home. The patient has decubitus so we will give consultation to Dr. Tabares. The patient is up and about, going to the bathroom with little help. The patient is short of breath on exertion but that is the way she has been. PHYSICAL EXAMINATION: GENERAL: The patient is oriented to time, place and person. HEENT: Head normocephalic, atraumatic. Eyes: Extraocular muscles are intact. Pupils are equal, round and reactive to light and accommodation. Ears: No lesions. Nose appeared normal. Throat: No exudate or erythema. NECK: Supple. No JVD, no carotid bruit. No lymphadenopathy or thyromegaly. LUNGS: Clear to auscultation. Percussion note normal. Chest symmetrical. HEART: S1, S2, no S3. No murmurs. No cyanosis or clubbing. No ascites. Pulses: Dorsalis pedis and posterior tibial pulses +1 to +2 both sides. ABDOMEN: Soft. Nontender. Bowel sounds active. No CVA tenderness. No mass felt. EXTREMITIES: No edema. Full range of motion of all extremities, equal. NEUROLOGIC: No focal deficit. Cranial nerves II through XII are grossly intact. No headache, no double vision or headache. SKIN: Not dry. Intact. Turgor - normal. LYMPHATIC: No palpable lymph nodes/no lymphedema. MUSCULOSKELETAL: Normal joints with no swelling. Muscle tone is normal. ASSESSMENT: Cardiovascular and respiratory status stable. PLAN: Decubitus prevention and treatment part discussed with her. CONDITION: Stable TIME SPENT: More than 30 minutes. Plan and coordination of the patient's care discussed in the presence of nurse. LICO
--- NOTE | 2017-11-01 12:31 | CM.DICTOOL ---
ADMISSION: 10/23/17 21:10 DISCHARGE: 11/01/17 DATE OF SERVICE: 11/01/17 FINAL DIAGNOSIS DECLINE IN FUNCTION SECONDARY TO MULTIPLE MEDICAL ISSUES SEPSIS DUE TO E-COLI (DR. Simon MORENO) ANEMIA (TRANSFUSED 2 U PRBC'S 09/23/17),(2 U PRBC'S, 10/12/17),(3 U PRBC'S, ) (2 U PRBC'S 10/28/17) DECUB TO COCCYX, STAGE II- MRSA POSITIVE BOWEL PERFORATION (DIVERTICULAR PERFORMATION-DR. PITTMAN) CONTAINED PERFORATION OF THE DESCENDING COLON CT 10/06/17-[facility]) GASTROINTESTINAL HEMORRHAGE ASSOCIATED WITH PEPTIC ULCER, (DR. RILEY, 10/13/17) ESOPHAGOGASTRODUODENOSCOPY (DR. JANICE RILEY, 10/14/17) NONBLEEDING GASTRIC AND DUODENAL ULCERS (DR. JANICE RILEY, 10/14/17) MELENA OROPHARYNGEAL DYSPHAGIA, RESOLVED DECUBITUS ULCERS, STAGE II COCCYX AND LEFT INNER THIGH PEDICULOSIS CAPITIS, TREATED WITH NIX 10/21/17, 10/22/17 [facility] URETERAL STONES-MID DISTAL LEFT URETER 8 CM (DR. MILLER) RETROGRADE URETEROPYELOGRAM WITH STENT PLACEMENT (DR. MILLER, 10/21/17) RESPIRATORY FAILURE, 09/23/17 [facility] PNEUMONIA, 09/23/17 [facility] INFLUENZA B, 09/23/17 [facility] CHRONIC KIDNEY DISEASE WITH ACUTE KIDNEY INJURY ([facility] 10/21/17) OBESITY, BMI 43.1 DM, TYPE 2 CONGESTIVE HEART FAILURE DILATED CARDIOMYOPATHY CHRONIC LUNG DISEASE (RESTRICTIVE) HYPERTENSION DYSLIPIDEMIA HYPOTHYROIDISM ATRIAL FIBRILLATION (DIG LEVEL 0.41 ON 09/23/17) ARTHRITIS LUMBAR RADICULOPATHY GRAVES DISEASE HISTORY OF KIDNEY STONES TUBAL LIGATION KIDNEY STENT PLACEMENT, 11/13 LAST TRANSTHORACIC ECHO, (DR. RICE, 10/05/17) LEFT VENTRICULAR WALL THICKNESS CONSISTENT WITH MODERATE CONCENTRIC HYPERTROPHY LVEF 60% SMALL, LESS THAN 1%, PERICARDIAL EFFUSION MODERATE MITRAL VALVE REGURG MILD PULMONARY HYPERTENSION PFT, 01/29/17 MODERATE RESTRICTIVE COPD LAST VITALS Temp Pulse Resp BP Pulse Ox 98.0 F 102 H 16 101/68 93 L 11/01/17 06:00 11/01/17 06:00 11/01/17 06:00 11/01/17 06:00 11/01/17 10:00 ACTIVE HOME MEDICATIONS Acetaminophen/Hydrocodone Bitart ([place] 7.5-325) 1 tab PO Q8HR PRN PRN Reason: MODERATE PAIN Last Admin: 11/01/17 09:50 Dose: 1 tab Albuterol Sulfate (Albuterol 0.083% Neb) 1 vial NEB RTQ4H PRN PRN Reason: Wheezing Aspirin (Aspirin Ec) 81 mg PO BIDWM [facility] Last Admin: 11/01/17 09:31 Dose: 81 mg Collagenase (Santyl) 1 applic TP 1200 [facility] Last Admin: 10/31/17 12:47 Dose: 1 applic Digoxin (Lanoxin) 125 mcg PO DAILY [facility] Last Admin: 11/01/17 09:31 Dose: 125 mcg Insulin Detemir (Levemir) 25 unit SUBCUT BEDTIME [facility] (DECREASED FROM 30 UNITS ) Last Admin: 10/31/17 22:02 Dose: 25 unit Levothyroxine Sodium (Synthroid) 200 mcg PO QDAC [facility] Last Admin: 11/01/17 05:49 Dose: 200 mcg Magnesium Hydroxide (Milk Of Magnesia) 30 ml PO DAILY PRN PRN Reason: Constipation Last Admin: 10/29/17 09:33 Dose: 30 ml Minoxidil (Minoxidil) 2.5 mg PO BID [facility] Last Admin: 11/01/17 09:32 Dose: 2.5 mg Nystatin (Nystatin Cream) 1 applic TP BID [facility] Last Admin: 11/01/17 09:35 Dose: 1 applic Nystatin (Nystop Powder) 1 applic TP BID [facility] Last Admin: 10/31/17 21:04 Dose: 1 applic Pantoprazole Sodium (Protonix) 40 mg PO BIDAC [facility] Last Admin: 11/01/17 05:49 Dose: 40 mg Potassium Chloride (K-Dur) 20 meq PO DAILY [facility] Last Admin: 11/01/17 09:31 Dose: 20 meq Ropinirole HCl (Requip) 0.5 mg PO BEDTIME [facility] Last Admin: 10/31/17 20:59 Dose: 0.5 mg Simvastatin (Zocor) 10 mg PO BEDTIME [facility] Last Admin: 10/31/17 20:59 Dose: 10 mg ALLERGIES amoxicillin [Amoxicillin] Adverse Reaction (Verified 09/23/17 11:12) azithromycin Adverse Reaction (Verified 09/23/17 11:12) clarithromycin [From Biaxin] Adverse Reaction (Verified 09/23/17 11:12) Macrolide Antibiotics Adverse Reaction (Verified 09/23/17 11:12) Hives telithromycin [From KETEK] Adverse Reaction (Verified 09/23/17 11:12) NEW PRESCRIPTIONS: RESUME YOUR HOME MEDICATIONS PER LIST PROVIDED BY THE NURSING STAFF PLEASE NOTE THE CHANGE IN YOUR LEVEMIR INSULIN TO 25 UNITS SUBCUT DAILY DO NOT TAKE YOUR METFORMIN DO NOT TAKE YOUR PREDNISONE DO NOT TAKE BLOOD THINNERS UNTIL FURTHER INSTRUCTED BY YOUR PHYSICIAN NEW PRESCRIPTIONS (HOSPITAL SUPPLY CURRENTLY IN USE WILL BE PROVIDED) BACTROBAN OINTMENT, APPLY TO COCCYXGEAL ULCER TWICE DAILY SMOKING: FORMER SMOKER NONE NOW DISEASE SPECIFIC EDUCATION: SEPSIS GASTROINTESTINAL BLEEDING BLOOD THINNERS ATRIAL FIBRILLATION HOME MEDICATIONS NEW PRESCRIPTIONS WOUND [facility] REFERRAL APPOINTMENTS WITH UROLOGY AND GI FOLLOW UP LAB REVIEW: 10/31/17 04:30 10/31/17 04:30 PLAN: DISCHARGE HOME TODAY RETURN TO SEE DR. PICKARD IN HIS OFFICE ON 11/08/17 AT 10 A.M. [facility] WILL PHONE YOU AT HOME TO BEGIN RESUMPTION OF SERVICES FOR NURSING (GENERALIZED ASSESSMENT AND WOUND CARE), PT AND OT PH #: [phone] KEEP YOUR APPOINTMENT WITH DR. Genet RILEY, INTELLIGENCE APPLICATIONS 11/05/17 AT 1:45 P.M. TAKE THE RADIOLOGY CD PROVIDED TO YOUR APPOINTMENT [id number], [address] [place] [address] PH# [phone] KEEP YOUR APPOINTMENT WITH DR. MILLER, UROLOGIST 11/04/17 AT 2:20 P.M. TAKE THE RADIOLOGY CD PROVIDED TO YOUR APPOINTMENT [address], [address] [place] [address] PH# [phone] RESUME YOUR HOME MEDICATIONS PER LIST PROVIDED BY THE NURSING STAFF PLEASE NOTE THE CHANGE IN YOUR LEVEMIR INSULIN TO 25 UNITS SUBCUT DAILY DO NOT TAKE YOUR METFORMIN DO NOT TAKE YOUR PREDNISONE DO NOT TAKE BLOOD THINNERS UNTIL FURTHER INSTRUCTED BY YOUR PHYSICIAN NEW PRESCRIPTIONS (HOSPITAL SUPPLY CURRENTLY IN USE WILL BE PROVIDED) BACTROBAN OINTMENT, APPLY TO COCCYXGEAL ULCER TWICE DAILY ACTIVITY GET PLENTY OF REST AT HOME. GRADUALLY INCREASE YOUR ACTIVITY LEVEL ACCORDING TO YOUR TOLERATION AND INSTRUCTION BY PHYSICAL THERAPY/OCCUPATIONAL THERAPY MONITOR YOUR BLOOD SUGARS TWICE DAILY AND NEEDED DIET CONSISTENT CARBS SUMMARY THE PATIENT IS ALERT AND ORIENTED X3. SHE CURRENTLY IS DEPENDENT ON OTHERS FOR ASSISTANCE WITH HYGIENIC NEEDS AND AMBULATION. SHE REQUIRES A ROLLING WALKER FOR SAFE AMBULATION. SHE HAS A ROLLING WALKER AVAILABLE FOR USE AT HOME. SHE ALSO HAS A GLUCOMETER AND BLOOD SUGAR TESTING SUPPLIES. SHE IS AGREEABLE TO A CONTINUATION OF HOME HEALTH FOR NURSING -GENERAL ASSESSMENT, WOUND CARE AND MEDICATION COMPLIANCE. SHE WILL ALSO BENEFIT FROM PHYSICAL AND OCCUPATIONAL THERAPY IN THE HOME ENVIRONMENT. WE HAVE DISCUSSED THE NEED FOR THESE SERVICES. THE PATIENT IS AGREEABLE AND HAS CHOSEN [facility] TO PROVIDE THEM. THERE IS A STAGE II DECUBITUS ULCER TO THE COCCYX INSIDE THE GLUTEAL CREVICE. THE NURSING STAFF HAS BEEN APPLYING BACTROBAN TO A CLEANSED AREA TWICE DAILY. MS. GRIFFIN ALSO HAS EXCORIATION TO HER LEFT INNER THIGH AND THE PANNICULUS ABOVE THE SUPRAPUBIC AREA. NYSTATIN CREAM HAS BEEN APPLIED TO THIS AREA AFTER THOROUGH CLEANSING AND DRYING. THE PATIENT IS AWARE AND AGREEABLE FOR TODAY'S DISCHARGE PLANS. SHE HAS BEEN PROVIDED VERBAL WELL WRITTEN DISCHARGE INSTRUCTIONS INCLUDING MEDICATIONS , REFERRAL AND FOLLOW UP APPOINTMENTS. CURRENT CODE STATUS DO NOT RESUSCITATE GREGORIO PINEDA APRN PATRICIA PICKARD M.D.
--- NOTE | 2017-11-04 08:05 | PN ---
DATE OF VISIT: 10/31/17 SUBJECTIVE: The wound still looks about the same as yesterday. It is clean more so in the lower 2/3. Don't know when Dr. Hollins is going to send her home. The patient's appetite had been good and consuming food, 100%. She is still using nasal oxygen at 2 liters. Her oxygen saturation early this morning was 98%. MTDD
--- NOTE | 2017-11-05 08:20 | PN ---
DATE OF SERVICE: 10/29/17 SUBJECTIVE: The patient was seen with Nurse Practitioner. The patient's creatinine and BUN has gone up some. Hgb from 9.5 to 8.9. We will do a CT scan of the abdomen which was reviewed and showed a 1cm calculus within the proximal right ureter causing moderate right hydronephrosis. The patient had left hydronephrosis which was to some extent resolved with left ureteral stent which seems to be intact. PHYSICAL EXAMINATION: VITALS: Seems to be stable. Blood pressure 102/59 will monitor that. HEENT: Head normocephalic, atraumatic. Eyes: Extraocular muscles are intact. Pupils are equal, round and reactive to light and accommodation. Ears: No lesions. Nose appeared normal. Throat: No exudate or erythema. NECK: Supple. No JVD, no carotid bruit. No lymphadenopathy or thyromegaly. LUNGS:Decreased breath sounds but clear to auscultation. Percussion note normal. Chest symmetrical. HEART: S1, S2, no S3. No murmurs. No cyanosis or clubbing. No ascites. Pulses: Dorsalis pedis and posterior tibial pulses +1 to +2 both sides. ABDOMEN: Soft. Nontender. Bowel sounds active. No CVA tenderness. No mass felt. EXTREMITIES: No edema. Full range of motion of all extremities, equal. NEUROLOGIC: No focal deficit. Cranial nerves II through XII are grossly intact. No headache, no double vision or headache. SKIN: Not dry. Intact. Turgor - normal. LYMPHATIC: No palpable lymph nodes/no lymphedema. MUSCULOSKELETAL: Normal joints with no swelling. Muscle tone is normal. Up and about with help CONDITION: Stable TIME SPENT: More than 30 minutes. Plan and coordination of the patient's care discussed in the presence of nurse. LICO
--- NOTE | 2017-11-06 11:50 | PN ---
DATE OF SERVICE: 10/31/17 SUBJECTIVE: 67-year-old white female hospitalized in the swing bed after she was treated for septicemia. The patient's kidney functions are improving. Creatinine 1.2, BUN 23. Hemoglobin and hematocrit seem to be stable with positive occult blood. The patient may need workup for it. The patient is to be followed up with Dr. Herring and Sp. Dig level is to be done. The patient was seen and examined with nurse practitioner. CONDITION: Stable. TIME SPENT: More than 30 minutes. Plan and coordination of the patient's care discussed in the presence of nurse. LICO
--- NOTE | 2017-11-06 11:54 | PN ---
DATE OF SERVICE: 11/01/17 SUBJECTIVE: The patient is doing a lot better. She is able to walk. Cardiovascular status is stable with no evidence of CHF or coronary insufficiency. She understands all her medications. She is intelligent but not motivated. I strongly advised her to lose weight. CHF discussed in detail. All other medical problems and medications discussed with side effects. She will be followed as an outpatient. The patient is strongly advised to followup with Dr. Herring. Kidney functions are stable at the present time. She does not have any fever or chills. Prognosis is poor considering her noncompliance with lifestyle and multiple medical problems with not much help she gets at home living by herself. The patient was seen and examined with nurse practitioner. TIME SPENT: More than 30 minutes. Plan and coordination of the patient's care discussed in the presence of nurse. LICO
--- NOTE | 2017-11-11 13:11 | PN ---
DATE OF VISIT: 10/25/17 67 year old female , patient of Dr. Rivas, is seen on rounds today. The patient is alert and responsive. This patient has very significant problems. The patient is now on Transitional Care. The patient is able to eat and does still have some abdominal discomfort. She is not short of breath. LUNGS: Clear to auscultation. HEART: Audible with good tones. ABDOMEN: Some tenderness, but the bowel sounds are active. The patient's condition seems to be stable at this time. LICO
--- NOTE | 2017-11-11 13:15 | PN ---
DATE OF VISIT: 10/25/17 The patient is alert and feeling better. She still has some abdominal pain intermittently, but her appetite had been improved. She denied any pain in both legs. HEART: Normal sinus rhythm. ABDOMEN: Protuberant with minimal tenderness. No muscular guarding. Bowel sounds are active. The patient does have some ulcerations in the coccyx and also in the thigh. Culture pending. CONDITION: Stable. [facility]
--- NOTE | 2017-11-11 13:24 | PN ---
DATE OF VISIT: 10/26/17 The patient is alert and cheerful. The clostridium difficile was negative. The patient did have some lice and she is still on contact isolation. The culture did show MRSA and the area would be treated with Bactroban. No antibiotic orally will be given. The patient's diarrhea also has decreased. It was about 3 or 4 yesterday and about the same or less today. She did have some abdominal pain and rated the pain 7 on a scale of 01-10. The pain, however , was much less since she had pain medication given. She wanted to know whether she can go home soon and I told her that Dr. Hollins would be back tomorrow and that arrangements probably could be made by Saturday. She wanted physical therapy to come to her house. LICO
--- NOTE | 2017-11-12 15:23 | PN ---
DATE OF VISIT: 10/30/17 The patient is alert and responsive. She is able to turn from left to right. The wound looks equipment or machinery cleaner and the lower two-thirds has a better granulation tissue. The patient is continued on ____ plus a dry dressing. She needs to be seen by wound care when she gets discharged from the hospital. The obesity makes it difficult for this pressure ulcer to heal. LICO
--- NOTE | 2017-12-04 14:57 | DS ---
DATE OF SERVICE: 11/01/17 FINAL DIAGNOSIS: 1. DECLINE IN FUNCTION SECONDARY TO MULTIPLE MEDICAL ISSUES 2. SEPSIS DUE TO E-COLI (DR. Simon MORENO) 3. ANEMIA (TRANSFUSED 2 U PRBC'S 09/23/17), (2 U PRBC'S, 10/12/17), (3U PRBC'S , 10/13/17)(2 U PRBC'S 10/28/17) 4. 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 BOWEL PERFORATION (DIVERTICULAR PERFORATION - DR. CARVALHO) 6. CONTAINED PERFORATION OF THE DESCENDING COLON CT 10/06/17 - [facility] 7. GASTROINTESTINAL HEMORRHAGE ASSOCIATED WITH PEPTIC ULCER, (DR. RILEY, 10/13) 8. ESOPHAGOGASTRODUODENOSCOPY (DR. JEAN MARIE RILEY, 10/14/17) 9. NONBLEEDING GASTRIC AND DUODENAL ULCERS (DR. JEAN MARIE RILEY, 10/14/17) 10. MELENA 11. OROPHARYNGEAL DYSPHAGIA, RESOLVED 12. DECUBITUS ULCERS, STAGE II COCCYX AND LEFT INNER THIGH 13. PEDICULOSIS CAPITIS, TREATED WITH NIX 10/21/17, 10/22/17 [facility] 14. URETERAL STONES - MID DISTAL LEFT URETER 8 CM (DR. MILLER) 15. RETROGRADE URETEROPYELOGRAM WITH STENT PLACEMENT (DR. MILLER, 10/21/17) 16. RESPIRATORY FAILURE, 09/23/17 [facility] 17. PNEUMONIA, 09/23/17 [facility] 18. INFLUENZA B, 09/23/17 [facility] 19. CHRONIC KIDNEY DISEASE WITH ACUTE KIDNEY INJURY ([facility] 10/21/17) 20. OBESITY, BMI 43.1 21. DM, TYPE 2 22. CONGESTIVE HEART FAILURE 23. DILATED CARDIOMYOPATHY 24. CHRONIC LUNG DISEASE (RESTRICTIVE) 25. HYPERTENSION 26. DYSLIPIDEMIA 27. HYPOTHYROIDISM 28. ATRIAL FIBRILLATION (DIG LEVEL 0.41 ON 09/23/17) 29. ARTHRITIS 30. LUMBAR RADICULOPATHY 31. GRAVES DISEASE 32. HISTORY OF KIDNEY STONES 33. TUBAL LIGATION 34. KIDNEY STENT PLACEMENT, 11/13 DISCHARGE INSTRUCTIONS: 1. Followup appointment: Return to see Dr. Hollins in his office on 11/08/17 at 10 a.m. 2. [facility] ([facility] will phone you at home to begin resumption of services for nursing (generalized assessment and wound care , PT and OT, PH# [phone] 3. Keep your appointment with Dr. Jean Marie Riley, Warp Knitter, 11/05/17 at 1:45 p.m.. Take the radiology CD provided to your appointment. 4. Keep your appointment with Dr. Miller, Urologist 11/04/17 at 2:20 p.m. Take the radiology CD provided to your appointment. 5. Resume your home medications as per listed provided by the nursing staff. 6. Monitor your blood sugars twice daily and as needed. MEDICATIONS AT DISCHARGE: [place] 7.5-325 one tab p.o. q.8hr p.r.n. Albuterol one vial neb RT q.4h p.r.n. Aspirin 81 mg p.o. b.i.d. with meal JOSSELIN Santyl one application TP 1200 JOSSELIN Lanoxin 125 mcg p.o. daily JOSSELIN Insulin Determir (Levemir) 25 unit subcut bedtime JOSSELIN (decreased from 30 units) Synthroid 200 mcg p.o. q.d a.c. JOSSELIN Milk of Magnesia 30 mL p.o. daily p.r.n. Minoxidil 2.5 mg p.o. b.i.d. JOSSELIN Nystastin Cream one application TP b.i.d. JOSSELIN Nystop Powder one application TP b.i.d. JOSSELIN Protonix 40 mg p.o. b.i.d. a.c. JOSSELIN K-Dur 20 mEq p.o. daily JOSSELIN Requip 0.5 mg p.o. bedtime JOSSELIN Zocor 10 mg p.o. bedtime JOSSELIN NEW PRESCRIPTIONS: Resume your home medications as per list provided by the nursing staff Please note the change in your Levemir insulin to 25 units subcut daily Do not take your Metformin Do not take your Prednisone Do not take blood thinners until further instructed by your physician New prescriptions (Hospital supply currently in use will be provided) Bactroban ointment, apply to coccyxgeal ulcer twice daily DIET INSTRUCTIONS: Consistent carbs ACTIVITY: Get plenty of rest at home. Gradually increase your activity level according to your toleration and instruction by physical therapy/occupational therapy. SMOKING: Former smoker None now DISEASE SPECIFIC EDUCATION: Sepsis Gastrointestinal bleeding Blood thinners Atrial fibrillation Home medications New prescriptions Wound residential Health Referral appointments with urology and GI Follow up HOSPITAL COURSE: This is a 67-year-old white female with a history of multiple problems. She had most recently been hospitalized at [facility] with resolving sepsis due to E. coli infection. She had urinary tract infection with bilateral kidney stones with a stent placed in the left kidney and had hydronephrosis bilaterally which had improved prior to her admission here. On admission at [facility], she had elevated kidney function with creatinine up to 5. She was in acute renal failure. She was given IV fluids. They stented her ureter and she was given IV antibiotics. Her sepsis seems to be resolving. She was discharged here on no antibiotics as she finished her antibiotic course there. She had a rupture of the diverticulum with acute anemia so she is no longer on any blood thinner despite her atrial fibrillation. She came here for rehabilitation, physical therapy and occupation therapy. She has follow up appointments with Dr. Riley, Dr. Snowden and Dr. Miller. While at [facility], she was transfused 3 units. During the course of her hospital stay, she has improved remarkably regarding physical and occupational therapy. She had a Stage 2 on her buttocks present on admission. She was initially started on Lovenox, low dose due to atrial fibrillation. She was placed on telemetry which showed consistent atrial fib. The rate has been controlled. She has been anemic during her hospital stay. Last week her hemoglobin dropped as low as 7.4 and she was short of breath, pale and fatigued. We administered 2 units. Her hemoglobin went up to 9.3. It has been steady from 8.9 to 9.3 fluctuating on a daily basis since last week after she was transfused. The patient has been up and about. Her TSH initially was in the 200's. Since admission she was started on 200 mcg of Synthroid. She has a history of hypothyroidism and is believed that she just was not taking her medicine as she has a history of noncompliance with medication, lifestyle and followup. Today, on day of discharge, her TSH is down to 11. She will continue on 200 mcg of Synthroid and will recheck her TSH when she comes to the office for followup. Her rate has been controlled and blood pressure has been controlled during her hospital stay. We have not changed any of her medications. We did add her on Protonix 40 mg b.i.d. Due to the drop in her hemoglobin, we also discontinued the Lovenox and she will continue on no blood thinner. Prior to discharge from [facility], CT scans had showed and Dr. Snowden's report had showed that the ruptured diverticulum had since resolved and was healing. She did have one positive stool for occult blood while she was here. Again, we stopped the Lovenox and she has remained steady. There has not been any visible blood in her stool since last week. She does have a followup appointment with Dr. Snowden next week and she is instructed to keep this. Her dig level has been low. Her rate has been controlled on Digoxin 125 mcg daily. We have continued this. All of her other medications have stayed the same. Again, she was not discharged here on any antibiotic therapy. Infectious Disease stated that she had completed this therapy. A repeat UA was done along with a chest x-ray both of which were normal. She has been getting Bactroban to the wound on her buttock which was positive for MRSA and the Bactroban should treat. She will continue this at home. She is going to go home in stable condition. Again, her hemoglobin has been stable. She is going to see us early next week with repeat CBC and CMP. She refused repeat lab values today. She is going to go home with her sister, Anika. It has been arranged for Home Health as well as Physical and Occupational Therapy to see her at her sister's house and again she has a followup with Dr. Snowden next week, Dr. Riley, the surgeon next week and Dr. Miller the urologist all next week. The importance of following up with these appointments have been stressed to her. Again, she was discharged from physical therapy. She has been up and about doing well on her own. She has been eating 75 to 100% of her meals. Her labs are stable - kidney function, BUN 23, creatinine 1.25. We will discharge her in stable condition and see her next week. TIME SPENT: More than 60 minutes. LICO
== END 2017-11-01 13:29 | disposition home or self-care (01) | DRG 871 ==
LOC: MEDSURG B 21:10
PROVIDERS: ADMIT Internal Medicine; ATTEND Internal Medicine
PROC: 30233N1 Transfusion of Nonautologous Red Blood Cells into Peripheral Vein, Percutaneous Approach (ICD-10-PCS; principal; 2017-10-28)
DX: A41.51 Sepsis due to Escherichia coli [E. coli] (principal); K26.6 Chronic or unspecified duodenal ulcer with both hemorrhage and perforation; N20.1 Calculus of ureter; I42.0 Dilated cardiomyopathy; D50.0 Iron deficiency anemia secondary to blood loss (chronic); L89.152 Pressure ulcer of sacral region, stage 2; A49.02 Methicillin resistant Staphylococcus aureus infection, unspecified site; R13.12 Dysphagia, oropharyngeal phase; L89.892 Pressure ulcer of other site, stage 2; B85.0 Pediculosis due to Pediculus humanus capitis; Z87.442 Personal history of urinary calculi; N18.9 Chronic kidney disease, unspecified; E11.9 Type 2 diabetes mellitus without complications; I50.9 Heart failure, unspecified; J44.9 Chronic obstructive pulmonary disease, unspecified; I10 Essential (primary) hypertension; E78.5 Hyperlipidemia, unspecified; E03.9 Hypothyroidism, unspecified; I48.91 Unspecified atrial fibrillation; M19.90 Unspecified osteoarthritis, unspecified site; M54.16 Radiculopathy, lumbar region; E05.00 Thyrotoxicosis with diffuse goiter without thyrotoxic crisis or storm; Z79.4 Long term (current) use of insulin
CPT/HCPCS: 36415; 36430; 80053; 80162; 81001; 82272; 82962; 84439; 84443; 85014; 85018; 85025; 86850; 86900; 86922; 87070; 87081; 87086; 87186; 87493; 93005; 93010; 97802; 99222; 99306; 99308; 99316

== ENCOUNTER 2019-04-27 12:01 | Inpatient (IN) ==
[2019-04-27] MEDS ORDERED: TYLENOL PO PRN (12:25)
[2019-04-27] MEDS ORDERED: ATROPINE SULFATE PFS IVP PRN (12:25)
[2019-04-27] MEDS ORDERED: NITROSTAT SL PRN (12:25)
[2019-04-27] MEDS ORDERED: VISTARIL INJ IM PRN (12:25)
[2019-04-27 13:25] VITALS: BMI 44.8
--- NOTE | 2019-04-27 13:53 | DI ---
EXAM: Chest two views HISTORY: Shortness of breath FINDINGS: Compared to 10/24/2017. Cardiomegaly is again noted. Atherosclerotic disease is present. There is no pneumothorax or pleural fluid. Subtle interstitial infiltrate in the central and lower lung zones is suggested. No well-defined lobar consolidation. IMPRESSION: 1. Cardiomegaly. Probable mild pulmonary vascular congestion. No definite consolidated pneumonia a lthough correlation clinically is recommended.
[2019-04-27] MEDS: LASIX IVP SCH (14:26)
[2019-04-27] MEDS: PROTONIX PO SCH (16:09)
[2019-04-27] MEDS: PERCOCET 7.5-325 PO SCH ×2 (16:10→21:33)
[2019-04-27] MEDS: ZOCOR PO SCH (21:31)
[2019-04-27] MEDS: MINOXIDIL PO SCH (21:32)
[2019-04-27] MEDS: NYSTATIN CREAM TP SCH (21:34)
[2019-04-27] MEDS: LEVEMIR SUBCUT SCH (21:49)
[2019-04-27] MEDS ORDERED: LANOXIN IVP STA (22:52)
[2019-04-28] MEDS: PERCOCET 7.5-325 PO SCH ×4 (02:18→20:59)
[2019-04-28] MEDS: LASIX IVP SCH (05:48)
[2019-04-28] MEDS: PROTONIX PO SCH ×2 (05:51→17:03)
[2019-04-28] MEDS: SYNTHROID PO SCH (05:51)
[2019-04-28] MEDS ORDERED: NON-FORMULARY MEDICATION (Levothyroxine Sodium [Synthroid] 200 MCG) PO SCH (06:30)
[2019-04-28] MEDS ORDERED: ASPIRIN EC PO SCH (08:00)
[2019-04-28] MEDS ORDERED: LANOXIN IVP STA (08:16)
[2019-04-28] MEDS ORDERED: NON-FORMULARY MEDICATION (Ferrous Sulfate [Iron] 325 MG) PO SCH (09:00)
[2019-04-28] MEDS ORDERED: LANOXIN PO SCH (09:00)
--- NOTE | 2019-04-28 09:06 | PCM.PROG ---
Attending Provider: ATTENDING PROVIDER: Dr. PATRICIA PICKARD This patient is seen with Lacey Gipson, Nurse Practitioner. DATE OF SERVICE: 04/28/19 SUBJECTIVE: This 68 year old WHITE/ F was hospitalized 04/27/19. The patient is lying in bed resting comfortably. She had 5 lb weight loss from yesterday. Shortness of breath is somewhat improved. She is still tachycardic. REVIEW OF SYSTEMS: CONSTITUTIONAL: No night sweats. No fatigue, malaise, lethargy. No fever or chills. HEENT: Eyes: No visual changes. No eye pain. No eye discharge. ENT: No runny nose. No epistaxis. No sinus pain. No odynophagia. No congestion. RESPIRATORY: Shortness of breath. No cough, no congestion. No hemoptysis. CARDIOVASCULAR: Positive for leg edema. No angina symptoms. No CHF symptoms. No atypical chest pain for CAD. No palpitations. No orthopnea. GASTROINTESTINAL: No abdominal pain. No nausea or vomiting. No diarrhea or constipation. No hematemesis. No hematochezia. GENITOURINARY: No urgency. No frequency. No dysuria. No hematuria. No obstructive symptoms. No discharge. No pain. No significant abnormal bleeding. MUSCULOSKELETAL: No musculoskeletal pain; no joint swelling. NEUROLOGICAL: Awake, alert, oriented to time, place and person. No headache. No neck pain. No syncope. No seizures. No dizziness. PSYCHIATRIC: Not anxious. No depression. No suicidal thoughts. No homicidal thoughts. SKIN: No rash. No lesions. No wounds. ENDOCRINE: No unexplained weight loss. No weight gain. HEMATOLOGIC/LYMPHATIC: No anemia. No purpura. No petechiae. No prolonged or excessive bleeding. No palpable lymph nodes. PHYSICAL EXAMINATION: GENERAL: The patient is awake, alert and oriented, lying/sitting in bed in no distress. VITAL SIGNS: Temperature 97.7 F, Pulse 110, Respiratory Rate 20, BP 120/65, Pulse Ox 92% HEENT: Head normocephalic, atraumatic. Eyes: Extraocular muscles are intact. Pupils are equal, round and reactive to light and accommodation. Ears: No lesions. Nose appeared normal. Throat: No exudate or erythema. NECK: Supple. No JVD, no carotid bruit. No lymphadenopathy or thyromegaly. LUNGS: Diminished breath sounds. Clear to auscultation. Percussion note normal. Chest symmetrical. HEART: Positive for irregular heart rate. S1, S2, no S3. No murmurs. No cyanosis or clubbing. No ascites. Pulses: Dorsalis pedis and posterior tibial pulses +1 to +2 both sides. ABDOMEN: Soft. Non-tender. Bowel sounds active. No CVA tenderness. No mass felt. EXTREMITIES: +1 to +2 eg edema. Full range of motion of all extremities, equal. NEUROLOGIC: No focal deficit. Cranial nerves II through XII are grossly intact. No headache, no double vision or headache. SKIN: Not dry. Intact. Turgor-normal. LYMPHATIC: No palpable lymph nodes/no lymphedema. MUSCULOSKELETAL: Normal joints with no swelling. Muscle tone is normal. LAB REVIEW: 04/28/19 04:50 04/28/19 04:50 04/28/19 04:50: Sodium 140.5, Potassium 4.01, Chloride 107.0, Carbon Dioxide 27.3, Anion Gap 10.21, BUN 29.3 H, Creatinine 1.60 H, Estimated GFR (MDRD) 32.00 , BUN/Creatinine Ratio 18.31, Glucose 101.7, Calcium 8.15 L, Total Bilirubin 0.94, AST 15.5, ALT 9.6, Alkaline Phosphatase 79.0, Total Protein 7.11, Albumin 3.08 L, Globulin 4.03, Albumin/Globulin Ratio 0.76 04/28/19 04:50: WBC 5.27, RBC 3.55 L, Hgb 9.0 L, Hct 31.6 L, MCV 89.0, MCH 25.4 L, MCHC 28.5 L, RDW Coeff of [place] 17.6 H, Plt Count 222, Immature Gran % (Auto) 0.2, Neut % (Auto) 55.9, Lymph % (Auto) 26.2, [place] % (Auto) 11.2 H, Eos % (Auto ) 5.9, Baso % (Auto) 0.6, Immature Gran # (Auto) 0.0, Neut # (Auto) 3.0, Lymph # (Auto) 1.4, [place] # (Auto) 0.6, Eos # (Auto) 0.3, Baso # (Auto) 0.0, Hypochromasia 2+, Anisocytosis 1+ 04/27/19 20:50: Total Creatine Kinase 33.7, Troponin I 0.019 04/27/19 12:56: Urine Color Yellow, Urine Clarity Turbid, Urine pH 7.0, Ur Specific [place] 1.020, Urine Protein 2+, Urine Glucose (UA) Negative, Urine Ketones Negative, Urine Blood 2+, Urine Nitrite Positive, Urine Bilirubin Negative, Urine Urobilinogen 1.0, Ur Leukocyte Esterase 2+, Urine Microscopic RBC 30-50, Urine Microscopic WBC 50-100, Ur Squamous Epith Cells Not present, Urine Bacteria 3+ 04/27/19 12:37: Free T4 2.57 H, Digoxin 0.72 L 04/27/19 12:37: Sodium 141.2, Potassium 4.58, Chloride 108.4 H, Carbon Dioxide 22.8, Anion Gap 14.58, BUN 29.4 H, Creatinine 1.50 H, Estimated GFR (MDRD) 34.00 , BUN/Creatinine Ratio 19.60, Glucose 77.2, Calcium 8.74, Total Bilirubin 1.00, AST 21.0, ALT 11.2, Alkaline Phosphatase 100.2, Total Creatine Kinase 29.6 L, Troponin I 0.015, Total Protein 8.16, Albumin 3.57, Globulin 4.59, Albumin/ Globulin Ratio 0.77, TSH 2.970 04/27/19 12:37: WBC 6.05, RBC 3.88 L, Hgb 10.0 L, Hct 33.8 L, MCV 87.1, MCH 25.8 L, MCHC 29.6 L, RDW Coeff of [place] 17.8 H, Plt Count 259, Immature Gran % ( Auto) 0.3, Neut % (Auto) 64.9, Lymph % (Auto) 23.3, [place] % (Auto) 7.4, Eos % ( Auto) 3.6, Baso % (Auto) 0.5, Immature Gran # (Auto) 0.0, Neut # (Auto) 3.9, Lymph # (Auto) 1.4, [place] # (Auto) 0.5, Eos # (Auto) 0.2, Baso # (Auto) 0.0 04/27/19 12:28: Puncture Site Lbrach, O2 Saturation 96.0, ABG pH 7.444, ABG pCO2 29.5 L, ABG pO2 74.0 L, ABG HCO3 20.2 L, ABG Total CO2 21 L, ABG Base Excess -4 L, O2 Delivery Device Nc, Oxygen Liter Flow 2.50 ASSESSMENT: Please see below. 1. Leg edema 2. CHF 3. Atrial fibrillation with RVR 4. Shortness of breath 5. History of GI bleed not on anticoagulants 6. Anemia 7. Noncompliance with medication, diet, lifestyle and followup PLAN: 1. Echocardiogram. 2. Hold Lanoxin p.o. today. 3. Lanoxin 0.25 mg IV one time dose today. Plan and coordination of the patient's care discussed in the presence of Piercing Machine Operator and nurse. CONDITION: Stable SCRIBED BY: JOSE CARLOS ORTEGA Poultry Pathologist scribed while in presence of service performed by Dr. Pickard/Lacey Gipson APRN on 04/28/19 ([id number])
[2019-04-28] MEDS: MINOXIDIL PO SCH ×2 (09:11→20:59)
[2019-04-28] MEDS: FERROUS SULFATE PO SCH (09:12)
[2019-04-28] MEDS: K-DUR PO SCH (09:12)
[2019-04-28] MEDS: NYSTATIN CREAM TP SCH ×2 (09:13→21:00)
[2019-04-28] MEDS: FLONASE NAS SCH (09:13)
[2019-04-28] MEDS: D5W IV SCH (12:33)
[2019-04-28] MEDS: LEVAQUIN IV SCH (12:33)
[2019-04-28] MEDS: COREG PO SCH ×2 (17:03→19:54)
[2019-04-28] MEDS: LEVEMIR SUBCUT SCH (20:59)
[2019-04-28] MEDS: ZOCOR PO SCH (20:59)
[2019-04-29] MEDS: PERCOCET 7.5-325 PO SCH ×2 (02:06→08:53)
[2019-04-29 05:15] VITALS: BP 105/63; TEMP 97.4
[2019-04-29] MEDS: SYNTHROID PO SCH (05:43)
[2019-04-29] MEDS: PROTONIX PO SCH (05:43)
[2019-04-29] MEDS ORDERED: LASIX IVP STA (08:25)
[2019-04-29] MEDS: D5W IV SCH (08:34)
[2019-04-29] MEDS: LEVAQUIN IV SCH (08:34)
[2019-04-29] MEDS: FLONASE NAS SCH (08:35)
[2019-04-29] MEDS: COREG PO SCH (08:35)
[2019-04-29] MEDS: K-DUR PO SCH (08:35)
[2019-04-29] MEDS: FERROUS SULFATE PO SCH (08:35)
--- NOTE | 2019-04-29 08:42 | PCM.PROG ---
Attending Provider: ATTENDING PROVIDER: Dr. PATRICIA PICKARD DATE OF SERVICE: 04/29/19 SUBJECTIVE: This 68 year old WHITE/ F was hospitalized 04/27/19 with leg edema and atrial fibrillation. Condition improved. No symptoms of CHF or coronary insufficiency. REVIEW OF SYSTEMS: CONSTITUTIONAL: No night sweats. No fatigue, malaise, lethargy. No fever or chills. HEENT: Eyes: No visual changes. No eye pain. No eye discharge. ENT: No runny nose. No epistaxis. No sinus pain. No odynophagia. No congestion. RESPIRATORY: No cough, no congestion. No hemoptysis. No shortness of breath. CARDIOVASCULAR: No angina symptoms. No CHF symptoms. No atypical chest pain for CAD. No palpitations. No orthopnea.. GASTROINTESTINAL: No abdominal pain. No nausea or vomiting. No diarrhea or constipation. No hematemesis. No hematochezia. GENITOURINARY: No urgency. No frequency. No dysuria. No hematuria. No obstructive symptoms. No discharge. No pain. No significant abnormal bleeding. MUSCULOSKELETAL: No musculoskeletal pain; no joint swelling. NEUROLOGICAL: Awake, alert, oriented to time, place and person. No headache. No neck pain. No syncope. No seizures. No dizziness. PSYCHIATRIC: Not anxious. No depression. No suicidal thoughts. No homicidal thoughts. SKIN: No rash. No lesions. No wounds. ENDOCRINE: No unexplained weight loss. No weight gain. HEMATOLOGIC/LYMPHATIC: No anemia. No purpura. No petechiae. No prolonged or excessive bleeding. No palpable lymph nodes. PHYSICAL EXAMINATION: GENERAL: The patient is awake, alert and oriented, lying/sitting in bed in no distress. VITAL SIGNS: Temperature 97.4 F, Pulse 87, Respiratory Rate 20, BP 105/63, Pulse Ox 98% HEENT: Head normocephalic, atraumatic. Eyes: Extraocular muscles are intact. Pupils are equal, round and reactive to light and accommodation. Ears: No lesions. Nose appeared normal. Throat: No exudate or erythema. NECK: Supple. No JVD, no carotid bruit. No lymphadenopathy or thyromegaly. LUNGS: Decreased breath sounds. Clear to auscultation. Percussion note normal. Chest symmetrical. HEART: S1, S2, no S3. No murmurs. No cyanosis or clubbing. No ascites. Pulses: Dorsalis pedis and posterior tibial pulses +1 to +2 both sides. ABDOMEN: Soft. Non-tender. Bowel sounds active. No CVA tenderness. No mass felt. EXTREMITIES: +1 pitting edema. Full range of motion of all extremities, equal. NEUROLOGIC: No focal deficit. Cranial nerves II through XII are grossly intact. No headache, no double vision or headache. SKIN: Warm and dry. Intact. Turgor-normal. LYMPHATIC: No palpable lymph nodes/no lymphedema. MUSCULOSKELETAL: Normal joints with no swelling. Muscle tone is normal. LAB REVIEW: 04/29/19 04:45 04/29/19 04:45 04/29/19 04:45: Sodium 140.7, Potassium 4.19, Chloride 103.8, Carbon Dioxide 29.7, Anion Gap 11.39, BUN 30.4 H, Creatinine 1.50 H, Estimated GFR (MDRD) 34.00 , BUN/Creatinine Ratio 20.26, Glucose 90.9, Calcium 8.36 L, Total Bilirubin 1.07 , AST 26.5, ALT 9.6, Alkaline Phosphatase 88.4, Total Protein 7.34, Albumin 3.19 L, Globulin 4.15, Albumin/Globulin Ratio 0.76 04/29/19 04:45: WBC 6.08, RBC 3.68 L, Hgb 9.3 L, Hct 32.4 L, MCV 88.0, MCH 25.3 L, MCHC 28.7 L, RDW Coeff of [place] 17.3 H, Plt Count 257, Immature Gran % (Auto) 0.3, Neut % (Auto) 64.9, Lymph % (Auto) 19.7, [place] % (Auto) 8.7, Eos % (Auto) 5.9, Baso % (Auto) 0.5, Immature Gran # (Auto) 0.0, Neut # (Auto) 3.9, Lymph # ( Auto) 1.2, [place] # (Auto) 0.5, Eos # (Auto) 0.4, Baso # (Auto) 0.0, Hypochromasia 2+, Anisocytosis 1+ 04/28/19 13:45: Urine Color Yellow, Urine Clarity Slightly, Urine pH 5.5, Ur Specific [place] 1.010, Urine Protein Negative, Urine Glucose (UA) Negative, Urine Ketones Negative, Urine Blood 2+, Urine Nitrite Negative, Urine Bilirubin Negative, Urine Urobilinogen 0.2, Ur Leukocyte Esterase 3+, Urine Microscopic RBC 20-30, Urine Microscopic WBC 10-20, Ur Squamous Epith Cells 2-5, Urine Bacteria Trace ASSESSMENT: Please see below. 1. Leg edema seems to be resolved. Some symptoms of CHF, atrial fibrillation with controlled ventricular response. 2. Anemia. 3. CKD. PLAN: 1. Discharge home. 2. New medications Coreg and Cozaar. 3. The patient is noncompliant of lifestyle, medications and followup. 4. She is on Levofloxacin for UTI. Will discontinue that today. 5. Discontinue Minoxidil. 6. Lasix 20 mg IV today. 7. Lasix 20 mg daily at home with K-Tab daily. Plan and coordination of the patient's care discussed in the presence of Bus Transportation Manager and nurse. CONDITION: Stable SCRIBED BY: JOSE CARLOS ORTEGA, Recreation Attendant scribed while in presence of service performed by Dr. PATRICIA PICKARD on 04/29/19 ([id number])
[2019-04-29] MEDS: NYSTATIN CREAM TP SCH (08:54)
--- NOTE | 2019-04-29 11:13 | CM.DICTOOL ---
ADMISSION: 04/27/19 12:01 DISCHARGE: APRIL 29, 2019 DATE OF SERVICE: 04/29/19 FINAL DIAGNOSIS LEG EDEMA CHF A FIB WITH RVR SOA ANEMIA - DR. CADE GRAVES DISEASE A FIB, PER HISTORY (NO BLOOD THINNERS D/T HISTORY OF GI BLEED) HTN DILATED CARDIOMYOPATHY DYSLIPIDEMIA CAD CHF PEPTIC ULCERS W/ GASTROINTESTINAL HEMORRHAGE 2018 BOWEL PERFORATION - DR. PITTMAN 2018 COPD - OXYGEN DEPENDENT DM, TYPE 2 CKD STAGE ? NEPHROLITHIASIS, S/P STENT 2014 HYDRONEPHROSIS DJD SPINE - DR. SHEARER (PAIN MANAGEMENT) OA DEPRESSION ANXIETY NON COMPLIANT WITH MEDICATIONS, APPOINTMENTS AND LIFESTYLE BREAST AUGMENTATION TUBAL LIGATION LAST ECHOCARDIOGRAM March,: LAST VITALS Temp Pulse Resp BP Pulse Ox 97.4 F L 87 20 105/63 98 04/29/19 05:12 04/29/19 08:00 04/29/19 08:00 04/29/19 05:12 04/29/19 05:12 TAKE THESE MEDICATIONS AT HOME Albuterol Sulfate (Ventolin HFA) 90 mcg INH 2-4 Times DAILY Last Dose: Digoxin 125 mcg PO DAILY [facility] Last Dose: Carvedilol (Coreg) 3.125 mg PO BIDWM [facility] Last Admin: 04/29/19 08:35 Dose: 3.125 mg Ferrous Sulfate (Ferrous Sulfate) 324 mg PO DAILY [facility] Last Admin: 04/29/19 08:35 Dose: 324 mg Fluticasone Propionate (Flonase) 2 spray LAYLA DAILY [facility] Last Admin: 04/29/19 08:35 Dose: 2 spray Insulin Detemir (Levemir) 25 unit SUBCUT BEDTIME [facility] Last Admin: 04/28/19 20:59 Dose: 25 unit Levothyroxine Sodium (Synthroid) 200 mcg PO QDAC [facility] Last Admin 04/29/2019 at 08:40 Nystatin (Nystatin Cream) 1 applic TP BID [facility] Last Admin: 04/29/19 08:54 Dose: 1 applic Oxycodone/Acetaminophen (Percocet 7.5-325) 1 tab PO 0200,0800,1400,2000 [facility] Last Admin: 04/29/19 08:53 Dose: 1 tab Pantoprazole Sodium (Protonix) 40 mg PO BIDAC [facility] Last Admin: 04/29/19 05:43 Dose: 40 mg Potassium Chloride (K-Dur) 20 meq PO DAILYWM [facility] Last Admin: 04/29/19 08:35 Dose: 20 meq Simvastatin (Zocor) 10 mg PO BEDTIME [facility] Last Admin: 04/28/19 20:59 Dose: 10 mg Cozaar 25 mg PO DAILY [facility] Last Admin: Lasix 20 mg PO DAILY [facility] Last Admin: ALLERGIES apixaban [From Eliquis] Adverse Reaction (Severe, Verified 04/27/19 13:11) Palpitations amoxicillin [Amoxicillin] Adverse Reaction (Verified 09/23/17 11:12) azithromycin Adverse Reaction (Verified 09/23/17 11:12) clarithromycin [From Biaxin] Adverse Reaction (Verified 09/23/17 11:12) Macrolide Antibiotics Adverse Reaction (Verified 09/23/17 11:12) Hives telithromycin [From KETEK] Adverse Reaction (Verified 09/23/17 11:12) Amoxicillin Adverse Reaction (Uncoded 06/04/13 17:38) azithromycin Adverse Reaction (Uncoded 06/04/13 17:38) clarithromycin Adverse Reaction (Uncoded 06/04/13 17:39) Macrolide Antibiotics Adverse Reaction (Uncoded 06/04/13 17:40) Hives Telithromycin Adverse Reaction (Uncoded 06/04/13 17:39) DISCONTINUED MEDICATIONS Minoxidil NEW PRESCRIPTIONS: LASIX 20 MG DAILY COZAAR 25 MG DAILY COREG 3.125 MG BID SMOKING: NOT APPLICABLE DISEASE SPECIFIC EDUCATION: LEG EDEMA AND IMPORTANCE OF ELEVATING THE LEGS DAILY WEIGHTS MEDICATIONS APPOINTMENT LAB REVIEW: 04/29/19 04:45 04/29/19 04:45 04/29/19 04:45: Sodium 140.7, Potassium 4.19, Chloride 103.8, Carbon Dioxide 29.7, Anion Gap 11.39, BUN 30.4 H, Creatinine 1.50 H, Estimated GFR (MDRD) 34.00 , BUN/Creatinine Ratio 20.26, Glucose 90.9, Calcium 8.36 L, Total Bilirubin 1.07 , AST 26.5, ALT 9.6, Alkaline Phosphatase 88.4, Total Protein 7.34, Albumin 3.19 L, Globulin 4.15, Albumin/Globulin Ratio 0.76 04/29/19 04:45: WBC 6.08, RBC 3.68 L, Hgb 9.3 L, Hct 32.4 L, MCV 88.0, MCH 25.3 L, MCHC 28.7 L, RDW Coeff of Taylor 17.3 H, Plt Count 257, Immature Gran % (Auto) 0.3, Neut % (Auto) 64.9, Lymph % (Auto) 19.7, Darke % (Auto) 8.7, Eos % (Auto) 5.9, Baso % (Auto) 0.5, Immature Gran # (Auto) 0.0, Neut # (Auto) 3.9, Lymph # ( Auto) 1.2, Darke # (Auto) 0.5, Eos # (Auto) 0.4, Baso # (Auto) 0.0, Hypochromasia 2+, Anisocytosis 1+ 04/28/19 13:45: Urine Color Yellow, Urine Clarity Slightly, Urine pH 5.5, Ur Specific [place] 1.010, Urine Protein Negative, Urine Glucose (UA) Negative, Urine Ketones Negative, Urine Blood 2+, Urine Nitrite Negative, Urine Bilirubin Negative, Urine Urobilinogen 0.2, Ur Leukocyte Esterase 3+, Urine Microscopic RBC 20-30, Urine Microscopic WBC 10-20, Ur Squamous Epith Cells 2-5, Urine Bacteria Trace PLAN: DISCHARGE HOME DIET: HEART HEALTHY, CONSISTENT CARBOHYDRATES ACTIVITY: RESUME TOLERATED ELEVATE LEGS ABOVE THE LEVEL OF THE HIPS WHEN SITTING AND WHEN LYING IN BED CONTINUE TO USE OXGYEN AT 2-3 LITERS PER NASAL CANNULA WEIGH DAILY AND REPORT WEIGHT GAIN OVER 2 POUNDS IN ONE DAY OR 5 POUNDS IN ONE WEEK AN APPOINTMENT IS SCHEDULED WITH DR. PICKARD/GREGORIO PINEDA APRN ON April AT 3 PM CODE STATUS: FULL CODE MS. GRIFFIN IS ALERT AND ORIENTED X 3. SHE IS INSISTENT ON DISCHARGE HOME TODAY DUE TO AN APPOINTMENT WITH PAIN MANAGEMENT ON April. SHE LIVES WITH HER SISTER AND HAS CUSTODY OF HER NEPHEW. SHE IS INDEPENDENT WITH ADL'S. SHE IS CONTINENT OF BOWEL AND BLADDER. NO PAIN OR BURNING WITH URINATION IS REPORTED BY THE PATIENT. SHE FEEDS HERSELF AND HAS A GOOD APPETITE OF 50-100%. SHE CONTINUES TO HAVE PITTING EDEMA TO THE LOWER EXTREMITIES. OXYGEN IS WORN BY THE PATIENT AT ALL TIMES. SHE REPORTS SHE USES OXYGEN AT HOME. SHE DENIES USE OF ANY OTHER TYPE OF DURABLE MEDICAL EQUIPMENT. THE SKIN IS INTACT. THE LOWER ABDOMINAL FOLDS ARE MOIST AND PINK. THE PATIENT IS ENCOURAGED TO BATH DAILY AND TO KEEP THE ABDOMINAL FOLDS DRY. PATRICIA PICKARD MD
--- NOTE | 2019-04-30 11:56 | ECHO2D ---
Date of Exam: 04/28/19 Ordering Physician: DR. PATRICIA PICKARD Room #: 120 Reason for Echo: CHF, MORBID OBESITY, LEG EDEMA M-Mode Normal Adult Results LV Dimensions Normal Adult Results AoV Opening excursions >1.6 >1.6 LVEDD-base- 3.5-5.8 5.2 Ao root dimensions 2.0-3.7 3.7 LVESD-base- 3.1-4.6 L. Atrium dimensions 1.9-3.8 5.7 Post. Wall thickness 0.8-1.1 1.3 IV septum (thickness) 0.7-1.2 1.2 Post. Wall excursion 0.72-1.3 NORMAL Septal motion 0.7 Systolic motion R. Ventricular cavity 1.5-2.0 3.5 LVEF 60% 48% Paradoxical septal wall motion NORMAL 2-D : MILDLY HYPOKINETIC SEPTUM/ ENLARGED LEFT ATRIAL CAVITY, NORMAL VALVES, NO EFFUSION, NO THROMBUS, NORMAL LEFT VENTRICLE SIZE M-MODE: MV: NORMAL AV: NORMAL TV: NORMAL PV: CHAMBER SIZE: ENLARGED LEFT ATRIAL CAVITY/ ENLARGED RIGHT VENTRICLE CAVITY WALL MOTION: HYPOKINETIC SEPTUM PERICARDIUM: NORMAL INTERPRETATION: 1. LEFT VENTRICULAR HYPERTROPHY WITH ENLARGED LEFT ATRIAL CAVITY (5.7 CM) 2. HYPOKINETIC SEPTUM EJECTION FRACTION (5.7CM) 3. ENLARGED RIGHT VENTRICLE CAVITY 4. NORMAL VALVES MTDD
--- NOTE | 2019-04-30 13:42 | DS ---
DATE OF SERVICE: 04/29/19 FINAL DIAGNOSIS: 1. LEG EDEMA 2. CHF 3. A FIB WITH RVR 4. SOA 5. ANEMIA - DR. CADE 6. GRAVES DISEASE 7. A FIB, PER HISTORY (NO BLOOD THINNERS D/T HISTORY OF GI BLEED) 8. HTN 9. DILATED CARDIOMYOPATHY 10. DYSLIPIDEMIA 11. CAD 12. CHF 13. PEPTIC ULCERS W/ GASTROINTESTINAL HEMORRHAGE 2017 14. BOWEL PERFORATION - DR. PITTMAN 2017 15. COPD - OXYGEN DEPENDENT 16. DM, TYPE 2 17. CKD STAGE ? 18. NEPHROLITHIASIS, S/P STENT 2013 19. HYDRONEPHROSIS 20. DJD SPINE - DR. SHEARER (PAIN MANAGEMENT) 21. OA 22. DEPRESSION 23. ANXIETY 24. NON COMPLIANT WITH MEDICATIONS, APPOINTMENTS AND LIFESTYLE 25. BREAST AUGMENTATION 26. TUBAL LIGATION LAST ECHOCARDIOGRAM March, LAST VITALS Temp Pulse Resp BP Pulse Ox 97.4 F L 87 20 105/63 98 04/29/19 05:12 04/29/19 08:00 04/29/19 08:00 04/29/19 05:12 05:12 DISCHARGE INSTRUCTIONS: AN APPOINTMENT IS SCHEDULED WITH DR. PICKARD/GREGORIO PINEDA APRN ON April AT 3 PM. MEDICATIONS AT DISCHARGE: Albuterol Sulfate (Ventolin HFA) 90 mcg INH 2-4 Times DAILY Last Dose: Digoxin 125 mcg PO DAILY [facility] Last Dose: Carvedilol (Coreg) 3.125 mg PO BIDWM [facility] Last Admin: 04/29/19 08:35 Dose: 3.125 mg Ferrous Sulfate (Ferrous Sulfate) 324 mg PO DAILY [facility] Last Admin: 04/29/19 08:35 Dose: 324 mg Fluticasone Propionate (Flonase) 2 spray LAYLA DAILY [facility] Last Admin: 04/29/19 08:35 Dose: 2 spray Insulin Detemir (Levemir) 25 unit SUBCUT BEDTIME [facility] Last Admin: 04/28/19 20:59 Dose: 25 unit Levothyroxine Sodium (Synthroid) 200 mcg PO QDAC [facility] Last Admin 04/29/2019 at 08:40 Nystatin (Nystatin Cream) 1 applic TP BID [facility] Last Admin: 04/29/19 08:54 Dose: 1 applic Oxycodone/Acetaminophen (Percocet 7.5-325) 1 tab PO 0200,0800,1400,2000 [facility] Last Admin: 04/29/19 08:53 Dose: 1 tab Pantoprazole Sodium (Protonix) 40 mg PO BIDAC [facility] Last Admin: 04/29/19 05:43 Dose: 40 mg Potassium Chloride (K-Dur) 20 meq PO DAILYWM [facility] Last Admin: 04/29/19 08:35 Dose: 20 meq Simvastatin (Zocor) 10 mg PO BEDTIME [facility] Last Admin: 04/28/19 20:59 Dose: 10 mg Cozaar 25 mg PO DAILY [facility] Last Admin: Lasix 20 mg PO DAILY [facility] Last Admin: NEW PRESCRIPTIONS: LASIX 20 MG DAILY COZAAR 25 MG DAILY COREG 3.125 MG BID DISCONTINUED MEDICATIONS: MINOXIDIL DIET INSTRUCTIONS: HEART HEALTHY, CONSISTENT CARBOHYDRATES ACTIVITY: RESUME TOLERATED ELEVATE LEGS ABOVE THE LEVEL OF THE HIPS WHEN SITTING AND WHEN LYING IN BED CONTINUE TO USE OXGYEN AT 2-3 LITERS PER NASAL CANNULA WEIGH DAILY AND REPORT WEIGHT GAIN OVER 2 POUNDS IN ONE DAY OR 5 POUNDS IN ONE WEEK SMOKING: NOT APPLICABLE DISEASE SPECIFIC EDUCATION: LEG EDEMA AND IMPORTANCE OF ELEVATING THE LEGS DAILY WEIGHTS MEDICATIONS APPOINTMENT HOSPITAL COURSE: Idalmis was hospitalized from the office with shortness of breath, possibility of early CHF with leg edema, atrial fibrillation with rapid ventricular response. The patient was given an extra dose of Lanoxin and was put on Coreg 3.125 twice a day along with Cozaar 25 mg p.o. daily with Lasix and potassium supplements. The patient's home medications indicates that she hasn't been on any diuretic. It is doubtful that she is even taking her Lanoxin. The patient is noncompliant of lifestyle, medications and followup. The patient, during the stay in the hospital, had less leg edema. Her rate was controlled with atrial fibrillation. She was strongly advised to take all of her medications. Complications of atrial fibrillation discussed. CHF education carried out. She is advised to keep the legs up. Lasix and Coreg were added along with Cozaar to her list of medications. Echo was done which showed hypokinetic septum with LVH with enlarged LA cavity with ejection fraction close to 50%. ADDENDUM: The patient was advised to stay a couple of days in the hospital which she declined and decided to be discharged. Condition at time of discharge stable. Prognosis is guarded. TIME SPENT: More than 60 minutes. [facility]
--- NOTE | 2019-04-30 13:44 | PN ---
BILLING 04/27/19 ADMISSION DAY LEVEL 5 04/28/19 INTERMEDIATE 04/29/19 DISCHARGE MTDD
--- NOTE | 2019-06-05 11:33 | HP ---
DATE OF SERVICE: 04/27/19 HISTORY OF PRESENT ILLNESS: 68-year-old female with legs a lot more swollen, feeling more short of breath, gaining weight. PAST MEDICAL HISTORY: Atrial fibrillation Dyslipidemia COPD on 02 Diabetes mellitus type 2 Hypertension DJD spine CAD CHF Osteoarthritis knees and hip Dilated cardiomyopathy Hydronephrosis Anemia PAST SURGICAL HISTORY: Tubal Left breast knot Breast implants REVIEW OF SYSTEMS: CONSTITUTIONAL: Positive for fatigue. No fever. HEENT: No sinus drainage, no sore throat. RESPIRATORY: No cough. No hemoptysis. CARDIOVASCULAR: Positive for CHF symptoms. Positive for shortness of breath. No atypical chest pain for coronary artery disease. No angina, no palpitations. GASTROINTESTINAL: No melena or abdominal pain. No GERD. GENITOURINARY: No hematuria, no polyuria. SEED TECHNICIAN: No blackout, no dizziness, no headache, no double vision. Gait - wheelchair. MUSCULOSKELETAL: Osteoarthritis pain. No joint swelling. ENDOCRINE: Weight gain. SKIN: Not dry, no rash. PSYCHIATRIC: Not anxious, no depression, no suicidal thoughts, no homicidal thoughts. SOCIAL HISTORY: The patient is . No alcohol use. Quit smoking. FAMILY HISTORY: The father and mother are . Brothers - 4. Sisters - 3. MEDICATIONS: Levothyroxine 200 mg daily Folic acid daily Percocet (Dr. Shearer) 75/325 t.i.d. Iron 325 mg one b.i.d. Flonase daily Levemir Flextouch 25 cc b.i.d. Minoxidil 2.5 mg b.i.d. Requip 0.5 mg one daily Simvastatin 10 mg one daily Ventolin HFA 90 mcg two b.i.d. q.i.d. K+ 20 mEq one daily Protonix 40 mg b.i.d. Digoxin 0.125 mg daily 02 24 hours daily ALLERGIES: ELIQUIS, MACRODANTIN, Z-PACK, BIAXIN, KETEK, ERYTHROMYCIN PHYSICAL EXAMINATION: V/S: Pulse 116, BP 136/80, 02 sat 91% on 3L/NC/02. Height 5'7". GENERAL APPEARANCE: Oriented times three. HEENT: Normal. NECK: No JVP, no bruits. RESPIRATORY: Lungs have decreased breath sounds with creps at the bases. CARDIOVASCULAR: S1, S2, no S3, no murmurs, irregular, tachy. No cyanosis, clubbing. No ascites. GI/ABDOMEN: No tenderness. Bowel sounds are active. EXTREMITIES: +2, +3 bilateral lower extremity edema, pulses +1, equal. SEED TECHNICIAN: Deep tendon reflexes, sensory, motor and gait all normal. RECTAL/PELVIC: Refused colonoscopy. Pelvic - advised yearly. Patient refused breast exam. Refused mammogram. Refused colocare. ASSESSMENT: 1. LEG EDEMA 2. CHF 3. ATRIAL FIBRILLATION 4. SHORTNESS OF BREATH 5. NONCOMPLIANT WITH MEDS, DIET AND FOLLOWUP. 6. ANEMIA - DR. CADE. 7. ATRIAL FIBRILLATION. 8. DYSLIPIDEMIA. 9. CAD/CHF EF 40%. 10. COPD - 02 DEPENDENT. 11. DIABETES MELLITUS TYPE 2, A1C 12/16 (6.4). 12. HYPERTENSION. 13. DYSLIPIDEMIA. 14. DJD SPINE DR. SHEARER. 15. OSTEOARTHRITIS KNEES AND HIPS. 16. DILATED CARDIOMYOPATHY. 17. NEPHROLITHIASIS STATUS POST STENT. 18. HYDRONEPHROSIS. PLAN: 1. Admit with routine telemetry orders. 2. CBC, CMP now and daily. 3. Digoxin level. 4. Lasix 40 mg IV now and tomorrow. 5. Chest x-ray. 6. UA. 7. Elevate foot of bed. 8. Regular low salt diet. 9. Continue home medications. 10. ABG on 02 now. 11. Continue 02 @ 2-3 L/NC. 12. Daily weights. 13. T4, TSH. TIME SPENT: More than 70 minutes. MTDD
== END 2019-04-29 14:00 | disposition home or self-care (01) | DRG 292 ==
LOC: MEDSURG B 12:01
PROVIDERS: ADMIT Internal Medicine; ATTEND Internal Medicine
DX: E05.00 Thyrotoxicosis with diffuse goiter without thyrotoxic crisis or storm; F41.8 Other specified anxiety disorders; M47.9 Spondylosis, unspecified; E11.9 Type 2 diabetes mellitus without complications; Z91.19 Patient's noncompliance with other medical treatment and regimen; I25.10 Atherosclerotic heart disease of native coronary artery without angina pectoris; M19.90 Unspecified osteoarthritis, unspecified site; I48.2 Chronic atrial fibrillation; Z99.81 Dependence on supplemental oxygen; I10 Essential (primary) hypertension; D64.9 Anemia, unspecified; J44.9 Chronic obstructive pulmonary disease, unspecified; I50.9 Heart failure, unspecified; E78.5 Hyperlipidemia, unspecified; N13.30 Unspecified hydronephrosis; R06.02 Shortness of breath; N18.9 Chronic kidney disease, unspecified; I42.0 Dilated cardiomyopathy